=== PATIENT | female | born 2000 | race Caucasian/White ===

== ENCOUNTER 2019-12-23 23:19 | Inpatient (IN) | payer BC, MEDICAID ==
--- NOTE | 2019-12-23 23:48 | ED ---
General Adult HPI <Magda Taylor P - Last Filed: 12/24/19 01:39> - General Source: patient, family, RN notes reviewed <Antoni Sales - Last Filed: 12/24/19 01:56> - General Stated complaint: Mental Health Time Seen by Provider: 12/23/19 23:23 - History of Present Illness Initial comments: 19-year-old female with a past medical history of Thad's disease presents to the emergency Department for paranoid thoughts. Patient reports she has had paranoid thoughts for the past 5 months. Patient feels that people are out to get her. Patient thinks her phone and radio are being monitored by people who are after her. Patient states today she started to get really scared of this when she was driving and started to drive erratically and fast through red lights in an attempt to kill herself. Mother is very concerned about this. States that in the past few days she has not been acting normal. She locked everyone out of the house. Mother states that she keeps asking her if "she is in on this." Patient is currently having thoughts of harming herself as well.Patient has no other complaints at this time including shortness of breath, chest pain, abdominal pain, nausea or vomiting, headache, or visual changes. (Antoni Sales) - Related Data Home Medications Medication Instructions Recorded Confirmed Ibuprofen [Advil] 200 mg PO Q8HR PRN 07/28/15 07/28/15 Melatonin 3 mg PO HS 07/28/15 07/28/15 Methylphenidate HCl 72 mg PO DAILY 07/28/15 07/28/15 [Methylphenidate ER] Previous Rx's Medication Instructions Recorded Albuterol Nebulized [Ventolin 2.5 mg INHALATION Q4H #1 box 07/31/15 Nebulized] Polyethylene Glycol 3350 [Miralax] 17 gm PO DAILY #527 gm 07/31/15 Allergies Allergy/AdvReac Type Severity Reaction Status Date / Time venom-honey bee Allergy Swelling Verified 07/28/15 21:10 [bee venom (honey bee)] Review of Systems ROS Other: All systems not noted in ROS Statement are negative. <Magda Taylor P - Last Filed: 12/24/19 01:39> ROS Other: All systems not noted in ROS Statement are negative. <Mónica,Antoni P - Last Filed: 12/24/19 01:56> ROS Statement: Those systems with pertinent positive or pertinent negative responses have been documented in the HPI. 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 Then blood levels came back and lowered, didnt feel high enough to keep on the synthroid. Off of synthroid since she was about 9 y/o. History of Any Multi-Drug Resistant Organisms: None Reported Additional Past Surgical History / Comment(s): PT HAD BEEN IN HOSPITAL COUPLE TIMES AND WAS DX WITH ASTHMA IN 2006. PT HAS HX OF AN ENDOSCOPY AT [facility] AND DID FINE WITH ANESTHESIA Past Anesthesia/Blood Transfusion Reactions: No Reported Reaction Additional Past Anesthesia/Blood Transfusion Reaction / Comment(s): NO BLOOD TRANSFUSION Past Psychological History: ADD/ADHD Past Alcohol Use History: None Reported Past Drug Use History: None Reported - Past Family History Brother(s) Family Medical History: Asthma Additional Family Medical History / Comment(s): BIO BROTHER WAS DX W/ASTHMA BUT GREW OUT OF IT BY AGE 3. <Antoni Sales P - Last Filed: 12/24/19 01:56> General Exam General appearance: alert, in no apparent distress Head exam: Present: atraumatic, normocephalic, normal inspection Eye exam: Present: normal appearance, PERRL, EOMI. Absent: scleral icterus, conjunctival injection, periorbital swelling ENT exam: Present: normal exam, mucous membranes moist Neck exam: Present: normal inspection, full ROM. Absent: tenderness, meningismus, lymphadenopathy Respiratory exam: Present: normal lung sounds bilaterally. Absent: respiratory distress, wheezes, rales, rhonchi, stridor Cardiovascular Exam: Present: regular rate, normal rhythm, normal heart sounds. Absent: systolic murmur, diastolic murmur, rubs, gallop, clicks GI/Abdominal exam: Present: soft, normal bowel sounds. Absent: distended, tenderness, guarding, rebound, rigid Neurological exam: Present: alert Psychiatric exam: Present: anxious (Tearful) <Antoni Sales P - Last Filed: 12/24/19 01:56> Course Vital Signs 12/23/19 23:42 Temperature 98.6 F Pulse Rate 98 Respiratory 18 Rate Blood Pressure 132/84 O2 Sat by Pulse 97 Oximetry Medical Decision Making <Magda Taylor - Last Filed: 12/24/19 01:39> - Medical Decision Making Personally saw and evaluated this patient. 19-year-old female who is experiencing some acute paranoia anxieties. Does admit to polysubstance use. Patient is agreeable to admission to the psychiatric unit. A cert was completed (Magda Taylor) - Lab Data Lab Results 12/23/19 Range/Units 23:41 Urine Color Yellow Urine Appearance Cloudy H (Clear) Urine pH 6.0 (5.0-8.0) Ur Specific [place] 1.024 (1.001-1.035) Urine Protein Trace H (Negative) Urine Glucose (UA) Negative (Negative) Urine Ketones 4+ H (Negative) Urine Blood Negative (Negative) Urine Nitrite Negative (Negative) Urine Bilirubin Negative (Negative) Urine Urobilinogen <2.0 (<2.0) mg/dL Ur Leukocyte Esterase Moderate H (Negative) Urine RBC 4 (0-5) /hpf Urine WBC 25 H (0-5) /hpf Ur Squamous Epith Cells 9 H (0-4) /hpf Urine Bacteria Rare H (None) /hpf Hyaline Casts 1 (0-2) /lpf Urine Mucus Many H (None) /hpf Urine Opiates Screen Not Detected (NotDetected) Ur Oxycodone Screen Not Detected (NotDetected) Urine Methadone Screen Not Detected (NotDetected) Ur Propoxyphene Screen Not Detected (NotDetected) Ur Barbiturates Screen Not Detected (NotDetected) U Tricyclic Antidepress Not Detected (NotDetected) Ur Phencyclidine Scrn Not Detected (NotDetected) Ur Amphetamines Screen Not Detected (NotDetected) U Methamphetamines Scrn Not Detected (NotDetected) U Benzodiazepines Scrn Not Detected (NotDetected) Urine Cocaine Screen Not Detected (NotDetected) U Marijuana (THC) Screen Detected H (NotDetected) Disposition <Magda Taylor - Last Filed: 12/24/19 01:39> Is patient prescribed a controlled substance at d/c from ED?: No Time of Disposition: 01:55 <Antoni Sales P - Last Filed: 12/24/19 01:56> Clinical Impression: Paranoid delusion, Suicidal thoughts Disposition: ADMITTED IP TO THIS HOSP Condition: Fair
[2019-12-24 00:13] LABS: Appearance,Urine Cloudy (Clear); Bacteria,Urine Rare /hpf; Bilirubin,Urine Negative (Negative); Blood,Urine Negative (Negative); Color,Urine Yellow; Glucose,Urine (UA) Negative (Negative); Hyaline Casts,Urine 1 /lpf (0-2); Ketones,Urine 4+ (Negative); Leukocyte Esterase,Urine Moderate (Negative); Mucus,Urine Many /hpf; Nitrite,Urine Negative (Negative); Protein,Urine Trace (Negative); RBC,Urine 4 /hpf (0-5); Specific Gravity,Urine 1.024 (1.001-1.035); Squamous Epithelial Cell,Urine 9 /hpf (0-4); Urobilinogen,Urine <2.0 mg/dL (<2.0); WBC,Urine 25 /hpf (0-5)
[2019-12-24 00:16] LABS: Amphetamine Screen,Urine Not Detected (NotDetected); Barbiturate Screen,Urine Not Detected (NotDetected); Benzodiazepines Screen,Urine Not Detected (NotDetected); Cocaine Screen,Urine Not Detected (NotDetected); Methadone Screen, Urine Not Detected (NotDetected); Opiate Screen,Urine Not Detected (NotDetected); Oxycodone Screen, Urine Not Detected (NotDetected); Phencyclidine Screen,Urine Not Detected (NotDetected); Tricyclic Antidepressant,Urine Not Detected (NotDetected); Urn Cannabinoid Scrn Detected (NotDetected)
[2019-12-24] MEDS ORDERED: LORazepam 1 MG TAB PO STA (01:19)
[2019-12-24] MEDS ORDERED: MAG HYDROX/AL HYDROX/SIMETH 30 ML CUP PO PRN (01:59)
[2019-12-24] MEDS ORDERED: ACETAMINOPHEN TAB 325 MG TAB PO PRN (01:59)
[2019-12-24 09:17] LABS: Basophils % (A) 1 %; Eosinophils # (A) 0.1 k/uL (0-0.7); Eosinophils % (A) 1 %; HCT 41.1 % (34.0-46.0); HGB 13.6 gm/dL (11.4-16.0); Lymphocytes # (A) 1.1 k/uL (1.0-4.8); Lymphocytes % (A) 20 %; MCH 30.4 pg (25.0-35.0); MCV 92.1 fL (80.0-100.0); Mean Platelet Volume 7.6; Monocytes # (A) 0.3 k/uL (0-1.0); Monocytes % (A) 5 %; Neutrophils # (A) 3.8 k/uL (1.3-7.7); Neutrophils % (A) 71 %; Platelet Count 265 k/uL (150-450); RBC 4.46 m/uL (3.80-5.40); RDW 12.8 % (11.5-15.5); WBC 5.3 k/uL (4.0-11.0)
[2019-12-24 09:32] LABS: ALT 13 U/L (4-34); AST 21 U/L (14-36); African American GFR (CKD) >90 (>60 ml/min/1.73 sqM); Alkaline Phosphatase 52 U/L (38-126); Anion Gap 11 mmol/L; Blood Urea Nitrogen 12 mg/dL (7-17); Calcium 9.5 mg/dL (8.4-10.2); Carbon Dioxide 23 mmol/L (22-30); Chloride 104 mmol/L (98-107); Cholesterol 143 mg/dL (<200); Glucose 121 mg/dL (74-99); HDL Cholesterol 61 mg/dL (40-60); LDL Cholesterol,Calculated 71 mg/dL (0-99); Non-African American GFR(CKD) >90 (>60 ml/min/1.73 sqM); Potassium 3.5 mmol/L (3.5-5.1); Sodium 138 mmol/L (137-145); Total Bilirubin 1.1 mg/dL (0.2-1.3); Total Protein 7.5 g/dL (6.3-8.2); Triglycerides 55 mg/dL (<150)
[2019-12-24] MEDS: NICOTINE 21MG/24HR PATCH TRANSDERM SCH (11:40)
[2019-12-24] MEDS: polyethylene glycoL 3350 17 GM POWD.PACK PO SCH (12:25)
[2019-12-24] MEDS: ZIPRASIDONE 20 MG VIAL IM PRN (13:25)
[2019-12-24] MEDS: ALBUTEROL NEBULIZED 2.5 MG/3 ML INHALATION SCH ×2 (13:34→18:34)
--- NOTE | 2019-12-24 18:33 | P.CONS ---
History of Present Illness - Reason for Consult Consult date: 12/24/19 Medical management Requesting physician: Mio Burch - Chief Complaint Psychotic - History of Present Illness Consultation: This is a 19-year-old patient of Dr. yepez from [place]. Has a history of Thad's disease. 4 paranoid parts. She's had these symptoms for about 5 months. She feels a people out to get her. She thinks cell phone and the radio being monitored by the people. Day of presentation she felt that people will really help to get her she was driving she started driving erratically and went through red lights. Last 5 days she has been acting more abnormal. She EVERYBODY out of the house. She keeps asking if she is on this. She's also h aving thoughts of harming herself. At about 1 PM today she received 20 mg of Geodon. Patient hardly stepped off that. Date of this afternoon patient was having significant amount of vomiting. No bowel pain. Patient had a fair breakfast this morning otherwise.. No fever no chills. No abdominal pain. Review of systems: GEN.: Tired EYES: None HEENT: None NECK: None RESPIRATORY: None CARDIOVASCULAR: None GASTROINTESTINAL: As above GENITOURINARY: None MUSCULOSKELETAL: None LYMPHATICS: None HEMATOLOGICAL: None PSYCHIATRY: As above NEUROLOGICAL: None Past medical history to include: Asthma, Thad's, ADHD. Social history: Lives with mother. vapes.. This 2-4 joints a day. Physical examination: VITAL SIGNS: 97.1, 70, 14, 113/85, 99% room air GENERAL: BMI 18, laying in bed, nauseated. EYES: Pupils equal. Conjunctiva normal. HEENT: External appearance of nose and ears normal, oral cavity grossly normal. NECK: JVD not raised; masses not palpable. HEART: First and second heart sounds are normal; no edema. LUNGS: Respiratory rate normal; clear to auscultation. ABDOMEN: Soft, nontender, liver spleen not palpable, no masses palpable. PSYCH: Anxious NEUROLOGICAL: Cranial nerves grossly intact; no facial asymmetry, power and sensation grossly intact. LYMPHATICS: No lymph nodes palpable in the axilla and neck. INVESTIGATIONS, reviewed in the clinical context: White count 5.3 hemoglobin 13.6 platelets 265 potassium 3.5 creatinine 0.53 UA results noted with's,'s epithelial 9 Urine drug screen-marijuana detected Assessment: -Decreased to marijuana use -Chronic nicotine use -Nausea vomiting possibly side effect of Geodon Plan: Patient advised again smoking marijuana. Possible nausea vomiting secondary to Geodon. She settled down. Nicotine patch. Patient to follow-up with family doctor. Antipsychotics as per psychiatry. Thank you Dr. 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 Then blood levels came back and lowered, didnt feel high enough to keep on the synthroid. Off of synthroid since she was about 9 y/o. History of Any Multi-Drug Resistant Organisms: None Reported Additional Past Surgical History / Comment(s): PT HAD BEEN IN HOSPITAL COUPLE TIMES AND WAS DX WITH ASTHMA IN 2006. PT HAS HX OF AN ENDOSCOPY AT [facility] AND DID FINE WITH ANESTHESIA Past Anesthesia/Blood Transfusion Reactions: No Reported Reaction Additional Past Anesthesia/Blood Transfusion Reaction / Comm: NO BLOOD TRANSFUSION Past Psychological History: ADD/ADHD Smoking Status: Vaper Past Alcohol Use History: None Reported Past Drug Use History: Marijuana - Past Family History Brother(s) Family Medical History: Asthma Additional Family Medical History / Comment(s): BIO BROTHER WAS DX W/ASTHMA BUT GREW OUT OF IT BY AGE 3. Medications and Allergies Home Medications Medication Instructions Recorded Confirmed Type Ibuprofen [Advil] 200 mg PO Q8HR PRN 07/28/15 12/24/19 History Melatonin 3 mg PO HS 07/28/15 12/24/19 History Methylphenidate HCl 72 mg PO DAILY 07/28/15 12/24/19 History [Methylphenidate ER] Albuterol Nebulized [Ventolin 2.5 mg INHALATION Q4H #1 box 07/31/15 12/24/19 Rx Nebulized] Polyethylene Glycol 3350 [Miralax] 17 gm PO DAILY #527 gm 07/31/15 12/24/19 Rx Allergies Allergy/AdvReac Type Severity Reaction Status Date / Time venom-honey bee Allergy Swelling Verified 12/24/19 02:05 [bee venom (honey bee)] Physical Exam Vitals: Vital Signs Temp Pulse Pulse Resp BP BP Pulse Ox 12/24/19 02:28 97.1 F L 70 14 113/85 99 12/23/19 23:42 98.6 F 98 18 132/84 97 Intake and Output 12/23/19 12/24/19 12/24/19 22:59 06:59 14:59 Other: Weight 50.7 kg Results CBC & Chem 7: 12/24/19 08:51 12/24/19 08:51 Labs: Abnormal Lab Results - Last 24 Hours (Table) 12/23/19 12/24/19 Range/Units 23:41 08:51 Glucose 121 H (74-99) mg/dL HDL Cholesterol 61 H (40-60) mg/dL Urine Appearance Cloudy H (Clear) Urine Protein Trace H (Negative) Urine Ketones 4+ H (Negative) Ur Leukocyte Esterase Moderate H (Negative) Urine WBC 25 H (0-5) /hpf Ur Squamous Epith Cells 9 H (0-4) /hpf Urine Bacteria Rare H (None) /hpf Urine Mucus Many H (None) /hpf U Marijuana (THC) Screen Detected H (NotDetected)
[2019-12-24 19:55] LABS: Hemoglobin A1C 5.3 % (4.0-6.0)
[2019-12-24] MEDS: LORazepam 1 MG TAB PO PRN (20:44)
[2019-12-24] MEDS: MELATONIN 3 MG TABLET PO SCH (22:04)
[2019-12-24] MEDS: PROMETHAZINE INJ 25 MG/ML 1 ML VIAL IM PRN (22:05)
[2019-12-24 22:23] LABS: Glucose,Whole Blood 116 mg/dL (75-99)
[2019-12-24] MEDS ORDERED: LACTATED RINGERS 1,000 ML IV SCH (23:00)
[2019-12-24] MEDS: CEPHALEXIN 250 MG CAP PO SCH (23:12)
[2019-12-24 23:24] LABS: African American GFR (CKD) >90 (>60 ml/min/1.73 sqM); Anion Gap 13 mmol/L; Blood Urea Nitrogen 13 mg/dL (7-17); Calcium 9.8 mg/dL (8.4-10.2); Carbon Dioxide 18 mmol/L (22-30); Chloride 104 mmol/L (98-107); Glucose 107 mg/dL (74-99); Magnesium 1.9 mg/dL (1.6-2.3); Non-African American GFR(CKD) >90 (>60 ml/min/1.73 sqM); Potassium 3.6 mmol/L (3.5-5.1); Sodium 135 mmol/L (137-145)
[2019-12-25] MEDS: CEPHALEXIN 250 MG CAP PO SCH ×5 (00:45→21:14)
[2019-12-25] MEDS ORDERED: LACTATED RINGERS 500 ML IV SCH (03:30)
[2019-12-25] MEDS: PROMETHAZINE INJ 25 MG/ML 1 ML VIAL IM PRN (03:50)
[2019-12-25] MEDS: LORazepam 2 MG/ML INJ IM PRN (04:25)
--- NOTE | 2019-12-25 07:49 | P.HP ---
Psychiatric H&P - . H&P Date: 12/24/19 History & Physical: Allergies Allergy/AdvReac Type Severity Reaction Status Date / Time venom-honey bee Allergy Swelling Verified 12/24/19 02:05 [bee venom (honey bee)] Vital Signs Temp 98.1 F 12/25/19 03:06 Pulse 72 12/24/19 22:05 Resp 18 12/25/19 03:06 BP 121/94 12/25/19 03:06 Pulse Ox 100 12/24/19 22:05 Intake & Output 12/24/19 12/25/19 12/25/19 18:59 06:59 18:59 Intake Total 500 Output Total 200 Balance 300 Intake: IV 500 Invasive Line 1 500 Output: Urine 0 Emesis 200 Other: # Voids 0 # Bowel Movements 1 Laboratory Last Values WBC 5.3 k/uL (4.0-11.0) 12/24/19 08:51 RBC 4.46 m/uL (3.80-5.40) 12/24/19 08:51 Hgb 13.6 gm/dL (11.4-16.0) 12/24/19 08:51 Hct 41.1 % (34.0-46.0) 12/24/19 08:51 MCV 92.1 fL (80.0-100.0) 12/24/19 08:51 MCH 30.4 pg (25.0-35.0) 12/24/19 08:51 MCHC 33.0 g/dL (31.0-37.0) 12/24/19 08:51 RDW 12.8 % (11.5-15.5) 12/24/19 08:51 Plt Count 265 k/uL (150-450) 12/24/19 08:51 Neutrophils % 71 % 12/24/19 08:51 Lymphocytes % 20 % 12/24/19 08:51 Monocytes % 5 % 12/24/19 08:51 Eosinophils % 1 % 12/24/19 08:51 Basophils % 1 % 12/24/19 08:51 Neutrophils # 3.8 k/uL (1.3-7.7) 12/24/19 08:51 Lymphocytes # 1.1 k/uL (1.0-4.8) 12/24/19 08:51 Monocytes # 0.3 k/uL (0-1.0) 12/24/19 08:51 Eosinophils # 0.1 k/uL (0-0.7) 12/24/19 08:51 Basophils # 0.0 k/uL (0-0.2) 12/24/19 08:51 Sodium 135 mmol/L (137-145) L 12/24/19 23:03 Potassium 3.6 mmol/L (3.5-5.1) 12/24/19 23:03 Chloride 104 mmol/L (98-107) 12/24/19 23:03 Carbon Dioxide 18 mmol/L (22-30) L 12/24/19 23:03 Anion Gap 13 mmol/L 12/24/19 23:03 BUN 13 mg/dL (7-17) 12/24/19 23:03 Creatinine 0.43 mg/dL (0.52-1.04) L 12/24/19 23:03 Est GFR (CKD-EPI)AfAm >90 (>60 ml/min/1.73 sqM) 12/24/19 23:03 Est GFR (CKD-EPI)NonAf >90 (>60 ml/min/1.73 sqM) 12/24/19 23:03 Glucose 107 mg/dL (74-99) H 12/24/19 23:03 POC Glucose (mg/dL) 116 mg/dL (75-99) H 12/24/19 22:20 POC Glu [employer] Lianet Granados 12/24/19 22:[address] Glu mg/dL 105 12/24/19 08:51 Hemoglobin A1c 5.3 % (4.0-6.0) 12/24/19 08:51 Calcium 9.8 mg/dL (8.4-10.2) 12/24/19 23:03 Magnesium 1.9 mg/dL (1.6-2.3) 12/24/19 23:03 Total Bilirubin 1.1 mg/dL (0.2-1.3) 12/24/19 08:51 AST 21 U/L (14-36) 12/24/19 08:51 ALT 13 U/L (4-34) 12/24/19 08:51 Alkaline Phosphatase 52 U/L (38-126) 12/24/19 08:51 Total Protein 7.5 g/dL (6.3-8.2) 12/24/19 08:51 Albumin 5.0 g/dL (3.5-5.0) 12/24/19 08:51 Triglycerides 55 mg/dL (<150) 12/24/19 08:51 Cholesterol 143 mg/dL (<200) 12/24/19 08:51 LDL Cholesterol, Calc 71 mg/dL (0-99) 12/24/19 08:51 HDL Cholesterol 61 mg/dL (40-60) H 12/24/19 08:51 TSH 3.990 mIU/L (0.465-4.680) 12/24/19 08:51 Urine Color Yellow 12/23/19 23:41 Urine Appearance Cloudy (Clear) H 12/23/19 23:41 Urine pH 6.0 (5.0-8.0) 12/23/19 23:41 Ur Specific [place] 1.024 (1.001-1.035) 12/23/19 23:41 Urine Protein Trace (Negative) H 12/23/19 23:41 Urine Glucose (UA) Negative (Negative) 12/23/19 23:41 Urine Ketones 4+ (Negative) H 12/23/19 23:41 Urine Blood Negative (Negative) 12/23/19 23:41 Urine Nitrite Negative (Negative) 12/23/19 23:41 Urine Bilirubin Negative (Negative) 12/23/19 23:41 Urine Urobilinogen <2.0 mg/dL (<2.0) 08 23:41 Ur Leukocyte Esterase Moderate (Negative) H 12/23/19 23:41 Urine RBC 4 /hpf (0-5) 12/23/19 23:41 Urine WBC 25 /hpf (0-5) H 12/23/19 23:41 Ur Squamous Epith Cells 9 /hpf (0-4) H 12/23/19 23:41 Urine Bacteria Rare /hpf (None) H 12/23/19 23:41 Hyaline Casts 1 /lpf (0-2) 12/23/19 23:41 Urine Mucus Many /hpf (None) H 12/23/19 23:41 Urine HCG, Qual Not Detected (Not Detectd) 12/23/19 23:41 Urine Opiates Screen Not Detected (NotDetected) 12/23/19 23:41 Ur Oxycodone Screen Not Detected (NotDetected) 12/23/19 23:41 Urine Methadone Screen Not Detected (NotDetected) 12/23/19 23:41 Ur Propoxyphene Screen Not Detected (NotDetected) 12/23/19 23:41 Ur Barbiturates Screen Not Detected (NotDetected) 12/23/19 23:41 U Tricyclic Antidepress Not Detected (NotDetected) 12/23/19 23:41 Ur Phencyclidine Scrn Not Detected (NotDetected) 12/23/19 23:41 Ur Amphetamines Screen Not Detected (NotDetected) 12/23/19 23:41 U Methamphetamines Scrn Not Detected (NotDetected) 12/23/19 23:41 U Benzodiazepines Scrn Not Detected (NotDetected) 12/23/19 23:41 Urine Cocaine Screen Not Detected (NotDetected) 12/23/19 23:41 U Marijuana (THC) Screen Detected (NotDetected) H 12/23/19 23:41 12/25/19 07:35 History of present illness: The patient is somewhat pressured and therefore not a real good historian. It seems that the last 3 months she is been having more trouble with believe that her phone and radio are being monitored and that people are staring at her. She began to even worry that her mom was in on it. She was driving her car and began to feel she was being followed and began to drive too fast not paying attention to rules of the road and had a psychotic t hought that since her going to kill me, as well kill myself. She purchased a brand-new life phone which is very expensive and she felt it was hacked so she threw it out the window due to her mother's concern and these events patient was brought to the ER and admitted to the psychiatric unit. She is not on any psychotropic medicines at this time except for 3 mg of melatonin to help her sleep Past psychiatric history the patient was once diagnosed with ADD and took Concerta can't remember whether that helped has had no medications for a long period of time. No psychiatric hospitalizations Medical: The patient has a history of asthma and history of Thad's thyroiditis which backed off to the point she does not need any kind of thyroid supplement her medication. She is young and relatively healthy otherwise has not gained or lost weight lately but does complain of trouble sleeping. Review of systems other than some sleep problems and some decrease in appetite and the day of admission she was throwing up no trouble with aches and pains or weakness or fainting dizziness or blurred vision or trouble breathing the rest of the review of systems is negative She has not had labs in the long period time approximate 4 years ago. We ran labs here and she had a normal hematology her chemistry was off somewhat with her serum salt being low sodium 135 and chloride was okay carbon dioxide was low GFR was low glucose was okay with 107. Urinalysis showed a cloudy trace protein 4+ ketones she has not been eating lately and she felt that her food was poisoned moderate leukocyte 25 white count. She could have a slight urinary tract infection I think though she starts drinking fluids and eating properly that will pry clear up so we will recheck it. On toxicology her marijuana was positive everything else negative. Vital signs temperature 97.9 heart rate 72 respiration 20 blood pressure 119/64 and O2 sat 100 Social history the patient's the third of 6 children in the family she was raised in. She was adopted at age 2 and knows little about her family of origin except that her mother from a drug overdose and her dad was in residential. As far she knows she is full-term child and healthy as a baby she finished high school although she always had to struggle she said school was terrible because she could not focus and all her thoughts would jumble up together. 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 She had a boyfriend for the last 5 months felt that he really cared about her then she found that he was cheating on her and that has probably contributed to the recent increase in her symptoms. She has been living with [facility] at this point she really has no place to go when she is discharged. She says she's been sitting in the apartment watching TV most of the time. Mental status exam the patient is alert almost too bubbly and open with slight pressure of speech reasonable self-care good eye contact gait and station normal she could remember 3 of 3 objects after 3 minutes although I to repeat them for her to get is in the first place. General information is somewhat impaired she going name the current and previous president but partly her mind gets to racing for example when asked to name the [place] she said [place] Dwyer superior and forgot here on in trying to spell world backward she is flipped on are around when asked to abstract how cats and snakes are alike she said there are not said how they alike and different from a stone she said they're living and then she could not think of anything else it seemed and she agreed that her mind races off from the question she says that right now in this setting she does not feel like people are watching her and she seemed very open with me did not seem to be reacting to voices Diagnosis: Brief psychotic disorder ADHD Assessment plan the patient is a danger to herself and others because and her fear she does sings that would endanger both herself and others and even has thoughts that are rational that she killed herself she can solve the whole problem The plan is to start her on an antipsychotic will give her 100 of Seroquel tonight 200 tomorrow and get her up to 300 if the paranoia clears we might consider adding something for depression and focus such as Wellbutrin.
--- NOTE | 2019-12-25 09:45 | P.PN ---
Subjective Progress Note Date: 12/25/19 Principal diagnosis: Diagnosis: Brief psychotic disorder Subjective: The patient had 100 mg of Seroquel last night she is somewhat sleepy this morning Objective the patient had difficult time yesterday she had a psychotic experience whereby his face looked the same and it really bothered her and had to have Geodon 20 IM. Early this morning she was throwing up a lot. Son likely that this was from the Seroquel little unclear as to what it was from could be just severe anxiety. She was feeling sleepy this morning but didn't complain of any nausea or vomiting when I saw her at 9:00 Vital signs: Temperature 98.1 she doesn't have a fever respirations 18 blood pressure 121/94 which is a little elevated diastolic she runs around 70 and oxygenation is fine Labs: Nothing acute ROM hematology was fine some other indices are slightly off like the creatinine was low but wasn't yesterday and sodium was low just a little bit nothing acute that would explain her problems On mental status exam the patient is sleepy and did not want to talk but oriented good eye contact said she was doing okay did not look anxious Assessment is that she tolerated the medicine but is not enough to really give her much relief will see if she needs Geodon today and I will increase his Seroquel to 200 and hopefully she will be too sleepy will probably have to get to 300 before she gets some real relief of the psychosis Objective - Vital Signs Vital signs: Vital Signs Temp 98.1 F 12/25/19 03:06 Pulse 72 12/24/19 22:05 Resp 18 12/25/19 03:06 BP 121/94 12/25/19 03:06 Pulse Ox 100 12/24/19 22:05 Intake & Output 12/24/19 12/25/19 12/25/19 18:59 06:59 18:59 Intake Total 500 Output Total 200 Balance 300 Intake: IV 500 Invasive Line 1 500 Output: Urine 0 Emesis 200 Other: # Voids 0 # Bowel Movements 1 - Labs CBC & Chem 7: 12/24/19 08:51 12/24/19 23:03 Labs: Abnormal Lab Results - Last 24 Hours (Table) 12/24/19 12/24/19 Range/Units 22:20 23:03 Sodium 135 L (137-145) mmol/L Carbon Dioxide 18 L (22-30) mmol/L Creatinine 0.43 L (0.52-1.04) mg/dL Glucose 107 H (74-99) mg/dL POC Glucose (mg/dL) 116 H (75-99) mg/dL Microbiology - Last 24 Hours (Table) 12/23/19 23:41 Urine Culture - Preliminary Urine,Voided
[2019-12-25 09:54] LABS: African American GFR (CKD) >90 (>60 ml/min/1.73 sqM); Anion Gap 10 mmol/L; Blood Urea Nitrogen 11 mg/dL (7-17); Calcium 9.1 mg/dL (8.4-10.2); Carbon Dioxide 24 mmol/L (22-30); Chloride 100 mmol/L (98-107); Glucose 88 mg/dL (74-99); Magnesium 1.9 mg/dL (1.6-2.3); Non-African American GFR(CKD) >90 (>60 ml/min/1.73 sqM); Potassium 3.7 mmol/L (3.5-5.1); Sodium 134 mmol/L (137-145)
[2019-12-25] MEDS: polyethylene glycoL 3350 17 GM POWD.PACK PO SCH (10:22)
[2019-12-25] MEDS: NICOTINE 21MG/24HR PATCH TRANSDERM SCH (10:22)
[2019-12-25] MEDS: QUEtiapine 100 MG TAB PO SCH ×2 (19:53→21:14)
[2019-12-25] MEDS: MELATONIN 3 MG TABLET PO SCH ×2 (19:53→21:14)
[2019-12-26] MEDS: NICOTINE 21MG/24HR PATCH TRANSDERM SCH ×2 (10:29→21:14)
[2019-12-26] MEDS: polyethylene glycoL 3350 17 GM POWD.PACK PO SCH (10:29)
[2019-12-26] MEDS: CEPHALEXIN 250 MG CAP PO SCH ×3 (10:29→21:12)
[2019-12-26] MEDS ORDERED: ZIPRASIDONE 20 MG VIAL IM ONE (11:57)
[2019-12-26] MEDS ORDERED: WATER FOR INJECTION, STERILE 10 ML IV ONE (11:57)
[2019-12-26] MEDS: LORazepam 2 MG/ML INJ IM PRN (12:07)
[2019-12-26] MEDS: ZIPRASIDONE 20 MG VIAL IM PRN (12:07)
[2019-12-26] MEDS: MELATONIN 3 MG TABLET PO SCH (21:12)
[2019-12-26] MEDS: QUEtiapine 100 MG TAB PO SCH (21:12)
--- NOTE | 2019-12-27 07:19 | P.PN ---
Subjective Progress Note Date: 12/26/19 Principal diagnosis: Diagnosis: Brief psychotic disorder Subjective: The patient says that she talk to her mother who is a nurse who said that yes I was a registered doctor, however she does not trust her mother. Yesterday she admits to thinking everybody had the same face and it made her very anxious. However she now says, "I just made a mistake". She admits that she was using street drugs and says that she is determined to stay off of them that "I'm not crazy". She started weeping at the thought that she might have a psychotic disorder. She said, "I'm not going to take any medications I don't need medications". She says she slept okay last night and is not feeling as anxious this morning. However she is was so fearful of a patient walking down the that she move near to me and said I'm afraid of that man can I stand next to you? She said that she wanted talk to real doctor not a psychiatrist. When I explained that a psychiatrist becomes an M.D. and is trained in medicine before he goes on to specialize in psychiatry, she listened but seemed skeptic al. Objective: Patient did have Seroquel 100 last night I think she is somewhat better she does not look lethargic by think she needs a higher dose little bit more time for her to kick and she is still excessively anxious and paranoid. The patient is having a lot of trouble with chills and agitation restless. Her vital signs are okay temperature is not elevated 98 for heart rate is not elevated 65 respiration 14 blood pressure 111/53 room air was 98. ( Probably she is going through withdrawal from all the street drugs she used). Labs she had another general chemistry run yesterday sodium is gone down from 138 on 83-134 maybe from the vomiting otherwise everything was fine. She was noted to sleep well last night. Thisshe denies any suicidality or homicidality seems oriented and logical Mental status the patient has a very tense affect and is unable to trust her mother or me or the other patients. She does not seem to be responding to voices and says "I am not crazy ". She does have difficulty waiting her logic together. For example she jumps from I'm not going to use drugs, to I'm not crazy, to I want to talk to her real doctor, without tying any of these together. Assessment plan the patient is a danger to herself and others that she remains paranoid and in her paranoia she was thinking of killing herself to keep other people from killing her and was driving dangerously which endangered other people. I think that she is just still paranoid and wants to get out of here and his private paranoid about the medication and so is saying that she is fine now but she is not. Some going to increase the Seroquel to 200 tonight and if she takes that right 300 tomorrow. However she refuses to take it then we will have to take her to court we will petition and cert her Objective - Vital Signs Vital signs: Vital Signs Temp 98.4 F 12/26/19 06:44 Pulse 65 12/26/19 06:44 Resp 14 12/26/19 06:44 BP 111/53 12/26/19 06:44 Pulse Ox 98 12/25/19 21:14 - Labs CBC & Chem 7: 12/24/19 08:51 12/25/19 09:06 Labs: Abnormal Lab Results - Last 24 Hours (Table) 12/25/19 Range/Units 09:06 Sodium 134 L (137-145) mmol/L Creatinine 0.48 L (0.52-1.04) mg/dL Microbiology - Last 24 Hours (Table) 12/23/19 23:41 Urine Culture - Final Urine,Voided
[2019-12-27] MEDS: CEPHALEXIN 250 MG CAP PO SCH ×3 (08:25→21:44)
[2019-12-27] MEDS: polyethylene glycoL 3350 17 GM POWD.PACK PO SCH (08:25)
[2019-12-27] MEDS: NICOTINE 21MG/24HR PATCH TRANSDERM SCH (08:25)
--- NOTE | 2019-12-27 10:48 | P.PN ---
Subjective Progress Note Date: 12/27/19 Principal diagnosis: Diagnosis: Brief psychotic disorder Subjective: Patient admits that things in here do make her anxious, she denies any thoughts that she should kill herself or hurt others. She says that there are sharp things in her room that her roommate/stop the roommates pillow and probably had the short things in the patient's bed and that's why she wants to staff to make her bed for her. Objective: Nursing staff report that last night she had delusional agitation in regards to her room not being clean and it not being possible for her to do her own cleaning, she was also preoccupied with doctors aren't actually doctors however she did take her Seroquel going to increase that to 300 tonight and hopefully start getting some clearing of this delusional agitation. She had to have a shot of Geodon and Ativan because she would not take medicines when agitated. Vital signs temperature 98.9 heart rate 78 respiration 14 blood pressure 111/59 Labs: No new labs yesterday or today Staff report that she is anxious, mood swing between smiling and sad. She is able take care of her ADLs she has very little interaction with peers often withdrawn and sometimes having very poor boundaries she was found with one of male peers in bed is unclear who invited whom. She is quite emotional weeping over the fact that she couldn't remember all the patient's names although she's only been here a couple of days. Speech is often pressured. Groups she is she does not attend groups. She was able to sleep well Patient has a good sense of humor is alert good eye contact much calmer today points out she did take her medicine last night. However she does get off on how the reason she did not want to make her bed she thought that her roommate may have had some sharp objects in her bed and that she could get injured trying to make her own bed. She still felt like that was a reasonable concern Assessment: I believe the patient still danger to self or others due to 0 insight and only minimal improvement on her delusional systems. The improvement is probably due to the structured environment she is in, however 2 doses of Seroquel might be starting to help. She still overreacts to delusional misinterpretations are minor irritants with tearfulness. This could easily lead to the same kind of thinking she had before admission where she was going to crash her car and kill herself because other people are trying to kill her. Plan increase Seroquel to 300 tonight's and she did take her medicine last night after saying she was not going to. Objective - Vital Signs Vital signs: Vital Signs Temp 98.9 F 12/27/19 05:59 Pulse 78 12/27/19 05:59 Resp 14 12/27/19 05:59 BP 111/59 12/27/19 05:59 Pulse Ox 99 12/27/19 05:59 - Labs CBC & Chem 7: 12/24/19 08:51 12/25/19 09:06
--- NOTE | 2019-12-27 15:49 | CT ---
EXAMINATION TYPE: CT brain wo con DATE OF EXAM: 12/27/2019 COMPARISON: None. HISTORY: Fall with head injury and headache CT DLP: 1165 mGycm. Automated Exposure Control for Dose Reduction was Utilized. TECHNIQUE: CT scan of the head is performed without contrast. FINDINGS: Some artifact at level of skull base is noted. There is no acute intracranial hemorrhage, mass effect, or midline shift identified. The ventricles and sulci are within normal limits in size. Celis-white matter differentiation is maintained. The calvarium is intact. The globes are intact and the visualized sinuses are clear. IMPRESSION: No acute intracranial hemorrhage, mass effect, or midline shift is seen.
[2019-12-27] MEDS ORDERED: QUEtiapine 100 MG TAB PO SCH (21:00)
[2019-12-27] MEDS: QUEtiapine 100 MG TAB PO SCH (21:43)
[2019-12-27] MEDS: MELATONIN 3 MG TABLET PO SCH (21:44)
[2019-12-28] MEDS: CEPHALEXIN 250 MG CAP PO SCH ×3 (09:03→20:32)
[2019-12-28] MEDS: polyethylene glycoL 3350 17 GM POWD.PACK PO SCH (09:03)
[2019-12-28] MEDS: NICOTINE 21MG/24HR PATCH TRANSDERM SCH (09:03)
--- NOTE | 2019-12-28 10:26 | P.PN ---
Subjective Progress Note Date: 12/28/19 Principal diagnosis: Diagnosis: Brief psychotic disorder Subjective: The patient says that ""I'm crazy I'm crazy my life is over" for example is wearing a plastic see-through facemask and she believed that the headband was broadcasting to her and reading her mind. She also wanted me to take off my name tag with my picture because it look like someone named Imtiaz and that was really bothering her. She kept asking me whether I really was Imtiaz or not. She has made a promise that I really am a doctor not realizing how irrational it is because of I'm lying and when Erica and Dr. prater family doctor with family doctor. She looks out the window and sees people moving around and feels like she is controlling them with her mind but sometimes they don't do what she wanted them to because they're trying to get back at her. Objective the patient was curled up on the couch in group weeping and disrupting the group. Her boundaries are poor she has on a hospital gown which she has not tied properly and as far as I can tell nothing underneath. She admits that she smells bad and asked if she could take a shower before I saw her but then did not go and take a shower she is obviously agitated so I tried talking with her walking up and down the then she asked if she could sit down then was too restless to sit down. She is alert no signs of dizziness and she says she had not been drinking fluids properly when she felt dizzy yesterday. Assessment plan: Patient is quite psychotic and need to increase the Seroquel were trying to find a dose that works give it time to work that doesn't make her too dizzy only went to 200 when I heard that she had been unsteady but I think it was from her poor fluid intake night will go to 300 and if she isn't doing a lot better by Tuesday and isn't too lethargic or dizzy we may have to increase it further. The patient definitely unable to process reality is terrified emotionally labile and requires continued hospitalization Objective - Vital Signs Vital signs: Vital Signs Temp 97.9 F 12/28/19 01:11 Pulse 62 12/28/19 01:11 Resp 14 12/28/19 01:11 BP 116/78 12/28/19 01:11 Pulse Ox 98 12/28/19 01:11 - Labs CBC & Chem 7: 12/24/19 08:51 12/25/19 09:06
[2019-12-28] MEDS: LORazepam 1 MG TAB PO PRN (12:05)
[2019-12-28] MEDS: QUEtiapine 100 MG TAB PO SCH (20:32)
[2019-12-28] MEDS: MELATONIN 3 MG TABLET PO SCH (20:32)
[2019-12-29] MEDS: polyethylene glycoL 3350 17 GM POWD.PACK PO SCH (08:03)
[2019-12-29] MEDS: NICOTINE 21MG/24HR PATCH TRANSDERM SCH (08:03)
[2019-12-29] MEDS: CEPHALEXIN 250 MG CAP PO SCH ×3 (08:03→21:10)
--- NOTE | 2019-12-29 09:55 | P.PN ---
Progress Note - Text Progress Note Date: 12/29/19 Interval history: Patient was seen wandering the hallways and was directable and agreeable to s peak with sports book writer. Patient was initially resistant to speak with sports book writer and appeared to be upset visibly. She states that she feels that "nobody is helping me" and also spoke about her room being "dirty" all the time. She states that she has requested several times for somebody to clean her room however has not been clean. Patient claims that her mood is "pissed off" and was concrete and had poverty of content. She states that she was able sleep well last night. At this time patient denies any suicidal or homicidal ideations intent or plan. Denies any Auditory or visual hallucinations. Patient denies any side effects from the medications and has been compliant with meds. Mental status exam: General Appearance: Patient appears to be stated age is thin, alert, directable, and uncooperative. Wearing street clothing. Behavior: No agitated behavior. Patient is calm and directable and uncooperative. Speech: Patient's speech is fluent and nonpressured. Mood/Affect: Mood is "pissed off", affect is congruent and upset Suicidality/Homicidality: Patient denies having any suicidal or homicidal ideation intent or plan. Perceptions: Patient denies any auditory or visual hallucinations. Though content/process: Patient has persistent delusions of her room being dirty and perseverates on cleanliness. She was demanding and illogical. Memory and concentration: AOX3, grossly intact for the purposes of this session Judgment and insight: Poor Assessment/Plan: Continue with current diagnosis. Patient continues to meet criteria for inpatient psychiatric admission for symptom stabilization and safety.Patient will be maintained on current psychotropic medication regimen, with the exception of adding a daytime dose of Seroquel 25 mg. Monitor for medication compliance and for any psychotropic medication side effects. Will continue to monitor ongoing response to treatment. Encouraged participation in milieu.
[2019-12-29] MEDS: QUEtiapine 25 MG TAB PO SCH (10:49)
[2019-12-29] MEDS: QUEtiapine 100 MG TAB PO SCH (21:10)
[2019-12-29] MEDS: MELATONIN 3 MG TABLET PO SCH (21:10)
[2019-12-30] MEDS: CEPHALEXIN 250 MG CAP PO SCH ×3 (07:29→20:17)
[2019-12-30] MEDS: QUEtiapine 25 MG TAB PO SCH (07:29)
[2019-12-30] MEDS: polyethylene glycoL 3350 17 GM POWD.PACK PO SCH (07:30)
[2019-12-30] MEDS: NICOTINE 21MG/24HR PATCH TRANSDERM SCH (07:30)
[2019-12-30] MEDS: ZIPRASIDONE 20 MG VIAL IM PRN (08:36)
[2019-12-30] MEDS: LORazepam 2 MG/ML INJ IM PRN (08:36)
--- NOTE | 2019-12-30 11:05 | P.PN ---
Progress Note - Text Progress Note Date: 12/30/19 Interval history: Patient was seen laying down in her bed this morning and was agreeable to speak to short story writer briefly. Patient denied any complaints and states that she is feeling sleepy today. She claims that she was feeling that a "man was looking at me" and explained that this has been going on for several days. She continued to endorse paranoia and loosely formed delusions. When patient was asked about the incident which occurred earlier this morning when she took her shirt off in fr ont of a male patient on the unit, patient states that "my mind was all over the place" and did not recall what she was doing. She denied any problems with her mood and states that "it's fine". She states that she was able sleep well last night. At this time patient denies any suicidal or homicidal ideations intent or plan. Denies any Auditory or visual hallucinations. Patient denies any side e ffects from the medications and has been compliant with meds. Mental status exam: General Appearance: Patient appears to be stated age is thin, alert, directable, and uncooperative. Wearing street clothing. Behavior: No agitated behavior. Patient is calm and directable and uncooperative. Paranoid. Speech: Patient's speech is fluent and nonpressured. Mood/Affect: Mood is "it's fine", affect is congruent and constricted Suicidality/Homicidality: Patient denies having any suicidal or homicidal ideation intent or plan. Perceptions: Patient denies any auditory or visual hallucinations. Though content/process: Patient has persistent delusions, loosely formed. She was demanding and illogical. Memory and concentration: AOX3, grossly intact for the purposes of this session Judgment and insight: Poor Assessment/Plan: Continue with current diagnosis. Patient continues to meet criteria for inpatient psychiatric admission for symptom stabilization and safety.Patient will be maintained on current psychotropic medication regimen. Monitor for medication compliance and for any psychotropic medication side effects. Will continue to monitor ongoing response to treatment. Encouraged participation in milieu.
[2019-12-30] MEDS: MELATONIN 3 MG TABLET PO SCH (20:17)
[2019-12-30] MEDS: QUEtiapine 100 MG TAB PO SCH (20:17)
[2019-12-31] MEDS: polyethylene glycoL 3350 17 GM POWD.PACK PO SCH (08:59)
[2019-12-31] MEDS: NICOTINE 21MG/24HR PATCH TRANSDERM SCH (08:59)
[2019-12-31] MEDS: QUEtiapine 25 MG TAB PO SCH (09:00)
[2019-12-31] MEDS: CEPHALEXIN 250 MG CAP PO SCH ×2 (09:00→09:02)
--- NOTE | 2019-12-31 10:25 | P.PN ---
Subjective Progress Note Date: 12/31/19 Principal diagnosis: Diagnosis: Brief psychotic disorder Subjective: The patient started off by saying, "I just can't stand looking at people because I'm delusional and I twist faces into looking like people I've known before. 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 She says she slept well and that is recorded by the staff. Objective: Vital signs temperature 90.8 heart rate 87 respiration 18 blood pressure 125/71 O2 sat is 98 Labs nothing new Groups: The patient comes in and out of group talks softly but does interact with peers and staff well. She does go the last 2 groups but was not attending prior to that. Staff observation: The patient is up in the halls saying the nurses are not nurses boundaries are terrible she took her shirt off in the in front of a male peer she was seen is illogical vague concrete no insight Mental status exam when I came to get the patient she was in group with her chair facing away from everybody staring into the TV because she can't stand to look at people's faces. She is tense no insight does not seem to be hearing voices. She is not eating well and blames that on the depression denies any thoughts at the food might be poisoned. Assessment plan I don't think she is being fully honest with us in the psychosis is still strong. She needs increased dose of antipsychotic and more time for kick in still remains a danger to self and others due to her fear Objective - Vital Signs Vital signs: Vital Signs Temp 98 F 12/31/19 06:34 Pulse 87 12/31/19 06:34 Resp 18 12/31/19 06:34 BP 125/71 12/31/19 06:34 Pulse Ox 98 12/31/19 06:34 Intake & Output 12/30/19 12/31/19 12/31/19 18:59 06:59 18:59 Weight 49.7 kg - Labs CBC & Chem 7: 12/24/19 08:51 12/25/19 09:06
[2019-12-31] MEDS: MELATONIN 3 MG TABLET PO SCH (22:15)
[2019-12-31] MEDS: QUEtiapine 100 MG TAB PO SCH (22:15)
[2020-01-01] MEDS: MELATONIN 3 MG TABLET PO SCH ×2 (02:40→21:14)
[2020-01-01] MEDS: NICOTINE 21MG/24HR PATCH TRANSDERM SCH (08:57)
[2020-01-01] MEDS: polyethylene glycoL 3350 17 GM POWD.PACK PO SCH (08:58)
[2020-01-01] MEDS: ZIPRASIDONE 20 MG VIAL IM PRN (12:21)
--- NOTE | 2020-01-01 12:23 | P.PN ---
Subjective Progress Note Date: 01/01/20 Principal diagnosis: Diagnosis: Brief psychotic disorder Subjective: The patient was seen twice the first for a regular medical check in interview and then because she insisted on coming in again demanding to be let out because I wasn't a real doctor. When I pointed out that if I wasn't a real doctor then I would not be able to let her out, then she said well you are the real doctor so let me out. She took medicine until last night and she refuses the Seroquel I think she has some mild benefit from the Seroquel she had been taking. Because she said that when she looks out the window she no longer feels like she controls the traffic and when she looks in the TV the people there are not talking about her trying to mess with her. However she has a another test, I need another test. Interestingly when she came back in my office, banging on the door a couple of hours later she says I no longer need the test I'm fine just let me out of here. She did complain of constipation because she has not been eating well Objective she is pressured and rambling. The fact that she has dropped some of her psychotic foci his pride just because her psychotic focus fluctuates from one thing to another not because she is doing that much better but without medication she will not improve and she will remain a danger to herself and others. So she does not take the medicine will have to go to court and get her committed I will fill out a CERT in that direction Vital signs temperature 98.0 heart rate 85 respirations 16 blood pressure 125/58 and O2 is 99 Labs: Nothing new Group: While in group, the patient demonstrated lack of boundaries she thought that peers were other people and was constant distracting them from the tasks of the group and had to be asked to leave. She was seen as irritable intrusive resistant loose associations restless hyperverbal and labile mood. This is when she goes to group most the time she does not bother. She spends her time trying to get really close to other male patients on the unit. The patient did not sleep well last night Assessment plan: The patient is quite psychotic and a danger to herself and others as a result she needs to take her medications but is refusing we will need to take her to court so we can give her her medication. I'm going to start some Metamucil for constipation Objective - Vital Signs Vital signs: Vital Signs Temp 98.0 F 01/01/20 06:04 Pulse 85 01/01/20 06:04 Resp 16 01/01/20 06:04 BP 125/58 01/01/20 06:04 Pulse Ox 99 01/01/20 06:04 - Labs CBC & Chem 7: 12/24/19 08:51 12/25/19 09:06
[2020-01-01] MEDS: QUEtiapine 100 MG TAB PO SCH (21:13)
[2020-01-01] MEDS: PSYLLIUM HUSK 100% 6 GM PACKET PO SCH (21:13)
[2020-01-01] MEDS: IBUPROFEN 200 MG TAB PO PRN (23:06)
[2020-01-02] MEDS: LORazepam 1 MG TAB PO PRN ×2 (00:15→23:26)
[2020-01-02] MEDS: NICOTINE 21MG/24HR PATCH TRANSDERM SCH (09:49)
[2020-01-02] MEDS: polyethylene glycoL 3350 17 GM POWD.PACK PO SCH (09:49)
[2020-01-02] MEDS: PSYLLIUM HUSK 100% 6 GM PACKET PO SCH ×2 (09:49→21:39)
--- NOTE | 2020-01-02 10:08 | P.PN ---
Subjective Progress Note Date: 01/02/20 Principal diagnosis: Diagnosis: Brief psychotic disorder Subjective: The patient reports a sense that there is a fetus growing large within her. She struggles between part of her knowing this makes no sense and part of her feeling up with the just get a test should be fine. However she seems to understand that if he did get the test was negative that they really would not help because she would decide the test was no good or move onto another bizarre focus. She says that the medicines do make her really sleepy in the morning. But she did take her Seroquel last night. She says that she was too paranoid last night to eat so although they tried to g heike her Metamucil could she is constipated she couldn't get it down Objective vital signs: Temperature 97.5 heart rate 92 respiration 14 blood pressure 130/65 The MAR says she did get her 300 of Seroquel and last night Labs: Nothing new Group report: She did come to the 3:30 group stayed for a little over half and are walking in and out but attentive compliant verbal with staff and peers restless Staff report that the patient is anxious attention seeking complaining irritable suspicious withdrawn delusional disorganized and illogical paranoid Mental status: The patient was lying in her room with the light off at about 10 in the morning she aroused up and talk with me she had a lot of family pictures spread out on the floor but said I wish check up with them on the wall so there was nothing bizarre about that. Her delusional system seem to shift from one focus to another and then grow so that her focus on needing a test is now grown to, I feel a baby growing inside of me The patient got quite agitated yesterday at noon and required Geodon she was loud and threatening staff believe the staff was trying to kill her, she took a male peer into her room and would not open the door for the staff. However after getting the Geodon she calmed down and was willing to take her Seroquel Assessment: Still delusional but calmer today and sleepy from the Seroquel will try to increase it tomorrow if she is still delusional and not too sleepy. Objective - Vital Signs Vital signs: Vital Signs Temp 97.5 F L 01/02/20 00:47 Pulse 92 01/02/20 00:47 Resp 14 01/02/20 00:47 BP 130/65 01/02/20 00:47 Pulse Ox 99 01/01/20 06:04 - Labs CBC & Chem 7: 12/24/19 08:51 12/25/19 09:06
[2020-01-02] MEDS: MELATONIN 3 MG TABLET PO SCH (21:39)
[2020-01-02] MEDS: QUEtiapine 100 MG TAB PO SCH (21:39)
--- NOTE | 2020-01-03 09:23 | P.PN ---
Subjective Progress Note Date: 01/03/20 Principal diagnosis: Diagnosis: Brief psychotic disorder Subjective: The patient reports that she is a little drowsy but not severely but does not want to increase the medication hoping that this will work without having to go up up. She says people on the TV is still talking to her and she is still fighting the preoccupation with the thought that she needs it test and with other peoples faces changing where they're not who they say they are. She says is quite uncomfortable. And that she is feeling sad as she tries to except the fact that she actually does need medication. Objective: Vital signs temperature 97.5 heart rate 109 respirations 16 blood pressure 132/69 Medication is 300 of Seroquel which she said for 2 nights in a row Labs: Nothing new Group report. 18 group at 2:30 yesterday she attended the left early and then came back doesn't interact much with the other peers pays reasonable attention and was drowsy and vague Staff report that the patient is withdrawn speaks softly but is more cooperative and redirectable yesterday and denied any suicidal thoughts Mental status exam the patient is alert gait is normal she is cold wearing a blanket walking down the but does not look excessively drowsy from the medication no clear evidence of psychosis she did not vacillate as to whether I was or was not Dr. Burch her affect was sad psychomotor activity down somewhat Patient appears somewhat depressed I think is because she is accepting the fact that she has a psychotic disorder. To 300 of Seroquel does take some time to kick in and could still be the right dose for her and she would rather go to the lowest dose that works for side effects to be minimal. The staff and I see some improvements I think we can leave the Seroquel at 300 if she isn't significantly better by Tuesday we will increase to 400 Objective - Vital Signs Vital signs: Vital Signs Temp 97.5 F L 01/03/20 06:28 Pulse 109 H 01/03/20 06:28 Resp 16 01/03/20 06:28 BP 132/69 01/03/20 06:28 Pulse Ox 96 01/02/20 23:15 - Labs CBC & Chem 7: 12/24/19 08:51 12/25/19 09:06
[2020-01-03] MEDS: polyethylene glycoL 3350 17 GM POWD.PACK PO SCH (09:57)
[2020-01-03] MEDS: NICOTINE 21MG/24HR PATCH TRANSDERM SCH (09:57)
[2020-01-03] MEDS: PSYLLIUM HUSK 100% 6 GM PACKET PO SCH ×2 (09:57→20:37)
[2020-01-03] MEDS: MELATONIN 3 MG TABLET PO SCH (20:38)
[2020-01-03] MEDS: QUEtiapine 100 MG TAB PO SCH (20:38)
[2020-01-03] MEDS: LORazepam 1 MG TAB PO PRN (20:39)
[2020-01-04] MEDS: NICOTINE 21MG/24HR PATCH TRANSDERM SCH ×2 (09:12→09:15)
[2020-01-04] MEDS: polyethylene glycoL 3350 17 GM POWD.PACK PO SCH ×2 (09:12→09:15)
[2020-01-04] MEDS: PSYLLIUM HUSK 100% 6 GM PACKET PO SCH ×3 (09:12→21:09)
--- NOTE | 2020-01-04 10:00 | P.PN ---
Subjective Progress Note Date: 01/04/20 Principal diagnosis: Diagnosis: Brief psychotic disorder Subjective: The patient says that her psychotic symptoms of clear.(This could be because she wants to be discharged and believes she needs to say that she has no symptoms be discharged) however she does say that she feels depressed although not suicidal. Objective: The patient did take her Seroquel for the third night in a row so is possible her claim that the psychotic symptoms have cleared up his true. However she is lying in her room with the light off it 9:30 in the morning in a position opened her eyes to look at me no psychomotor activity though is lying there is still. She said I just want to go home but yes I'm depressed just not suicidal she claimed however that the TV don't longer talks to her peoples had still looks strange. She claims though that she is throwing up all the time and cannot keep any food down. Should be noted that this was a problem even before she was started on medications. And she prior has a strong anorexic component to her illness. Vital signs temperature is 90.8 for heart rate is 99 which has been coming down last couple days that she's been taking her medicine on the it was 165 and 134 yesterday 109 and now is 99. Respiratory rate 16 that has come down from 24. Blood pressure is 122/71 which is down from 135/80 room air is 99. The patient does seem to be calming down Labs: Nothing for several days Groups: The patient goes to groups wanders in and out's tearful labile but compliant talks well with staff but not much with peers which is a huge shift from her drinking guys into her bedroom Staff report she is good at taking care of hygiene, says she is sad because she been here so long he was compliant and cooperative withdrawn vague lacking in insight but oriented to person place time and circumstance. Mental status exam she is not tearful but is lying in a position in a dark room and did not want to get up and come talk to me saying she was too tired. She never has any signs that she seems be responding to voices and she said that her frightening delusions have cleared up psychomotor activity is down she is oriented responses fit the question although they're brief. Assessment patient is shifted from being psychotic to depressed about being here and perhaps even depressed about the fact that she has been psychotic. His s he's given up arguing that her delusions are true she has to face the fact that they were delusions Plan the difficulty is now that the psychosis seems to have cleared now she is too depressed to function but not an active danger to self or others if I were to add an antidepressant would stir up the delusions again. The patient needs to be urged to stay out of her room and has been going to groups. We prior need to set a date like Tuesday for discharge for the patient to focus on and make sure she has good support issue prior still be depressed for some time after discharge Objective - Vital Signs Vital signs: Vital Signs Temp 98.4 F 01/04/20 06:51 Pulse 99 01/04/20 06:51 Resp 16 01/04/20 06:51 BP 122/71 01/04/20 06:51 Pulse Ox 99 01/04/20 06:51 - Labs CBC & Chem 7: 12/24/19 08:51 12/25/19 09:06
[2020-01-04] MEDS: LORazepam 1 MG TAB PO PRN (16:59)
[2020-01-04] MEDS: QUEtiapine 100 MG TAB PO SCH (21:09)
[2020-01-04] MEDS: MELATONIN 3 MG TABLET PO SCH (21:09)
[2020-01-05] MEDS: NICOTINE 21MG/24HR PATCH TRANSDERM SCH (08:56)
[2020-01-05] MEDS: polyethylene glycoL 3350 17 GM POWD.PACK PO SCH (08:57)
[2020-01-05] MEDS: PSYLLIUM HUSK 100% 6 GM PACKET PO SCH ×2 (08:57→21:46)
--- NOTE | 2020-01-05 18:37 | PN ---
PROGRESS NOTE DATE OF SERVICE: 01/05/2020. CHIEF COMPLAINT: The patient had delusions that she was being followed, monitored and threatened by others including her mother. She had dangerous and disorganized behavior. INTERVAL HISTORY: The patient continues to be quite distressed. She is noted to have primarily psychotic symptoms, though as per Dr. Burch's note of yesterday, psychotic symptoms seem to be lessening whereas the patient has been more noting depression. She had a quiet evening last night. Staff noted that her mood and function seems to be up and down. She attended one group yesterday. Staff note that there may be times where she can have a limited though somewhat interactive conversation and then at other times she seems to be quite shutdown where she can hardly get a word out. She had been complaining about nausea and vomiting, though staff had not seeing any indication that she has been vomiting. I asked her to be sure to have them come to her room if this occurs again. She slept fairly well last night. Today she has been up. She continues about the same. She attended one group. It was documented that "patient was tearful and repeatedly stated that she did not want to and wants to go home. The patient reported her family being a good support." When I talked to the patient, she could barely get a word out. She just had a staring gaze much of the time. She would nod when I reviewed the notes from previous days. She did not give much indication one way or another as to whether the information was accurate and in that mood issues were her main problem. When I noted that she had thoughts of the TV talking to her and there were other conspiracy, she seemed to acknowledge that those thoughts continue. She was vague about whether or not she had auditory hallucinations. She tolerates her psychotropic medications. MENTAL STATUS EXAM: Patient sat in a very stiff posture. She had a staring gaze most of the time. She would answer only a few questions though verbally for the first half of the interview. She only shook her head, though barely moved her head at all either in a yes, no, or either with yes, no movements. As the interview went on, she was able to say a few words, but typically would only say 1 or 2 words at the most at any time. She seemed to respond appropriately to all the questions. Her affect was intense. She had a very rigid tense manner. Her mood was depressed. She was significantly distressed. She appears to continue to have significant thought disorder. It is noted that she made a few odd and disconnected comments such as "Am I going to ." Statements did not seem to be connected to anything else in the interview. She moved in a very slow manner. There was latency in her response. She appeared to continue to struggle with psychotic symptoms including delusions. It was difficult to assess risk for harm. She appeared oriented to circumstances. ASSESSMENT: I will continue the current diagnosis. The patient appears to be showing continuous psychotic symptoms while she has significant difficulty with communications, staff seemed to indicate that this waxes and wanes. Whether or not this is suggesting catatonia remains to be seen. I will increase the patient's Seroquel to 400 mg at bedtime for continued psychotic symptoms. I briefly talked with the patient about her medications, though it did not appear she was able to follow much of the discussion, so I kept it limited. We will focus on stabilization and discharge planning. BONG / ROSITA: [id number] /
[2020-01-05] MEDS: ZIPRASIDONE 20 MG VIAL IM PRN (21:23)
[2020-01-05] MEDS: QUEtiapine 200 MG TAB PO SCH (21:47)
[2020-01-05] MEDS: MELATONIN 3 MG TABLET PO SCH (21:47)
[2020-01-06] MEDS: PSYLLIUM HUSK 100% 6 GM PACKET PO SCH ×2 (09:34→21:14)
[2020-01-06] MEDS: NICOTINE 21MG/24HR PATCH TRANSDERM SCH (09:34)
[2020-01-06] MEDS: polyethylene glycoL 3350 17 GM POWD.PACK PO SCH (09:34)
--- NOTE | 2020-01-06 13:08 | PN ---
PROGRESS NOTE DATE OF SERVICE: 01/06/2020. CHIEF COMPLAINT: The patient had delusions that she was being followed, monitored and threatened by others including her mother. She had dangerous and disorganized behavior. INTERVAL HISTORY: The patient is showing some signs of improvement. She had a quiet evening last night. She did attend 2 groups yesterday. She tends to keep to herself. She will come out on the unit. She will interact a little with others. It is noted that in fact she does seem to show a little more emotional responsiveness to others in an appropriate way. She slept fairly well last night. Today she has been up. She continues to show some improvement. She has a calmer manner. She is showing a little broader range of emotions. She seems clearer in her thoughts and is a little more responsive in the interview. She tolerates her psychotropic medications. MENTAL STATUS: Patient walked into the room with a fairly relaxed gait and fluid movement. She gave good eye contact, though at times she did seem to have a staring gaze. She sat in a somewhat rigid posture, though she did not present in a tense way. She answered questions appropriately. She did not say a lot though she responded directly to questions with brief answers. It was noteworthy she said, "thank you" many times through the interview. Her affect was somewhat constricted though it is noted that she smiled more. She had a more relaxed manner. She showed more emotional responsiveness. Her mood was reserved though not clearly down or depressed. She did not appear to be significantly distressed. There was no indication of thought disorder. She voiced no thoughts of harm. Cognition was clear. ASSESSMENT: I will continue the current diagnosis and treatment plan. We will continue psychotropic medications the same. Patient has been making progress. She is showing clear improvement in her mood and manner. She talked to some extent about discharge planning issues and what she would do for followup. 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 Noted she lives at home with her mother, father and 5 siblings. We will coordinate with outpatient resources for followup care. We will focus on stabilization and discharge planning. I anticipate the patient being discharged sometime this week. MMSAIGE / DEZN: [id number] /
[2020-01-06] MEDS: MELATONIN 3 MG TABLET PO SCH (21:04)
[2020-01-06] MEDS: QUEtiapine 200 MG TAB PO SCH (21:04)
[2020-01-07] MEDS: polyethylene glycoL 3350 17 GM POWD.PACK PO SCH (08:54)
[2020-01-07] MEDS: PSYLLIUM HUSK 100% 6 GM PACKET PO SCH ×2 (08:54→21:33)
[2020-01-07] MEDS: NICOTINE 21MG/24HR PATCH TRANSDERM SCH (08:58)
[2020-01-07 11:06] VITALS: BMI 17.2
--- NOTE | 2020-01-07 11:51 | P.PN ---
Subjective Progress Note Date: 01/07/20 Principal diagnosis: Diagnosis: Schizophrenic disorder Subjective: The patient came in talk to me seemed calm serious denied any psychotic symptoms she still had some, what seemed to be mild I know things aren't real but they seem real. She denies seeing peoples faces change her A1 the TV talking to her feeling like she could control people with her mind physical sleepy on the medication but not badly so has not been throwing up however she calling her mom over the weekend saying that we were going to shave her hair off. And that they her family were all plotting against her. Objective: Vital signs 97 8 heart rate 16 blood pressure 116/65 : Labs nothing new On 8:15 the patient was loud yelling jumping in the hallways screaming inappropriate sexual comments at a male peer and couldn't be redirected that was Tuesday night the night before she had inappropriate boundaries with male peer but responded well to being redirected. Assessment: If the patient stayed with her parents and they did not let her drive at least for the near future to occur medicine faithfully and had a day hospital and go to she probably could be discharged but there is no day hospital she can't get up all appointment at the [facility] for a week we'll probably stop her medicine and find reasons to not stay with her mom and her dad due to the shifting paranoia. She has been taking 400 his Seroquel but sometimes it just takes a week or so for this to clear the psychosis that may increase to 500 and we'll probably need another day or 2 and check with the family to see what she is saying to them because she is putting on a decent show here and denying reality Objective - Vital Signs Vital signs: Vital Signs Temp 97.8 F 01/07/20 06:28 Pulse 78 01/06/20 06:00 Resp 16 01/07/20 06:28 BP 116/65 01/07/20 06:28 Pulse Ox 99 01/06/20 06:00 Intake & Output 01/06/20 01/07/20 01/07/20 18:59 06:59 18:59 Weight 48.5 kg 48.5 kg - Labs CBC & Chem 7: 12/24/19 08:51 12/25/19 09:06
[2020-01-07] MEDS: MAGNESIUM HYDROXIDE 2,400 MG/10 ML CUP PO PRN (15:02)
[2020-01-07] MEDS: MELATONIN 3 MG TABLET PO SCH (21:33)
[2020-01-07] MEDS: QUEtiapine 200 MG TAB PO SCH (21:35)
[2020-01-08] MEDS: polyethylene glycoL 3350 17 GM POWD.PACK PO SCH (08:20)
[2020-01-08] MEDS: PSYLLIUM HUSK 100% 6 GM PACKET PO SCH ×2 (08:20→22:10)
[2020-01-08] MEDS: NICOTINE 21MG/24HR PATCH TRANSDERM SCH (08:20)
[2020-01-08] MEDS: LORazepam 2 MG/ML INJ IM PRN (16:10)
[2020-01-08] MEDS: ZIPRASIDONE 20 MG VIAL IM PRN (16:10)
[2020-01-08] MEDS: QUEtiapine 200 MG TAB PO SCH (22:10)
[2020-01-08] MEDS: MELATONIN 3 MG TABLET PO SCH (22:10)
--- NOTE | 2020-01-09 09:41 | P.PN ---
Subjective Progress Note Date: 01/08/20 Principal diagnosis: Diagnosis: Schizophrenic disorder Subjective: Patient denies suicidality but the voices make her feel like she might but she is vague as to how that would happen Objective: Nursing report last night at about 5 PM patient said that she had thoughts and her head that she is here in the hospital to . She says that people's faces are still changing and she is hearing voices. The patient withdrawn from peers which is a fluctuating thing She goes to groups but is withdrawn from peers and leaves early. She has no insight into the reality of her psychosis and its potential danger. So she thinks being here is causing all the trouble so she just got home should be fine. Vital signs: Temperature is 98.1 heart rate 71 respirations 16 blood pressure 119/70 Labs: Nothing new Medications: The patient did not take her medications last night Assessment: Unless she takes a good solid dose of antipsychotic this is not going to clear. Thought check with the legal standing I believe she deferred. So we may have to have a backup often IM if she refuses her medication. Unless she takes her medicine daily it quits working rapidly Objective - Vital Signs Vital signs: Vital Signs Temp 98.1 F 01/08/20 06:46 Pulse 71 01/08/20 06:46 Resp 16 01/08/20 06:46 BP 119/70 01/08/20 06:46 Pulse Ox 99 01/06/20 06:00 Intake & Output 01/07/20 01/08/20 01/08/20 18:59 06:59 18:59 Weight 48.5 kg - Labs CBC & Chem 7: 12/24/19 08:51 12/25/19 09:06
--- NOTE | 2020-01-09 09:45 | P.PN ---
Subjective Progress Note Date: 01/09/20 Principal diagnosis: Diagnosis: Schizophrenic disorder Subjective: The patient seems more subdued today. She says she did not take any medication last night and MAR suggests that his true she did not get her Seroquel I'm going to offer her the Abilify because it is less sedating and less constipating and has a fairly low incidence of tardive dyskinesia. Also if necessary we can give it in the long-acting form if she refuses that then we will have to go to court and see if we can get order to have her treat whether she wants to or not. She said that the constipation was somewhat better and she had a small bowel movement Objective vital signs temperature 98.1 heart rate 84 respirations 16 blood pressure 131/67 Labs nothing new Groups: The patient says she was angry yesterday so didn't go to more than one group but normally attends fairly well Staff assessment: The patient is taking care of basic ADLs is oriented to person place time and circumstance insight and judgment and focus are poor interacts with peers with poor boundaries Mental status exam: Patient has a sad affect good eye contact reasonable self- care gait and station are slow but normal she did not evidence any psychotic features but continues to experience them. Shows looks superficially fine when she begins to talk to realize that she has multiple psychotic fears and worries. This Assessment plan patient not doing well were going to begin the Abilify hopefully she tolerates that Objective - Vital Signs Vital signs: Vital Signs Temp 98.1 F 01/09/20 06:22 Pulse 84 01/09/20 06:22 Resp 16 01/09/20 06:22 BP 131/67 01/09/20 06:22 Pulse Ox 99 01/06/20 06:00 - Labs CBC & Chem 7: 12/24/19 08:51 12/25/19 09:06
[2020-01-09] MEDS: NICOTINE 21MG/24HR PATCH TRANSDERM SCH (09:49)
[2020-01-09] MEDS: polyethylene glycoL 3350 17 GM POWD.PACK PO SCH (09:50)
[2020-01-09] MEDS: SENNOSIDES 8.6 MG TAB PO PRN (09:50)
[2020-01-09] MEDS: ARIPiprazole 5 MG TAB PO SCH ×2 (09:50→20:36)
[2020-01-09] MEDS: PSYLLIUM HUSK 100% 6 GM PACKET PO SCH ×2 (09:50→20:56)
[2020-01-09 13:26] LABS: Glucose,Whole Blood 106 mg/dL (75-99)
[2020-01-09] MEDS: IBUPROFEN 200 MG TAB PO PRN (15:03)
[2020-01-09] MEDS: MELATONIN 3 MG TABLET PO SCH (20:36)
[2020-01-10] MEDS: NICOTINE 21MG/24HR PATCH TRANSDERM SCH (09:22)
[2020-01-10] MEDS: ARIPiprazole 5 MG TAB PO SCH (09:23)
[2020-01-10] MEDS: PSYLLIUM HUSK 100% 6 GM PACKET PO SCH ×2 (09:23→21:16)
[2020-01-10] MEDS: SENNOSIDES 8.6 MG TAB PO PRN (09:23)
[2020-01-10] MEDS: polyethylene glycoL 3350 17 GM POWD.PACK PO SCH (09:23)
--- NOTE | 2020-01-10 10:54 | P.PN ---
Subjective Progress Note Date: 01/10/20 Principal diagnosis: Diagnosis: Schizophrenic disorder Subjective: The patient has been going to groups but she finds him extremely uncomfortable because she feels like all the people in there are against her she says that she knows that I'm not Imtiaz but the things that she believes seem to fluctuate and trouble her.(Interestingly she called me by my first name now) she says she slept okay but her big concern is that she is not having bowel movements area Objective: In discussing with the nursing staff it's hard to tell whether the patient is having bowel movements are not is clear that she is not eating very well. She is getting her Metamucil and although she was paranoid as to what was in it. Vital signs: Temperature 98.9 heart rates 97 which is been gradually calming down respirations 16 blood pressure 105/62 Labs: She had a POC glucose done yesterday and it was slightly high at 106 Groups the patient did go to groups yesterday: And did well participating atte nding the full group talking with staff and somewhat with patients she seems more blunted and subdued probably from the medication. She was able to sleep during to staff fairly well last night Mental status exam: Patient self-care is minimal she continues to wear hospital gowns rather put on her own clothes she does bathe she came readily but is resigned, "how will I ever get out of here? " Eye contact is minimal response times somewhat slow no aggression no tearfulness no agitation no signs of reacting to voices but she continues to have the delusions that are frightening. Assessment: She seems to be slowing down and finally hopefully she will respond to the Abilify better than she did to her previous antipsychotic I'm going to increase to 5 in the morning and 10 at night Objective - Vital Signs Vital signs: Vital Signs Temp 98.9 F 01/10/20 06:15 Pulse 97 01/10/20 06:15 Resp 16 01/10/20 06:15 BP 105/62 01/10/20 06:15 Pulse Ox 99 01/06/20 06:00 - Labs CBC & Chem 7: 12/24/19 08:51 12/25/19 09:06 Labs: Abnormal Lab Results - Last 24 Hours (Table) 01/09/20 Range/Units 13:13 POC Glucose (mg/dL) 106 H (75-99) mg/dL
[2020-01-10] MEDS: ARIPiprazole 10 MG TAB PO SCH (20:55)
[2020-01-10] MEDS: MELATONIN 3 MG TABLET PO SCH (20:55)
[2020-01-11] MEDS: ARIPiprazole 5 MG TAB PO SCH (08:57)
[2020-01-11] MEDS: polyethylene glycoL 3350 17 GM POWD.PACK PO SCH (08:58)
[2020-01-11] MEDS: PSYLLIUM HUSK 100% 6 GM PACKET PO SCH ×2 (08:58→22:05)
[2020-01-11] MEDS: NICOTINE 21MG/24HR PATCH TRANSDERM SCH (08:58)
--- NOTE | 2020-01-11 09:40 | P.PN ---
Subjective Progress Note Date: 01/11/20 Principal diagnosis: Diagnosis: Schizophrenic disorder Subjective: Patient says she slept reasonably well up and down a little bit. She gets preoccupied with somatic concerns and wants a "real doctor "to come and check. Even her concern with constipation. Patient does need that much she is encouraged to eat well and take her anti-constipation medicines. Objective: Vital signs temperature 98.6 heart rate 94 respiration 18 blood pressure 129/77 Labs: Nothing new Group report: She does not attend all groups when she goes she was noted to be bright spontaneous attentive compliant initiating interaction with peers and staff somewhat restless and left early in one of the groups she was delusional about arise saying "I don't want my eyes to get bigger I don't want to lose my vision that's the last thing I want to happen they are changing sizes can't you see?" The patient was redirectable and they were able to calm her down but she seems to jump from one delusional fear to another Staff report that the patient is somatically preoccupied and paranoid she complains she is constipated but when given medicine for constipation she doesn't want to take it once to see the wrappers wants to talk to a doctor about the medications even though she already has. Her boundaries are poor she was a phone trejo with another patient and look like she was trying to kiss it. Then she complains at this other patient won't leave her alone. Medications: The patient is on Abilify 5 in the morning and 10 at night which is a strong dose for someone her size and age. She did not require Ativan or when necessary Mark Garcia talked to her mother who said that yesterday she called the mother 10 times in the first 3 times said if you don't get me out of here I'll have to bash my head against the wall. Her father pointed out to her that that's a good way to keep yourself in longer. Assessment plan it takes some time for the Abilify to work she seems somewhat calmer but still way to impulsive to function at home we will try not to get rid of all of the delusions but if she can get to where she can ignore them and be redirectable and her anxiety is moderate we can look to discharge hopefully by Tuesday. Objective - Vital Signs Vital signs: Vital Signs Temp 98.6 F 01/11/20 06:58 Pulse 94 01/11/20 06:58 Resp 18 01/11/20 06:58 BP 129/77 01/11/20 06:58 Pulse Ox 99 01/11/20 06:58 - Labs CBC & Chem 7: 12/24/19 08:51 12/25/19 09:06
[2020-01-11] MEDS: ARIPiprazole 10 MG TAB PO SCH (21:01)
[2020-01-11] MEDS: MELATONIN 3 MG TABLET PO SCH (21:01)
[2020-01-12] MEDS: MAGNESIUM HYDROXIDE 2,400 MG/10 ML CUP PO PRN (00:32)
--- NOTE | 2020-01-12 08:36 | P.PN ---
Subjective Progress Note Date: 01/12/20 Principal diagnosis: Diagnosis: Schizophrenic disorder Subjective: The patient says that she is doing better at being redirectable and letting go of her concerns that she slept reasonably well as she lies her thinking I wish I was at home and has little trouble falling asleep and yet is somewhat sleepy during the day. Objective: Serious affect good eye contact gait and station are normal cooperative no arguing about how the things she believes are actually true has been pushing herself to go to groups and participate a little she does occasionally get talking about being and other delusional foci. Vital signs temperature 90.8 heart rate 97 respirations 16 blood pressure 127/86 Labs during new Assessment she seems to be calming down and working harder at staying in the present. If she is able to continue to be calm and stable will look for discharge on Tuesday and a move all of her Abilify to the evening starting tomorrow Objective - Vital Signs Vital signs: Vital Signs Temp 98.0 F 01/12/20 04:49 Pulse 97 01/12/20 04:49 Resp 16 01/12/20 04:49 BP 127/86 01/12/20 04:49 Pulse Ox 99 01/11/20 06:58 - Labs CBC & Chem 7: 12/24/19 08:51 12/25/19 09:06
[2020-01-12] MEDS: polyethylene glycoL 3350 17 GM POWD.PACK PO SCH (11:46)
[2020-01-12] MEDS: PSYLLIUM HUSK 100% 6 GM PACKET PO SCH ×2 (11:47→20:42)
[2020-01-12] MEDS: NICOTINE 21MG/24HR PATCH TRANSDERM SCH (11:47)
[2020-01-12] MEDS: ARIPiprazole 15 MG TAB PO SCH (20:42)
[2020-01-12] MEDS: MELATONIN 3 MG TABLET PO SCH (20:42)
[2020-01-13] MEDS: PSYLLIUM HUSK 100% 6 GM PACKET PO SCH ×2 (09:28→21:28)
[2020-01-13] MEDS: NICOTINE 21MG/24HR PATCH TRANSDERM SCH (09:28)
[2020-01-13] MEDS: polyethylene glycoL 3350 17 GM POWD.PACK PO SCH (09:28)
--- NOTE | 2020-01-13 16:24 | P.PN ---
Subjective Progress Note Date: 01/13/20 Principal diagnosis: Diagnosis: Schizophrenic disorder Subjective: Patient says that her ability to know the difference between mom make sense and doesn't is much better even to the point where when I suggested she might not want to accuse her mother of being someone else she laughed realizing that was ludicrous. She says she is sleeping well and appetite is still a struggle but at somewhat better Objective: Vital signs temperature is 97.9 heart rate 67 respiration 16 blood pressure 130/72 O2 sat is 99 Labs nothing recent Group the patient went to 1 group today TAT group at 2:00 and although her affect was somewhat blunted she was alert cooperative attentive compliant and spoke well with peers and staff seems to be more circumspect as to who she hangs out with an intended the full group. She did not attend the other to groups however on went to talk to her she was in group at that time said that's a good sign. is that asked she was recorded to have slept a good 6 hours last night. Mental status exam: Serious affect excellent self care dressed in her street cl othes has been more active with to community while setting proper limits is able to plan for the future no evidence of responding to any kind of psychotic state are being driven by delusions Assessment patient seems to be stabilizing Plan: We are hoping for discharge tomorrow I'll contact mom and see what kind of interaction she is having with the patient over the weekend Objective - Vital Signs Vital signs: Vital Signs Temp 97.9 F 01/13/20 06:24 Pulse 67 01/13/20 06:24 Resp 16 01/13/20 06:24 BP 130/72 01/13/20 06:24 Pulse Ox 99 01/13/20 06:24 Intake & Output 01/12/20 01/13/20 01/13/20 18:59 06:59 18:59 Weight 49.4 kg - Labs CBC & Chem 7: 12/24/19 08:51 12/25/19 09:06
[2020-01-13] MEDS: ARIPiprazole 15 MG TAB PO SCH (21:28)
[2020-01-13] MEDS: MELATONIN 3 MG TABLET PO SCH (21:28)
[2020-01-14 06:03] VITALS: TEMP 98.4
[2020-01-14] MEDS: NICOTINE 21MG/24HR PATCH TRANSDERM SCH (09:16)
[2020-01-14] MEDS: polyethylene glycoL 3350 17 GM POWD.PACK PO SCH (09:16)
[2020-01-14] MEDS: PSYLLIUM HUSK 100% 6 GM PACKET PO SCH (09:16)
[2020-01-14] MEDS: SENNOSIDES 8.6 MG TAB PO PRN (09:17)
--- NOTE | 2020-01-14 11:36 | P.DS ---
Providers Date of admission: 12/24/19 01:51 Expected date of discharge: 01/14/20 Attending physician: Mio Burch MD Consults: 12/24/19 01:59 Consult Physician Routine Consulting Provider: Misael Valladares Consult Reason/Comments: For H & P for Medical Follow Up Do you want consulting provider notified?: Yes, Notify in am Primary care physician: Nicho Campuzano Hospital Course: This case of a 19-year-old single female admitted to the psychiatric unit on 12/23/2019 and discharged on 01/14 2020. Hospital course: The patient has improved to the point where I think she can function outpatient. In the beginning of her stay she had delusions and didn't realize there were delusions, then she had delusions and would say I know they're not true but I think they're true, then she would say I have these delusions but I know they're not true and stick with that in the last day or 2 she had been able to not bring up the delusional material ignore it and go to groups although it makes her very anxious and she was able to overcome that anxiety and do well in groups even though is difficult for her she is described is spontaneous attentive compliant interacting well with patients and staff.. Staff assessment of her current function is that she is calm composed even at times seems happy speech is appropriate although soft she is cooperative oriented to person place time and circumstance denies any hallucinations has some anxious preoccupations about somatic delusions but able to keep them to herself denies any suicidal or homicidal thoughts. She is sleeping reasonably well appetite is moderate but adequate Mental status exam: The patient has good eye contact serious somewhat sad affect willing to accept whatever verdict I give her but wanting to go home history she seemed happy at the thought of spending time with her sister. Gait and station are normal psychomotor activity somewhat decreased self-care is adequate response times are normal but her answers are fairly brief. No pressure no tearfulness no aggression she denies and does not evidence any responding to psychotic fears. The patient has above average intelligence and good abstract h umor which hopefully she will preserve by taking her medications and keeping the illness from damaging her cognition. Medications: Abilify 15 mg daily at bedtime and melatonin 3 mg daily at bedtime plus stool softeners Post discharge plan she has appointments for medication renewal and she special he needs counseling. She appears to be understandably depressed over coming to accept the fact that she has a psychotic illness and will need to take medications. I emphasized and she was able to repeat the fact that this is not an illness or completed around with without it being kindled into a worse illness. However the usual young person and requires 2 or 3 hospitalizations to really learn that lesson. I reviewed with her what she needs to do besides take medication to keep her brain is healthy as possible. She was able to repeat the information and try to figure out where she can put things such as exercise nutrition and developing relationships into her life Assessment: The patient has improved to the point where I think she can function outpatient. In the beginning of her stay she had delusions and didn't realize there were delusions, then she had delusions and would say I know they're not true but I think they're true, then she would say I have these delusions but I know they're not true and stick with that in the last day or 2 she had been able to not bring up the delusional material ignore it and go to groups although it makes her very anxious and overcome that anxiety.. Health Concerns: Providers Date of admission: 12/24/19 01:51 Expected date of discharge: 01/14/20 Attending physician: Mio Burch MD Consults: 12/24/19 01:59 Consult Physician Routine Consulting Provider: Misael Valladares Consult Reason/Comments: For H & P for Medical Follow Up Do you want consulting provider notified?: Yes, Notify in am Primary care physician: Nicho Campuzano Assessment: The patient has improved to the point where I think she can function outpatient. In the beginning of her stay she had delusions and didn't realize there were delusions, then she had delusions and would say I know they're not true but I think they're true, then she would say I have these delusions but I know they're not true and stick with that in the last day or 2 she had been able to not bring up the delusional material ignore it and go to groups although it makes her very anxious and she was able to overcome that anxiety and do well in groups even though is difficult for her she is described is spontaneous attentive compliant interacting well with patients and staff.. Staff assessment of her current function is that she is calm composed even at times seems happy speech is appropriate although soft she is cooperative oriented to person place time and circumstance denies any hallucinations has some anxious preoccupations about somatic delusions but able to keep them to herself denies any suicidal or homicidal thoughts. Mental status exam: The patient has good eye contact serious somewhat sad affect willing to accept whatever verdict I give her but wanting to go home history she seemed happy at the thought of spending time with her sister. Gait and station are normal psychomotor activity somewhat decreased self-care is adequate response times are normal but her answers are fairly brief. No pressure no tearfulness no aggression she denies and does not evidence any responding to psychotic fears. Patient Condition at Discharge: Fair Plan - Discharge Summary New Discharge Prescriptions: New Psyllium Husk 100% [Metamucil Packet] 6 gm PO BID #0 packet QUEtiapine [SEROquel] 400 mg PO HS 30 Days #30 tab ARIPiprazole [Abilify] 15 mg PO HS 30 Days #30 tab Continue Melatonin 3 mg PO HS Albuterol Nebulized [Ventolin Nebulized] 2.5 mg INHALATION Q4H #1 box Discontinued Ibuprofen [Advil] 200 mg PO Q8HR PRN PRN Reason: Pain Methylphenidate HCl [Methylphenidate ER] 72 mg PO DAILY Polyethylene Glycol 3350 [Miralax] 17 gm PO DAILY #527 gm Discharge Medication List Melatonin 3 mg PO HS 07/28/15 [History] Albuterol Nebulized [Ventolin Nebulized] 2.5 mg INHALATION Q4H #1 box 07/31/15 [Rx] Psyllium Husk 100% [Metamucil Packet] 6 gm PO BID #0 packet 01/07/20 [Rx] QUEtiapine [SEROquel] 400 mg PO HS 30 Days #30 tab 01/07/20 [Rx] ARIPiprazole [Abilify] 15 mg PO HS 30 Days #30 tab 01/14/20 [Rx] Follow up Appointment(s)/Referral(s): Nicho Campuzano MD [Primary Care Provider] - 1-2 days Patient Instructions/Handouts: Brief Psychotic Disorder (DC) Activity/Diet/Wound Care/Special Instructions: Activity and diet as tolerated. Avoid the use of street drugs and alcohol. Take all medications as prescribed. When you are in need of refills on your medications please contact your medical provider and/or outpatient psychiatrist to have this done. Please go to scheduled outpatient appointment for aftercare treatment. If symptoms return or become worse, call the crisis line at and/or go to the nearest emergency room for evaluation. My main concern is her nutrition she does not eat much and when she does it tends to be junk food I educated her on the supreme importance of eating nutritious substances and even treating food as if it is medication and take it with a you are all that hungry or not. Pertinent Studies: She had labs will she was in the hospital, hematology was fine, her sugars tended to run a little high and should be monitored as an outpatient somewhere between 106 and 121 HDL was slightly elevated which is fine Procedures: None Patient Condition at Discharge: Fair Plan - Discharge Summary New Discharge Prescriptions: New Psyllium Husk 100% [Metamucil Packet] 6 gm PO BID #0 packet QUEtiapine [SEROquel] 400 mg PO HS 30 Days #30 tab ARIPiprazole [Abilify] 15 mg PO HS 30 Days #30 tab Continue Melatonin 3 mg PO HS Albuterol Nebulized [Ventolin Nebulized] 2.5 mg INHALATION Q4H #1 box Discontinued Ibuprofen [Advil] 200 mg PO Q8HR PRN PRN Reason: Pain Methylphenidate HCl [Methylphenidate ER] 72 mg PO DAILY Polyethylene Glycol 3350 [Miralax] 17 gm PO DAILY #527 gm Discharge Medication List Melatonin 3 mg PO HS 07/28/15 [History] Albuterol Nebulized [Ventolin Nebulized] 2.5 mg INHALATION Q4H #1 box 07/31/15 [Rx] Psyllium Husk 100% [Metamucil Packet] 6 gm PO BID #0 packet 01/07/20 [Rx] QUEtiapine [SEROquel] 400 mg PO HS 30 Days #30 tab 01/07/20 [Rx] ARIPiprazole [Abilify] 15 mg PO HS 30 Days #30 tab 01/14/20 [Rx] Follow up Appointment(s)/Referral(s): Nicho Campuzano MD [Primary Care Provider] - 1-2 days Patient Instructions/Handouts: Brief Psychotic Disorder (DC) Activity/Diet/Wound Care/Special Instructions: Activity and diet as tolerated. Avoid the use of street drugs and alcohol. Take all medications as prescribed. When you are in need of refills on your medications please contact your medical provider and/or outpatient psychiatrist to have this done. Please go to scheduled outpatient appointment for aftercare treatment. If symptoms return or become worse, call the crisis line at [phone] and/or go to the nearest emergency room for evaluation.
[2020-01-14 13:13] VITALS: BP 130/91; PULSE 92; RESP 16
== END 2020-01-14 16:01 | disposition home or self-care (01) | DRG 885 ==
LOC: EC 23:19 → 3MHU 12-24 01:51
PROVIDERS: ADMIT Psychiatry & Neurology Psychiatry; ATTEND Psychiatry & Neurology Psychiatry
DX: F20.9 Schizophrenia, unspecified (principal); R45.851 Suicidal ideations; F90.9 Attention-deficit hyperactivity disorder, unspecified type; F32.9 Major depressive disorder, single episode, unspecified; F41.9 Anxiety disorder, unspecified; F12.90 Cannabis use, unspecified, uncomplicated; R11.2 Nausea with vomiting, unspecified; G47.9 Sleep disorder, unspecified; J45.909 Unspecified asthma, uncomplicated; K59.00 Constipation, unspecified; F17.290 Nicotine dependence, other tobacco product, uncomplicated; Z71.6 Tobacco abuse counseling; Z79.899 Other long term (current) drug therapy; Z86.39 Personal history of other endocrine, nutritional and metabolic disease; Z91.030 Bee allergy status; Z82.5 Family history of asthma and other chronic lower respiratory diseases; Z81.4 Family history of other substance abuse and dependence
CPT/HCPCS: 70450; 80048; 80053; 80061; 80306; 81001; 81025; 82075; 83036; 83735; 84443; 85025; 87086; 93005; 94640; 99285

== ENCOUNTER 2020-10-03 16:10 | Emergency (ER) | payer BC, OTHER ==
[2020-10-03 16:39] VITALS: RESP 18; TEMP 98.1
[2020-10-03] MEDS ORDERED: ONDANSETRON 4 MG/2 ML VIAL IVP STA (16:42)
[2020-10-03] MEDS ORDERED: SODIUM CHLORIDE 0.9% 1,000 ML IV STA (16:49)
--- NOTE | 2020-10-03 16:52 | ED ---
Nausea/Vomiting/Diarrhea HPI - General Chief complaint: Nausea/Vomiting/Diarrhea Stated complaint: Plan B pill side affects, vomiting Time Seen by Provider: 10/03/20 16:41 Source: patient, family, RN notes reviewed Mode of arrival: ambulatory - History of Present Illness Initial comments: Patient is a 20-year-old female that presents to emergency department with nausea and vomiting for 2 days. She notes that she took Plan B approximately 2 days ago. She notes that she does not know the history of her sexual partner and that it is not her boyfriend or significant other. She notes that she tried going to urgent care but do fact that she might have Covid even though she was artery vaccinated. Patient states that she's vomited a handful times of the last 2 days has been able to keep any fluids or food down and has not really had an appetite. She was informed that Plan B causes these type of effects due to its nature as an emergency contraceptive. Patient stated that try calling her primary care to get some Zofran sent to pharmacy but no one was answering a phone. She denied any chest pain shortness of breath headache diarrhea constipation fever fatigue chills. - Related Data Home Medications Medication Instructions Recorded Confirmed ARIPiprazole [Abilify Maintena] 400 mg SQ Q30D 10/03/20 10/03/20 Levonorgestrel [Plan B One-Step] 1.5 mg PO ONCE PRN 10/03/20 10/03/20 Methylphenidate HCl 54 mg PO DAILY PRN 10/03/20 10/03/20 [Methylphenidate HCl ER] Tri-Femyor 1 tab PO DAILY 10/03/20 10/03/20 Allergies Allergy/AdvReac Type Severity Reaction Status Date / Time venom-honey bee Allergy Swelling Verified 10/03/20 17:30 [bee venom (honey bee)] Review of Systems ROS Statement: Those systems with pertinent positive or pertinent negative responses have been documented in the HPI. ROS Other: All systems not noted in ROS Statement are negative. 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 Then blood levels came back and lowered, didnt feel high enough to keep on the synthroid. Off of synthroid since she was about 9 y/o. History of Any Multi-Drug Resistant Organisms: None Reported Additional Past Surgical History / Comment(s): PT HAD BEEN IN HOSPITAL COUPLE TIMES AND WAS DX WITH ASTHMA IN 2006. PT HAS HX OF AN ENDOSCOPY AT [facility] AND DID FINE WITH ANESTHESIA Past Anesthesia/Blood Transfusion Reactions: No Reported Reaction Additional Past Anesthesia/Blood Transfusion Reaction / Comment(s): NO BLOOD TRANSFUSION Past Psychological History: ADD/ADHD Smoking Status: Vaper Past Alcohol Use History: Occasional Past Drug Use History: Marijuana - Past Family History Brother(s) Family Medical History: Asthma Additional Family Medical History / Comment(s): BIO BROTHER WAS DX W/ASTHMA BUT GREW OUT OF IT BY AGE 3. General Exam General appearance: alert, in no apparent distress Head exam: Present: atraumatic, normocephalic, normal inspection Eye exam: Present: normal appearance, PERRL, EOMI. Absent: scleral icterus, conjunctival injection, periorbital swelling Neck exam: Present: normal inspection. Absent: tenderness, meningismus, lymphadenopathy Respiratory exam: Present: normal lung sounds bilaterally. Absent: respiratory distress, wheezes, rales, rhonchi, stridor Cardiovascular Exam: Present: regular rate, normal rhythm, normal heart sounds. Absent: systolic murmur, diastolic murmur, rubs, gallop, clicks GI/Abdominal exam: Present: soft, normal bowel sounds, other (Generalized discomfort). Absent: distended, tenderness, guarding, rebound, rigid Extremities exam: Present: normal inspection, full ROM, normal capillary refill. Absent: tenderness, pedal edema, joint swelling, calf tenderness Neurological exam: Present: alert, oriented X3, CN II-XII intact Psychiatric exam: Present: normal affect, normal mood Skin exam: Present: warm, dry, intact, normal color. Absent: rash Course Vital Signs 10/03/20 16:37 Temperature 98.1 F Pulse Rate 86 Respiratory 18 Rate Blood Pressure 113/69 O2 Sat by Pulse 98 Oximetry Medical Decision Making - Medical Decision Making 20-year-old female complaining of nausea vomiting after taking Plan B 2 days ago. Urinalysis, urine , 1 L normal saline, 4 mg of Zofran ordered. Patient declined pelvic exam and STD screening even though is recommended at this point. Urinalysis shows endotracheal infection. 1 g of Rocephin ordered. This discussed with Dr. Sullivan, patient discharge home with follow-up to primary care and [facility]. - Lab Data Lab Results 10/03/20 10/03/20 Range/Units 16:50 16:50 Urine Color Yellow Urine Appearance Cloudy H (Clear) Urine pH 6.5 (5.0-8.0) Ur Specific [place] 1.025 (1.001-1.035) Urine Protein 1+ H (Negative) Urine Glucose (UA) Negative (Negative) Urine Ketones 2+ H (Negative) Urine Blood Large H (Negative) Urine Nitrite Negative (Negative) Urine Bilirubin Negative (Negative) Urine Urobilinogen <2.0 (<2.0) mg/dL Ur Leukocyte Esterase Moderate H (Negative) Urine RBC 2 (0-5) /hpf Urine WBC 23 H (0-5) /hpf Ur Squamous Epith Cells 1 (0-4) /hpf Hyaline Casts 1 (0-2) /lpf Urine Mucus Few H (None) /hpf Urine HCG, Qual Not Detected (Not Detectd) Disposition Clinical Impression: Dehydration, Urinary tract infection Disposition: HOME SELF-CARE Condition: Stable Instructions (If sedation given, give patient instructions): Acute Nausea and Vomiting (ED) Additional Instructions: Please return to the Emergency Department if symptoms worsen or any other concerns. Follow-up primary care in 3-5 days. Follow-up with [facility] for potential STD screening. Izafran sent to pharmacy take as prescribed. Increase oral fluids. Is patient prescribed a controlled substance at d/c from ED?: No Referrals: Nicho Campuzano MD [Primary Care Provider] - 1-2 days Time of Disposition: 17:47
[2020-10-03 17:00] LABS: Appearance,Urine Cloudy (Clear); Bilirubin,Urine Negative (Negative); Blood,Urine Large (Negative); Color,Urine Yellow; Glucose,Urine (UA) Negative (Negative); Hyaline Casts,Urine 1 /lpf (0-2); Ketones,Urine 2+ (Negative); Leukocyte Esterase,Urine Moderate (Negative); Mucus,Urine Few /hpf; Nitrite,Urine Negative (Negative); PH, Urine 6.5 (5.0-8.0); Protein,Urine 1+ (Negative); RBC,Urine 2 /hpf (0-5); Specific Gravity,Urine 1.025 (1.001-1.035); Squamous Epithelial Cell,Urine 1 /hpf (0-4); Urobilinogen,Urine <2.0 mg/dL (<2.0); WBC,Urine 23 /hpf (0-5)
[2020-10-03] MEDS ORDERED: cefTRIAXone IN SWFI 1,000 MG/10 ML SYRINGE IVP STA (17:21)
[2020-10-03 18:01] VITALS: BP 124/77; PULSE 88
[2020-10-03] MEDS ORDERED: ONDANSETRON ODT 4 MG TAB PO STA (18:02)
[2020-10-03] MEDS ORDERED: ONDANSETRON 4 MG ODT STARTER PACK 2 TAB BTL PO STA (18:05)
== END 2020-10-03 18:11 | disposition home or self-care (01) ==
LOC: EC 16:10
DX: E86.0 Dehydration (principal); N39.0 Urinary tract infection, site not specified; R11.2 Nausea with vomiting, unspecified; J45.909 Unspecified asthma, uncomplicated; F90.9 Attention-deficit hyperactivity disorder, unspecified type; F17.290 Nicotine dependence, other tobacco product, uncomplicated; F12.90 Cannabis use, unspecified, uncomplicated
CPT/HCPCS: 81001; 81025; 99284; 96374; 96375; 96361; J2405; J0696; S0119

== ENCOUNTER 2021-02-07 19:54 | Emergency (ER) | payer BC, OTHER ==
[2021-02-07 20:32] VITALS: PULSE 72; TEMP 99.5
[2021-02-07] MEDS ORDERED: SODIUM CHLORIDE 0.9% 1,000 ML IV STA (20:54)
[2021-02-07] MEDS ORDERED: ONDANSETRON 4 MG/2 ML VIAL IVP STA (20:54)
--- NOTE | 2021-02-07 21:04 | ED ---
Nausea/Vomiting/Diarrhea HPI - General Chief complaint: Nausea/Vomiting/Diarrhea Stated complaint: vomiting Time Seen by Provider: 02/07/21 20:38 Source: patient Mode of arrival: ambulatory - History of Present Illness Initial comments: Patient is a 20-year-old female presenting to the emergency Department with complaints of nausea and vomiting started early this morning. He states at approximately 5 AM this morning, she woke up this abdominal cramping, nausea and vomiting has been unable to stop all day. She is also having some mild diarrhea. Her and her boyfriend both ate [employer] last night and her boyfriend is also having similar symptoms. They believe is food poisoning. She is like she's had a fever along with chills all day over she did not take her temperature. She does admit to some abdominal cramping, scattered, no specific area. She denies any history of abdominal surgeries. She denies being at this time. She denies any chest pain or short of breath. She has no further complaints. - Related Data Home Medications Medication Instructions Recorded Confirmed ARIPiprazole [Abilifbrandan Maintena] 400 mg SQ Q30D 10/03/20 10/03/20 Methylphenidate HCl 54 mg PO DAILY PRN 10/03/20 10/03/20 [Methylphenidate HCl ER] Tri-Femyor 1 tab PO DAILY 10/03/20 10/03/20 levonorgestreL [Plan B One-Step] 1.5 mg PO ONCE PRN 10/03/20 10/03/20 Previous Rx's Medication Instructions Recorded Nitrofurantoin Monohyd/M-Cryst 100 mg PO Q12HR 5 Days #10 cap 10/03/20 [Macrobid] Allergies Allergy/AdvReac Type Severity Reaction Status Date / Time venom-honey bee Allergy Swelling Verified 02/07/21 20:32 [bee venom (honey bee)] Review of Systems ROS Statement: Those systems with pertinent positive or pertinent negative responses have been documented in the HPI. ROS Other: All systems not noted in ROS Statement are negative. 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 Then blood levels came back and lowered, didnkatharine feel high enough to keep on the synthroid. Off of synthroid since she was about 9 y/o. History of Any Multi-Drug Resistant Organisms: None Reported Past Surgical History: No Surgical Hx Reported Additional Past Surgical History / Comment(s): PT HAD BEEN IN HOSPITAL COUPLE TI [facility] AND WAS DX WITH ASTHMA IN 2006. PT HAS HX OF AN ENDOSCOPY AT [facility] AND DID FINE WITH ANESTHESIA Past Anesthesia/Blood Transfusion Reactions: No Reported Reaction Additional Past Anesthesia/Blood Transfusion Reaction / Comment(s): NO BLOOD TR ANSFUSION Past Psychological History: ADD/ADHD Smoking Status: Vaper Past Alcohol Use History: Occasional Past Drug Use History: Marijuana - Past Family History Brother(s) Family Medical History: Asthma Additional Family Medical History / Comment(s): BIO BROTHER WAS DX W/ASTHMA INFANT BUT GREW OUT OF IT BY AGE 3. General Exam - General Exam Comments Initial Comments: GENERAL: Patient is well-developed and well-nourished. Patient is nontoxic and in no acute distress. HEAD: Atraumatic, normocephalic. EYES: Pupils equal round and reactive to light, extraocular movements intact, sclera anicteric, conjunctiva are normal. Eyelids were unremarkable. ENT: Moist mucous membranes. NECK: Normal range of motion, supple without lymphadenopathy or JVD. LUNGS: Unlabored respirations. Breath sounds clear to auscultation bilaterally and equal. No wheezes rales or rhonchi. HEART: Regular rate and rhythm without murmurs, rubs or gallops. ABDOMEN: Soft, generalized abdominal discomfort with palpation, no specific area pain, normoactive bowel sounds. No guarding, no rebound. No masses appreciated. : Deferred MUSCULOSKELETAL: Normal extremities with adequate strength and normal range of motion, no pitting or edema. No clubbing or cyanosis. NEUROLOGICAL: Patient is alert and oriented x 3. SKIN: Warm, Dry, normal turgor, no rashes or lesions noted. Course Vital Signs 02/07/21 20:28 Temperature 99.5 F Pulse Rate 72 Respiratory 19 Rate Blood Pressure 123/75 O2 Sat by Pulse 96 Oximetry Medical Decision Making - Medical Decision Making Patient is a 20-year-old female here with nausea, vomiting and some mild diarrhea that started early this morning. Her boyfriend is also having similar symptoms after they ate [employer] last night. Her vitals are stable. She has some scattered abdominal cramping, no specific area pain. She denies being . Labs are within normal limits. Patient was given IV fluids, Zofran and Reglan, reports improvement in her symptoms. She still having some mild cramping. Patient will be given Zofran starter pack to go home with as well as a dose of Benadryl to help to relax. Discussed with patient this is most likely food related possible viral. She is agreeable to this. She is stable for discharge. Return parameters were discussed with her and she verbalized understanding. Case discussed with Dr. Gutierrez. - Lab Data Result diagrams: 02/07/21 21:05 02/07/21 21:05 Lab Results 02/07/21 02/07/21 Range/Units 21:05 21:05 WBC 7.0 (3.8-10.6) k/uL RBC 4.53 (3.80-5.40) m/uL Hgb 13.9 (11.4-16.0) gm/dL Hct 41.0 (34.0-46.0) % MCV 90.4 (80.0-100.0) fL MCH 30.6 (25.0-35.0) pg MCHC 33.8 (31.0-37.0) g/dL RDW 12.7 (11.5-15.5) % Plt Count 296 (150-450) k/uL MPV 7.6 Neutrophils % 89 % Lymphocytes % 7 % Monocytes % 2 % Eosinophils % 2 % Basophils % 0 % Neutrophils # 6.2 (1.3-7.7) k/uL Lymphocytes # 0.5 L (1.0-4.8) k/uL Monocytes # 0.1 (0-1.0) k/uL Eosinophils # 0.1 (0-0.7) k/uL Basophils # 0.0 (0-0.2) k/uL Sodium 136 L (137-145) mmol/L Potassium 4.1 (3.5-5.1) mmol/L Chloride 104 (98-107) mmol/L Carbon Dioxide 19 L (22-30) mmol/L Anion Gap 13 mmol/L BUN 13 (7-17) mg/dL Creatinine 0.50 L (0.52-1.04) mg/dL Est GFR (CKD-EPI)AfAm >90 (>60 ml/min/1.73 sqM) Est GFR (CKD-EPI)NonAf >90 (>60 ml/min/1.73 sqM) Glucose 133 H (74-99) mg/dL Calcium 9.7 (8.4-10.2) mg/dL Total Bilirubin 0.6 (0.2-1.3) mg/dL AST 34 (14-36) U/L ALT 23 (4-34) U/L Alkaline Phosphatase 54 (38-126) U/L Total Protein 7.6 (6.3-8.2) g/dL Albumin 4.8 (3.5-5.0) g/dL Disposition Clinical Impression: Gastroenteritis Disposition: HOME SELF-CARE Condition: Stable Instructions (If sedation given, give patient instructions): Acute Nausea and Vomiting (ED) Additional Instructions: Please return to the Emergency Department if symptoms worsen or any other concerns. May take Zofran every 8 hours for any additional nausea or vomiting. Encourage little sips of fluid often. Increase diet as tolerated. Is patient prescribed a controlled substance at d/c from ED?: No Referrals: Nicho Campuzano MD [Primary Care Provider] - 1-2 days Time of Disposition: 22:22
[2021-02-07 21:15] LABS: Basophils % (A) 0 %; Eosinophils # (A) 0.1 k/uL (0-0.7); Eosinophils % (A) 2 %; HGB 13.9 gm/dL (11.4-16.0); Lymphocytes # (A) 0.5 k/uL (1.0-4.8); Lymphocytes % (A) 7 %; MCH 30.6 pg (25.0-35.0); MCHC 33.8 g/dL (31.0-37.0); MCV 90.4 fL (80.0-100.0); Mean Platelet Volume 7.6; Monocytes # (A) 0.1 k/uL (0-1.0); Monocytes % (A) 2 %; Neutrophils # (A) 6.2 k/uL (1.3-7.7); Neutrophils % (A) 89 %; Platelet Count 296 k/uL (150-450); RBC 4.53 m/uL (3.80-5.40); RDW 12.7 % (11.5-15.5)
[2021-02-07 21:33] LABS: ALT 23 U/L (4-34); AST 34 U/L (14-36); African American GFR (CKD) >90 (>60 ml/min/1.73 sqM); Albumin 4.8 g/dL (3.5-5.0); Alkaline Phosphatase 54 U/L (38-126); Anion Gap 13 mmol/L; Blood Urea Nitrogen 13 mg/dL (7-17); Calcium 9.7 mg/dL (8.4-10.2); Carbon Dioxide 19 mmol/L (22-30); Chloride 104 mmol/L (98-107); Glucose 133 mg/dL (74-99); Non-African American GFR(CKD) >90 (>60 ml/min/1.73 sqM); Potassium 4.1 mmol/L (3.5-5.1); Sodium 136 mmol/L (137-145); Total Bilirubin 0.6 mg/dL (0.2-1.3); Total Protein 7.6 g/dL (6.3-8.2)
[2021-02-07] MEDS ORDERED: METOCLOPRAMIDE 5 MG/ML 2 ML VIAL IVP STA (21:44)
[2021-02-07] MEDS ORDERED: KETOROLAC 15 MG/ML 1 ML VIAL IVP STA (21:44)
[2021-02-07] MEDS ORDERED: diphenhydrAMINE 50 MG CAP PO STA (22:20)
[2021-02-07] MEDS ORDERED: ONDANSETRON 4 MG ODT STARTER PACK 2 TAB BTL PO STA (22:21)
[2021-02-07 22:38] VITALS: BP 124/86; RESP 20
== END 2021-02-07 22:38 | disposition home or self-care (01) ==
LOC: EC 19:54
DX: K52.9 Noninfective gastroenteritis and colitis, unspecified (principal); J45.909 Unspecified asthma, uncomplicated; F90.9 Attention-deficit hyperactivity disorder, unspecified type; F17.290 Nicotine dependence, other tobacco product, uncomplicated; F12.90 Cannabis use, unspecified, uncomplicated; Z91.030 Bee allergy status
CPT/HCPCS: 99284; 96374; 96375 ×2; 96361; 36415; 80053; 85025; J2765; J2405; J1885; S0119

== ENCOUNTER 2021-07-05 00:32 | Observation (INO) | payer BC, OTHER ==
[2021-07-05] MEDS ORDERED: NALOXONE 0.4 MG/ML 1 ML VIAL IV PRN (00:40)
[2021-07-05] MEDS ORDERED: PROCHLORPERAZINE SUPPOSITORY 25 MG SUPP RECTAL PRN (00:52)
--- NOTE | 2021-07-05 00:53 | P.HPIM ---
History of Present Illness H&P Date: 07/05/21 The patient is a 21-year-old female with no known PMH who had presented to the emergency room with depression and suicidal ideation. The patient was admitted to the mental health unit where she was seen earlier tonight due to complaints of intractable nausea and vomiting. The patient reports that she has been unable to keep down any solids for the past 1 week. She denied any prior history of such episodes. She denied marijuana use. She further reported mild left lower quadrant abdominal pain, nonradiating, 3 out of 10. She denied fever, chills, urinary complaints, chest discomfort, shortness of breath, diarrhea. Laboratory evaluation revealed a potassium of 3.1. The patient continued to have intractable nausea and vomiting despite Reglan and Zofran. The patient is thereby being transferred to the medical service for intravenous replacement of potassium and IV hydration. Review of systems: Pertinent positives and negatives as discussed in HPI, a complete review of systems was performed and all other systems are negative. Physical examination: General: non toxic, no distress, appears at stated age, normal weight Derm: no unusual rashes/lesions no unusual ecchymoses, warm, dry Head: atraumatic, normocephalic, symmetric Eyes: EOMI, no lid lag, anicteric sclera, pupils equal round reactive to light ENT: Nose and ears atraumatic, no thrush, no pharyngeal erythema Neck: No thyromegaly, no cervical lymphadenopathy, trachea midline, supple Mouth: no lip lesion, mucus membranes moist Cardiovascular: S1S2 reg, no murmur, positive posterior tibial pulse bilateral, no edema, capillary refill less than 2 seconds Lungs: CTA bilateral, no rhonchi, no rales , no accessory muscle use Abdominal: soft, minimal left lower quadrant tenderness, no guarding, no appreciable organomegaly, normal bowel sounds Ext: no gross muscle atrophy, muscle strength 5 out of 5 in all 4 extremities grossly, no contractures, Neuro: CN II-XI grossly intact, light touch intact all 4 extremities, finger to nose within normal limits, Psych: Alert, oriented, appropriate affect Assessment/plan Hypokalemia -Replace and monitor Intractable nausea and vomiting -Continue with antiemetics -IV fluids Depression and suicidal ideation -Continue with 1:1 suicide precaution sitter -Psychiatry consult DVT prophylaxis -IPCDs The patient is admitted with an anticipated less than 2 midnight stay for evaluation of hypoK CODE STATUS: Full Code Discussed with: Patient Anticipated discharge date: in am Anticipated discharge place: [facility] Past Medical History Past Medical History: Asthma Additional Past Medical History / Comment(s): dx with connorlaurita at 8-9 y/o on synthroid for a while and 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 Then blood levels came back and lowered, didnt feel high enough to keep on the synthroid. Off of synthroid since she was about 9 y/o. History of Any Multi-Drug Resistant Organisms: None Reported Past Surgical History: No Surgical Hx Reported Additional Past Surgical History / Comment(s): PT HAD BEEN IN HOSPITAL COUPLE TIMES AND WAS DX WITH ASTHMA IN 2006. PT HAS HX OF AN ENDOSCOPY AT [facility] [place] AND DID FINE WITH ANESTHESIA Past Anesthesia/Blood Transfusion Reactions: No Reported Reaction Additional Past Anesthesia/Blood Transfusion Reaction / Comment(s): NO BLOOD TRANSFUSION Past Psychological History: ADD/ADHD Smoking Status: Vaper Past Alcohol Use History: Occasional Past Drug Use History: Marijuana Additional Drug Use History / Comment(s): Pt states that she has been taking someone elses Adderall 20mg for the last 19 days. - Past Family History Brother(s) Family Medical History: Asthma Additional Family Medical History / Comment(s): BIO BROTHER WAS DX W/ASTHMA INFANT BUT GREW OUT OF IT BY AGE 3. Medications and Allergies Home Medications Medication Instructions Recorded Confirmed Type ARIPiprazole [Abilify Maintena] 400 mg SQ Q30D 10/03/20 07/01/21 History Dextroamphetamine/Amphetamine 20 mg PO DIRECTED 07/01/21 07/01/21 History [Adderall] busPIRone HCl [Buspar] 5 mg PO BID 07/01/21 07/01/21 History Allergies Allergy/AdvReac Type Severity Reaction Status Date / Time venom-honey bee Allergy Swelling Verified 07/01/21 14:25 [bee venom (honey bee)]
[2021-07-05] MEDS: SODIUM CHLORIDE 0.9% 1,000 ML IV SCH ×4 (01:55→22:11)
[2021-07-05] MEDS: POTASSIUM CHLORIDE 10 MEQ in WATER FOR INJECTION 1 100ML.BAG IVPB SCH ×4 (01:56→04:59)
[2021-07-05] MEDS: PANTOPRAZOLE 40 MG/10 ML VIAL IVP SCH (09:31)
[2021-07-05] MEDS: SERTRALINE 50 MG TAB PO SCH (09:31)
--- NOTE | 2021-07-05 14:34 | P.PN ---
Progress Note - Text Progress Note Date: 07/05/21 Patient was seen and examined. Her nausea and vomiting are better but she continues to have left-sided abdominal pain. He was replaced yesterday, will order follow-up electrolytes today. We'll check lipase. Urinalysis from yesterday was noted to be positive for pyuria that could explain patient's symptoms, we'll start ceftriaxone IV for UTI and follow urine cultures. We'll also order abdomen x-ray.
[2021-07-05 15:33] LABS: ALT 9 U/L (4-34); AST 17 U/L (14-36); African American GFR (CKD) >90 (>60 ml/min/1.73 sqM); Albumin 3.3 g/dL (3.5-5.0); Albumin/Globulin Ratio 1.6; Alkaline Phosphatase 40 U/L (38-126); Anion Gap 7 mmol/L; Blood Urea Nitrogen 6 mg/dL (7-17); Carbon Dioxide 27 mmol/L (22-30); Chloride 102 mmol/L (98-107); Globulin 2.1 g/dL; Glucose 97 mg/dL (74-99); Lipase 398 U/L (23-300); Magnesium 2.2 mg/dL (1.6-2.3); Non-African American GFR(CKD) >90 (>60 ml/min/1.73 sqM); Potassium 3.2 mmol/L (3.5-5.1); Sodium 136 mmol/L (137-145); Total Bilirubin 0.6 mg/dL (0.2-1.3); Total Protein 5.4 g/dL (6.3-8.2)
--- NOTE | 2021-07-05 15:40 | XR ---
EXAMINATION TYPE: XR abdomen 1V DATE OF EXAM: 07/05/2021 COMPARISON: NONE HISTORY: Vomiting TECHNIQUE: 2 views FINDINGS: There is no sign of intestinal obstruction or pneumoperitoneum. Fecal pattern is normal. Th ere is no evidence of a mass. There are no pathologic calcifications over the kidneys. IMPRESSION: Nonacute abdomen.
[2021-07-05 15:42] LABS: Basophils % (A) 1 %; Eosinophils # (A) 0.2 k/uL (0-0.7); Eosinophils % (A) 4 %; HCT 36.6 % (34.0-46.0); HGB 12.5 gm/dL (11.4-16.0); Lymphocytes # (A) 2.1 k/uL (1.0-4.8); Lymphocytes % (A) 45 %; MCH 31.4 pg (25.0-35.0); MCHC 34.3 g/dL (31.0-37.0); MCV 91.6 fL (80.0-100.0); Mean Platelet Volume 7.5; Monocytes # (A) 0.3 k/uL (0-1.0); Monocytes % (A) 6 %; Neutrophils % (A) 43 %; Platelet Count 314 k/uL (150-450); RBC 3.99 m/uL (3.80-5.40); RDW 12.2 % (11.5-15.5); WBC 4.6 k/uL (3.8-10.6)
[2021-07-05] MEDS ORDERED: POTASSIUM CHLORIDE ER 20 MEQ TAB.ER PO STA (16:29)
[2021-07-05] MEDS: ONDANSETRON 4 MG/2 ML VIAL IVP PRN (18:28)
[2021-07-05] MEDS: MIRTAZAPINE 15 MG TAB PO SCH (22:11)
[2021-07-06] MEDS: SODIUM CHLORIDE 0.9% 1,000 ML IV SCH ×3 (04:58→17:56)
[2021-07-06] MEDS: SERTRALINE 50 MG TAB PO SCH (08:59)
[2021-07-06] MEDS: PANTOPRAZOLE 40 MG/10 ML VIAL IVP SCH (08:59)
[2021-07-06 10:59] LABS: Basophils # (A) 0.04 X 10*3/uL (0.00-0.10); Basophils % (A) 0.8 %; Eosinophils # (A) 0.02 X 10*3/uL (0.04-0.35); Eosinophils % (A) 0.4 %; HCT 37.6 % (37.2-46.3); HGB 12.6 g/dL (12.0-15.0); Immature Grans, Automated 0.2 %; Lymphocytes # (A) 1.48 X 10*3/uL (0.90-5.00); Lymphocytes % (A) 30.7 %; MCH 29.9 pg (27.0-32.0); MCHC 33.5 g/dL (32.0-37.0); MCV 89.1 fL (80.0-97.0); Mean Platelet Volume 9.8 fL (9.5-12.2); Monocytes % (A) 8.3 %; NRBC Per 100 WBC 0 /100 WBCS (0.0-0.0); Neutrophils # (A) 2.87 X 10*3/uL (1.80-7.70); Neutrophils % (A) 59.6 %; Platelet Count 319 X 10*3/uL (140-440); RBC 4.22 X 10*6/uL (4.10-5.20); RDW 11.4 % (11.5-14.5); WBC 4.82 X 10*3/uL (4.50-10.00)
[2021-07-06 11:19] LABS: African American GFR (CKD) 159.2 (60.0-200.0); Albumin 4.1 g/dL (3.8-4.9); Albumin/Globulin Ratio 2.41 (1.60-3.17); Anion Gap 12.8 mmol/L (10.00-18.00); BUN/Creat Ratio 7.2 Ratio (12.00-20.00); Blood Urea Nitrogen 3.6 mg/dL (9.0-27.0); Calcium 8.6 mg/dL (8.7-10.3); Carbon Dioxide 23.2 mmol/L (20.0-27.5); Globulin 1.7 g/dL (1.6-3.3); Non-African American GFR(CKD) 137.4 (60.0-200.0); Potassium 3.7 mmol/L (3.5-5.5); Total Bilirubin 0.4 mg/dL (0.30-1.20); Total Protein 5.8 g/dL (6.2-8.2)
--- NOTE | 2021-07-06 12:14 | P.PN ---
Progress Note - Text Progress Note Date: 07/06/21 Medically optimized for discharge. Overweight psych recommendations as to whether or not patient needs to return to therefore.
[2021-07-06] MEDS: ONDANSETRON 4 MG/2 ML VIAL IVP PRN (14:15)
--- NOTE | 2021-07-06 17:16 | P.PN ---
Subjective Progress Note Date: 07/06/21 (delayed charting seen at 1230) Principal diagnosis: nausea and vomiting Patient is a 21-year-old female who initially had presented to the ER with depression and suicidal ideation who was initially admitted to the mental health unit. She then developed intractable nausea and vomiting along with hypokalemia and was subsequently transferred to the medical unit. Initial laboratory analysis showed a sodium of 136, potassium 3.2, and lipase of 398. KUB demonstrated no acute process. She was started on IV fluids and her potassium was replaced. He is also started on a PPI. Initially her nausea and vomiting have resolved and she tolerated lunch and dinner on 07/05. Plan was for discharge on 07/06. The patient again became nauseated. Patient seen and examined at bedside. At the time of my examination her nausea and vomiting were resolved. She is complaining of some left upper quadrant pain. She denied any diarrhea or constipation. She was also having epigastric pain. General: non toxic, no distress, appears at stated age Derm: warm, dry Head: atraumatic, normocephalic, symmetric Eyes: EOMI, no lid lag, anicteric sclera Mouth: no lip lesion, mucus membranes dry Cardiovascular: S1S2 reg, no murmur, positive posterior tibial pulse bilateral, Lungs: CTA bilateral, no rhonchi, no rales , no accessory muscle use Abdominal: soft, pain to palpation periumbilical, right upper quadrant, and left upper quadrant, no guarding, no hepatosplenomegaly Ext: no gross muscle atrophy, no edema, no contractures Neuro: CN II-XI grossly intact, no focal neuro deficits Psych: Alert, oriented, appropriate affect Intractable nausea and vomiting Intractable abdominal pain Hypokalemia, resolved Chronic marijuana use with concerns for cyclic vomiting Recent psychiatric admission for depression and suicidal ideation -We will check gallbladder ultrasound, continue with antiemetics and PPI. -Await psychiatry recommendations -Decrease IV fluids - If her ultrasound unrevealing and patient continues to have pain we'll consider CT abdomen and pelvis. - urine Hcg negative on 07/01/21 Active Medications Generic Name Dose Route Start Last Admin Trade Name Freq PRN Reason Stop Dose Admin Sodium Chloride 1,000 mls @ 75 mls/hr 07/05/21 00:45 07/06/21 11:59 Saline 0.9% IV 150 mls/hr .[id number] ANNE Administration Mirtazapine 30 mg 07/05/21 21:00 07/05/21 22:11 Mirtazapine 15 Mg Tab PO 30 mg HS ANNE Administration Naloxone HCl 0.2 mg 07/05/21 00:40 Naloxone 0.4 Mg/Ml 1 Ml Vial IV Q2M PRN Opioid Reversal Ondansetron HCl 4 mg 07/05/21 00:43 07/06/21 14:15 Ondansetron 4 Mg/2 Ml Vial IVP 4 mg Q6HR PRN Administration Nausea And Vomiting Pantoprazole Sodium 40 mg 07/05/21 09:00 07/06/21 08:59 Pantoprazole 40 Mg/10 Ml Vial IVP 40 mg DAILY ANNE Administration Prochlorperazine Maleate 25 mg 07/05/21 00:52 07/05/21 20:56 Prochlorperazine Suppository 25 Mg Supp RECTAL 25 mg BID PRN Administration Nausea And Vomiting Sertraline HCl 50 mg 07/05/21 09:00 07/06/21 08:59 Sertraline 50 Mg Tab PO 50 mg DAILY ANNE Administration Objective - Vital Signs Vital signs: Vital Signs Temp 98.5 F 07/06/21 14:29 Pulse 71 07/06/21 14:29 Resp 15 07/06/21 14:29 BP 161/100 07/06/21 14:29 Pulse Ox 100 07/06/21 14:29 Intake & Output 07/05/21 07/06/21 07/06/21 18:59 06:59 18:59 Intake Total 236 1300 Output Total 3 Balance 236 1297 Intake: Intake, IV Titration 1300 Amount Sodium Chloride 0.9% 1, 1200 000 ml @ 150 mls/hr IV . Q6H40M [facility] Rx#:[id number] cefTRIAXone 1 gm In 100 Sodium Chloride 0.9% 50 ml @ 100 mls/hr IVPB Q24HR [facility] Rx#:[id number] Oral 236 Output: Emesis 3 Other: Voiding Method Toilet # Voids 1 2 - Labs CBC & Chem 7: 07/06/21 07:54 07/06/21 07:54 Labs: Abnormal Lab Results - Last 24 Hours (Table) 07/06/21 07/06/21 Range/Units 07:54 07:54 RDW 11.4 L (11.5-14.5) % Eosinophils # 0.02 L (0.04-0.35) X 10*3/uL BUN 3.6 L (9.0-27.0) mg/dL Creatinine 0.5 L (0.6-1.5) mg/dL BUN/Creatinine Ratio 7.20 L (12.00-20.00) Ratio Calcium 8.6 L (8.7-10.3) mg/dL AST 12 L (13-35) U/L Total Protein 5.8 L (6.2-8.2) g/dL
[2021-07-06 18:19] LABS: Appearance,Urine Clear (Clear); Bacteria,Urine Rare /hpf; Bilirubin,Urine Negative (Negative); Blood,Urine Large (Negative); Color,Urine Light Yellow; Glucose,Urine (UA) Negative (Negative); Ketones,Urine 1+ (Negative); Leukocyte Esterase,Urine Negative (Negative); Mucus,Urine Rare /hpf; Nitrite,Urine Negative (Negative); Protein,Urine Negative (Negative); RBC,Urine >182 /hpf (0-5); Specific Gravity,Urine 1.006 (1.001-1.035); Squamous Epithelial Cell,Urine 1 /hpf (0-4); Urobilinogen,Urine <2.0 mg/dL (<2.0); WBC,Urine 1 /hpf (0-5)
[2021-07-06] MEDS: MIRTAZAPINE 15 MG TAB PO SCH (21:13)
[2021-07-06] MEDS: MORPHINE SULFATE 2 MG/ML SYRINGE IVP PRN (21:28)
[2021-07-07] MEDS: SODIUM CHLORIDE 0.9% 1,000 ML IV SCH ×2 (01:03→14:25)
[2021-07-07 01:16] VITALS: RESP 16
[2021-07-07 07:28] VITALS: BP 120/76; PULSE 71; TEMP 98.4
[2021-07-07] MEDS: MORPHINE SULFATE 2 MG/ML SYRINGE IVP PRN (07:58)
--- NOTE | 2021-07-07 07:58 | US ---
EXAMINATION TYPE: US gallbladder DATE OF EXAM: 07/07/2021 COMPARISON: CT 2016 CLINICAL HISTORY: abdominal pain. RUQ pain EXAM MEASUREMENTS: Liver Length: 11.8 cm Gallbladder Wall: 0.2 cm CBD: 0.4 cm Right Kidney: 11.5 x 4.2 x 4.7 cm Pancreas: wnl Liver: wnl Gallbladder: No stones seen Evidence for sonographic Kaur's sign: No CBD: wnl Right Kidney: No hydronephrosis or masses seen IMPRESSION: No shadowing mobile gallstones or ultrasound evidence for acute cholecystitis.
[2021-07-07] MEDS: SERTRALINE 50 MG TAB PO SCH (08:13)
[2021-07-07] MEDS: PANTOPRAZOLE 40 MG/10 ML VIAL IVP SCH (08:14)
[2021-07-07 10:54] VITALS: BMI 17.9
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
--- NOTE | 2021-07-07 15:59 | P.DS ---
Providers Date of admission: 07/05/21 01:11 Expected date of discharge: 07/07/21 Attending physician: Joslyn Ulloa MD Consults: 07/06/21 11:56 Consult Physician Routine Consulting Provider: Sesar Royal Consult Reason/Comments: follow from [facility] admission Do you want consulting provider notified?: Yes Primary care physician: Nicho Campuzano MD Hospital Course: Discharge Diagnosis: Intractable nausea and vomiting Intractable abdominal pain Hypokalemia, resolved Chronic marijuana use with concerns for cyclic vomiting Recent psychiatric admission for depression and suicidal ideation Hospital Course: Patient is a 21-year-old female who initially had presented to the ER with depression and suicidal ideation who was initially admitted to the mental health unit. She then developed intractable nausea and vomiting along with hypokalemia and was subsequently transferred to the medical unit. Initial laboratory analysis showed a sodium of 136, potassium 3.2, and lipase of 398. KUB demonstrated no acute process. She was started on IV fluids and her potassium was replaced. He is also started on a PPI. Initially her nausea and vomiting have resolved and she tolerated lunch and dinner on 07/05. Plan was for discharge on 07/06. The patient again became nauseated. She had a gallbladder US that was negative. She was seen by psych and was cleared by discharge. Her nasuea was resolved and she was toelrating a diet. She will continue on her PPI and follow-up with Dr. Campuzano in 2-4 days. She will follow-up Dr Chio becerra [facility] in 1-2 weeks. She has been started on zoloft and seroquel per psychitry recommendations. Patient seen and examined at bedside. No nasuea, no vomiting, abdominal pain getting better, tolerating diet and wants to go home. Vital signs reviewed and stable. General: non toxic, no distress, appears at stated age Derm: warm, dry Head: atraumatic, normocephalic, symmetric Eyes: EOMI, no lid lag, anicteric sclera Mouth: no lip lesion, mucus membranes moist Cardiovascular: S1S2 reg, no murmur, positive posterior tibial pulse bilateral, Lungs: CTA bilateral, no rhonchi, no rales , no accessory muscle use Abdominal: soft, +tender to palpation LUQ, no guarding, no appreciable organomegaly Ext: no gross muscle atrophy, no edema, no contractures Neuro: CN II-XI grossly intact, no focal neuro deficits Psych: Alert, oriented, appropriate affect A total of 25 minutes of time were spent preparing this complex discharge summary . Patient Condition at Discharge: Stable Plan - Discharge Summary Discharge Rx Participant: No New Discharge Prescriptions: New QUEtiapine [SEROquel] 50 mg PO HS #15 tab Omeprazole 40 mg PO DAILY #30 cap Sertraline [Zoloft] 50 mg PO DAILY #30 tab Continue Dextroamphetamine/Amphetamine [Adderall] 20 mg PO DIRECTED ARIPiprazole [Abilify Maintena] 400 mg SQ Q30D Discontinued busPIRone HCl [Buspar] 5 mg PO BID Discharge Medication List ARIPiprazole [Abilify Maintena] 400 mg SQ Q30D 10/03/20 [History] Dextroamphetamine/Amphetamine [Adderall] 20 mg PO DIRECTED 07/01/21 [History] Omeprazole 40 mg PO DAILY #30 cap 07/07/21 [Rx] QUEtiapine [SEROquel] 50 mg PO HS #15 tab 07/07/21 [Rx] Sertraline [Zoloft] 50 mg PO DAILY #30 tab 07/07/21 [Rx] Follow up Appointment(s)/Referral(s): Nicho Campuzano MD [Primary Care Provider] - 1 Week Activity/Diet/Wound Care/Special Instructions: Activity: as tolerated Diet: regular follow up with Dr. Alamo in 1-2 weeks
== END 2021-07-07 17:25 | disposition home or self-care (01) ==
LOC: 6NMEDSUR 01:11
PROVIDERS: ADMIT Internal Medicine; ATTEND Internal Medicine
DX: R11.2 Nausea with vomiting, unspecified (principal); R10.32 Left lower quadrant pain; R10.12 Left upper quadrant pain; R10.13 Epigastric pain; E87.6 Hypokalemia; F32.3 Major depressive disorder, single episode, severe with psychotic features; R45.851 Suicidal ideations; J45.909 Unspecified asthma, uncomplicated; F90.9 Attention-deficit hyperactivity disorder, unspecified type; N39.0 Urinary tract infection, site not specified; F15.13 Other stimulant abuse with withdrawal; F41.9 Anxiety disorder, unspecified; G47.00 Insomnia, unspecified; Z79.890 Hormone replacement therapy; Z79.899 Other long term (current) drug therapy; Z91.030 Bee allergy status; Z71.89 Other specified counseling; Z82.5 Family history of asthma and other chronic lower respiratory diseases
CPT/HCPCS: 96376 ×2; 96361 ×3; 96365; 96366 ×2; 96367; 96375; 80053 ×2; 83690; 83735; 85025 ×2; 81001; 74018; 76705; G0379; G0378 ×3; J2405 ×2; J0696 ×2; J2270 ×2; J3480; C9113 ×3

== ENCOUNTER 2021-11-13 00:41 | Emergency (ER) | payer BC, OTHER ==
[2021-11-13 00:57] VITALS: RESP 18
[2021-11-13] MEDS ORDERED: SODIUM CHLORIDE 0.9% 1,000 ML IV STA (04:30)
[2021-11-13] MEDS ORDERED: ONDANSETRON 4 MG/2 ML VIAL IVP STA (04:30)
[2021-11-13] MEDS ORDERED: DEXTROSE 5%-0.45% NACL 1,000 ML IV ONE (04:31)
[2021-11-13] MEDS ORDERED: FAMOTIDINE 20 MG/2 ML VIAL IV STA (04:31)
[2021-11-13 05:14] LABS: Basophils # (A) 0.1 k/uL (0-0.2); Basophils % (A) 1 %; Eosinophils # (A) 0.1 k/uL (0-0.7); Eosinophils % (A) 2 %; HCT 40.2 % (34.0-46.0); HGB 13.8 gm/dL (11.4-16.0); Lymphocytes # (A) 1.3 k/uL (1.0-4.8); Lymphocytes % (A) 17 %; MCH 31.3 pg (25.0-35.0); MCHC 34.3 g/dL (31.0-37.0); MCV 91.2 fL (80.0-100.0); Mean Platelet Volume 7.5; Monocytes # (A) 0.3 k/uL (0-1.0); Monocytes % (A) 3 %; Neutrophils # (A) 5.8 k/uL (1.3-7.7); Neutrophils % (A) 76 %; Platelet Count 356 k/uL (150-450); RDW 12.2 % (11.5-15.5); WBC 7.6 k/uL (3.8-10.6)
[2021-11-13 05:25] LABS: ALT 12 U/L (4-34); AST 18 U/L (14-36); African American GFR (CKD) >90 (>60 ml/min/1.73 sqM); Albumin 4.7 g/dL (3.5-5.0); Alkaline Phosphatase 60 U/L (38-126); Amylase 52 U/L (30-110); Anion Gap 10 mmol/L; Blood Urea Nitrogen 15 mg/dL (7-17); Calcium 9.2 mg/dL (8.4-10.2); Carbon Dioxide 29 mmol/L (22-30); Chloride 96 mmol/L (98-107); Glucose 98 mg/dL (74-99); Lipase 84 U/L (23-300); Non-African American GFR(CKD) >90 (>60 ml/min/1.73 sqM); Potassium 3.3 mmol/L (3.5-5.1); Sodium 135 mmol/L (137-145); Total Bilirubin 0.7 mg/dL (0.2-1.3); Total Protein 7.2 g/dL (6.3-8.2)
[2021-11-13 05:40] LABS: Amorphous Sediment,Urine Occasional /hpf; Appearance,Urine Cloudy (Clear); Bacteria,Urine Rare /hpf; Bilirubin,Urine Negative (Negative); Blood,Urine Negative (Negative); Color,Urine Yellow; Glucose,Urine (UA) Negative (Negative); Hyaline Casts,Urine 1 /lpf (0-2); Ketones,Urine 4+ (Negative); Leukocyte Esterase,Urine Trace (Negative); Mucus,Urine Few /hpf; Nitrite,Urine Negative (Negative); Protein,Urine 1+ (Negative); RBC,Urine 3 /hpf (0-5); Specific Gravity,Urine 1.027 (1.001-1.035); Squamous Epithelial Cell,Urine 1 /hpf (0-4); Urobilinogen,Urine <2.0 mg/dL (<2.0); WBC,Urine 3 /hpf (0-5)
[2021-11-13] MEDS ORDERED: MAG HYDROX/AL HYDROX/SIMETH 30 ML, HYOSCYAMINE ELIXIR 10 ML, LIDOCAINE VISCOUS 2% 10 ML PO STA ×3 (06:40)
--- NOTE | 2021-11-13 07:36 | ED ---
Nausea/Vomiting/Diarrhea HPI - General Chief complaint: Nausea/Vomiting/Diarrhea Stated complaint: Vomiting Time Seen by Provider: 11/13/21 04:23 Source: patient Mode of arrival: ambulatory Limitations: no limitations - History of Present Illness Initial comments: This patient is 21-year-old woman who presents with complaint that she is having more or less continuous nausea and vomiting since previous Tuesday. She states she had gone to [place] and did have some alcoholic drinks. She had some vomiting following that and then has not really been able to keep down much in way of food or drinks. She is having some epigastric discomfort, mild. No hematemesis. No bloody or tarry stools. MD complaint: nausea, vomiting Onset/Timin -: days(s) Description of Vomiting: food contents Associated Abdominal Pain: Yes Location: epigastric Severity: mild Quality: aching, other (Burning) Consistency: constant Improves with: none Worsens with: none Associated Symptoms: nausea/vomiting - Related Data Home Medications Medication Instructions Recorded Confirmed ARIPiprazole [Abilify Maintena] 400 mg SQ Q30D 10/03/20 07/05/21 Dextroamphetamine/Amphetamine 20 mg PO DIRECTED 07/01/21 07/05/21 [Adderall] Previous Rx's Medication Instructions Recorded Omeprazole 40 mg PO DAILY #30 cap 07/07/21 QUEtiapine [SEROquel] 50 mg PO HS #15 tab 07/07/21 Sertraline [Zoloft] 50 mg PO DAILY #30 tab 07/07/21 Ondansetron Odt [Zofran ODT] 4 mg PO Q8HR PRN #10 tab 11/13/21 Allergies Allergy/AdvReac Type Severity Reaction Status Date / Time venom-honey bee Allergy Swelling Verified 11/13/21 00:54 [bee venom (honey bee)] Review of Systems ROS Statement: Those systems with pertinent positive or pertinent negative responses have been documented in the HPI. ROS Other: All systems not noted in ROS Statement are negative. Constitutional: Denies: fever, chills Respiratory: Denies: cough, dyspnea Cardiovascular: Denies: chest pain, palpitations Gastrointestinal: Reports: abdominal pain, nausea, vomiting, diarrhea. 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 Then blood levels came back and lowered, didnkatharine feel high enough to keep on the synthroid. Off of synthroid since she was about 9 y/o. History of Any Multi-Drug Resistant Organisms: None Reported Past Surgical History: No Surgical Hx Reported Additional Past Surgical History / Comment(s): PT HAD BEEN IN HOSPITAL COUPLE TIMES AND WAS DX WITH ASTHMA IN 2006. PT HAS HX OF AN ENDOSCOPY AT [facility] AND DID FINE WITH ANESTHESIA Past Anesthesia/Blood Transfusion Reactions: No Reported Reaction Additional Past Anesthesia/Blood Transfusion Reaction / Comment(s): NO BLOOD TRANSFUSION Past Psychological History: ADD/ADHD Smoking Status: Vaper Past Alcohol Use History: Occasional Past Drug Use History: Marijuana - Past Family History Brother(s) Family Medical History: Asthma Additional Family Medical History / Comment(s): BIO BROTHER WAS DX W/ASTHMA BUT GREW OUT OF IT BY AGE 3. General Exam Limitations: no limitations General appearance: alert, in no apparent distress Head exam: Present: atraumatic, normocephalic Eye exam: Present: normal appearance. Absent: scleral icterus, conjunctival injection ENT exam: Present: mucous membranes dry Neck exam: Present: normal inspection Respiratory exam: Present: normal lung sounds bilaterally. Absent: respiratory distress, wheezes, rales, rhonchi, stridor Cardiovascular Exam: Present: regular rate, normal rhythm, normal heart sounds. Absent: systolic murmur, diastolic murmur, rubs, gallop GI/Abdominal exam: Present: soft. Absent: distended, tenderness, guarding, rebound, rigid, mass, pulsatile mass Extremities exam: Present: normal inspection, normal capillary refill. Absent: pedal edema, calf tenderness Back exam: Present: normal inspection. Absent: CVA tenderness (R), CVA tenderness (L) Neurological exam: Present: alert Skin exam: Present: warm, dry, intact, normal color. Absent: rash Course Vital Signs 11/13/21 11/13/21 11/13/21 00:54 04:26 07:00 Temperature 98.3 F 98.7 F Pulse Rate 94 71 82 Respiratory 18 18 18 Rate Blood Pressure 150/78 119/68 130/85 O2 Sat by Pulse 98 100 100 Oximetry 11/13/21 07:57 Temperature 98 F Pulse Rate 60 Respiratory 18 Rate Blood Pressure 113/69 O2 Sat by Pulse 98 Oximetry Medical Decision Making - Lab Data Result diagrams: 11/13/21 05:05 11/13/21 05:05 Lab Results 11/13/21 11/13/21 11/13/21 Range/Units 05:05 05:05 05:05 WBC 7.6 (3.8-10.6) k/uL RBC 4.40 (3.80-5.40) m/uL Hgb 13.8 (11.4-16.0) gm/dL Hct 40.2 (34.0-46.0) % MCV 91.2 (80.0-100.0) fL MCH 31.3 (25.0-35.0) pg MCHC 34.3 (31.0-37.0) g/dL RDW 12.2 (11.5-15.5) % Plt Count 356 (150-450) k/uL MPV 7.5 Neutrophils % 76 % Lymphocytes % 17 % Monocytes % 3 % Eosinophils % 2 % Basophils % 1 % Neutrophils # 5.8 (1.3-7.7) k/uL Lymphocytes # 1.3 (1.0-4.8) k/uL Monocytes # 0.3 (0-1.0) k/uL Eosinophils # 0.1 (0-0.7) k/uL Basophils # 0.1 (0-0.2) k/uL Sodium (137-145) mmol/L Potassium (3.5-5.1) mmol/L Chloride (98-107) mmol/L Carbon Dioxide (22-30) mmol/L Anion Gap mmol/L BUN (7-17) mg/dL Creatinine (0.52-1.04) mg/dL Est GFR (CKD-EPI)AfAm (>60 ml/min/1.73 sqM) Est GFR (CKD-EPI)NonAf (>60 ml/min/1.73 sqM) Glucose (74-99) mg/dL Calcium (8.4-10.2) mg/dL Total Bilirubin (0.2-1.3) mg/dL AST (14-36) U/L ALT (4-34) U/L Alkaline Phosphatase (38-126) U/L Total Protein (6.3-8.2) g/dL Albumin (3.5-5.0) g/dL Amylase (30-110) U/L Lipase (23-300) U/L Urine Color Yellow Urine Appearance Cloudy H (Clear) Urine pH 8.0 (5.0-8.0) Ur Specific [place] 1.027 (1.001-1.035) Urine Protein 1+ H (Negative) Urine Glucose (UA) Negative (Negative) Urine Ketones 4+ H (Negative) Urine Blood Negative (Negative) Urine Nitrite Negative (Negative) Urine Bilirubin Negative (Negative) Urine Urobilinogen <2.0 (<2.0) mg/dL Ur Leukocyte Esterase Trace H (Negative) Urine RBC 3 (0-5) /hpf Urine WBC 3 (0-5) /hpf Ur Squamous Epith Cells 1 (0-4) /hpf Amorphous Sediment Occasional H (None) /hpf Urine Bacteria Rare H (None) /hpf Hyaline Casts 1 (0-2) /lpf Urine Mucus Few H (None) /hpf Urine HCG, Qual Not Detected (Not Detectd) 11/13/21 Range/Units 05:05 WBC (3.8-10.6) k/uL RBC (3.80-5.40) m/uL Hgb (11.4-16.0) gm/dL Hct (34.0-46.0) % MCV (80.0-100.0) fL MCH (25.0-35.0) pg MCHC (31.0-37.0) g/dL RDW (11.5-15.5) % Plt Count (150-450) k/uL MPV Neutrophils % % Lymphocytes % % Monocytes % % Eosinophils % % Basophils % % Neutrophils # (1.3-7.7) k/uL Lymphocytes # (1.0-4.8) k/uL Monocytes # (0-1.0) k/uL Eosinophils # (0-0.7) k/uL Basophils # (0-0.2) k/uL Sodium 135 L (137-145) mmol/L Potassium 3.3 L (3.5-5.1) mmol/L Chloride 96 L (98-107) mmol/L Carbon Dioxide 29 (22-30) mmol/L Anion Gap 10 mmol/L BUN 15 (7-17) mg/dL Creatinine 0.59 (0.52-1.04) mg/dL Est GFR (CKD-EPI)AfAm >90 (>60 ml/min/1.73 sqM) Est GFR (CKD-EPI)NonAf >90 (>60 ml/min/1.73 sqM) Glucose 98 (74-99) mg/dL Calcium 9.2 (8.4-10.2) mg/dL Total Bilirubin 0.7 (0.2-1.3) mg/dL AST 18 (14-36) U/L ALT 12 (4-34) U/L Alkaline Phosphatase 60 (38-126) U/L Total Protein 7.2 (6.3-8.2) g/dL Albumin 4.7 (3.5-5.0) g/dL Amylase 52 (30-110) U/L Lipase 84 (23-300) U/L Urine Color Urine Appearance (Clear) Urine pH (5.0-8.0) Ur Specific [place] (1.001-1.035) Urine Protein (Negative) Urine Glucose (UA) (Negative) Urine Ketones (Negative) Urine Blood (Negative) Urine Nitrite (Negative) Urine Bilirubin (Negative) Urine Urobilinogen (<2.0) mg/dL Ur Leukocyte Esterase (Negative) Urine RBC (0-5) /hpf Urine WBC (0-5) /hpf Ur Squamous Epith Cells (0-4) /hpf Amorphous Sediment (None) /hpf Urine Bacteria (None) /hpf Hyaline Casts (0-2) /lpf Urine Mucus (None) /hpf Urine HCG, Qual (Not Detectd) Disposition Clinical Impression: Vomiting Disposition: HOME SELF-CARE Condition: Good Instructions (If sedation given, give patient instructions): Acute Nausea and Vomiting (ED) Prescriptions: Ondansetron Odt [Zofran ODT] 4 mg PO Q8HR PRN #10 tab PRN Reason: Nausea Is patient prescribed a controlled substance at d/c from ED?: No Referrals: Nicho Campuzano MD [Primary Care Provider] - 1-2 days Time of Disposition: 07:20
[2021-11-13 07:58] VITALS: BP 113/69; PULSE 60; TEMP 98
== END 2021-11-13 07:57 | disposition home or self-care (01) ==
LOC: EC 00:41
DX: R11.2 Nausea with vomiting, unspecified (principal); J45.909 Unspecified asthma, uncomplicated; F17.209 Nicotine dependence, unspecified, with unspecified nicotine-induced disorders; Z91.030 Bee allergy status
CPT/HCPCS: 36415; 80053; 82150; 83690; 85025; 81001; 81025; 99284; 96365; 96366; 96361; 96375; J2405

== ENCOUNTER 2022-03-01 09:42 | Emergency (ER) | payer BC, OTHER ==
[2022-03-01 09:46] VITALS: TEMP 97.6
[2022-03-01] MEDS ORDERED: SODIUM CHLORIDE 0.9% 2,000 ML IV STA (11:26)
[2022-03-01] MEDS ORDERED: ONDANSETRON 4 MG/2 ML VIAL IVP STA (11:26)
--- NOTE | 2022-03-01 12:03 | ED ---
Nausea/Vomiting/Diarrhea HPI - General Chief complaint: Nausea/Vomiting/Diarrhea Stated complaint: Vomiting Time Seen by Provider: 03/01/22 11:16 Source: patient Mode of arrival: ambulatory Limitations: no limitations - History of Present Illness Initial comments: Patient is a 21-year-old female presenting with chief complaint of nausea and vomiting. Patient states symptoms have been ongoing since Tuesday. She admits to cramping abdominal pain located on the bilateral sides. She has been unable to tolerate oral intake. She also admits to dysuria, denies hematuria or flank pain. Denies fever or chills. No cough, congestion, sore throat, sinus pain or pressure. 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 - Related Data Home Medications Medication Instructions Recorded Confirmed ARIPiprazole [Abilify Maintena] 400 mg SQ QMONTHLY 10/03/20 03/01/22 Previous Rx's Medication Instructions Recorded Cephalexin [Keflex] 500 mg PO Q12HR 7 Days #14 cap 03/01/22 Ondansetron Odt [Zofran Odt] 4 mg PO Q8HR PRN #20 tab 03/01/22 Allergies Allergy/AdvReac Type Severity Reaction Status Date / Time venom-honey bee Allergy Swelling Verified 03/01/22 13:52 [bee venom (honey bee)] Review of Systems ROS Statement: Those systems with pertinent positive or pertinent negative responses have been documented in the HPI. ROS Other: All systems not noted in ROS Statement are negative. 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 Then blood levels came back and lowered, didnkatharine feel high enough to keep on the synthroid. Off of synthroid since she was about 9 y/o. History of Any Multi-Drug Resistant Organisms: None Reported Past Surgical History: No Surgical Hx Reported Additional Past Surgical History / Comment(s): PT HAD BEEN IN HOSPITAL COUPLE TIMES AND WAS DX WITH ASTHMA IN 2006. PT HAS HX OF AN ENDOSCOPY AT [facility] AND DID FINE WITH ANESTHESIA Past Anesthesia/Blood Transfusion Reactions: No Reported Reaction Additional Past Anesthesia/Blood Transfusion Reaction / Comment(s): NO BLOOD TRANSFUSION Past Psychological History: ADD/ADHD Smoking Status: Vaper Past Alcohol Use History: Occasional Past Drug Use History: Marijuana - Past Family History Brother(s) Family Medical History: Asthma Additional Family Medical History / Comment(s): BIO BROTHER WAS DX W/ASTHMA BUT GREW OUT OF IT BY AGE 3. General Exam Limitations: no limitations General appearance: alert, in no apparent distress Head exam: Present: atraumatic, normocephalic, normal inspection Eye exam: Present: normal appearance, PERRL, EOMI. Absent: scleral icterus, conjunctival injection, periorbital swelling Neck exam: Present: normal inspection Respiratory exam: Present: normal lung sounds bilaterally. Absent: respiratory distress, wheezes, rales, rhonchi, stridor Cardiovascular Exam: Present: regular rate, normal rhythm, normal heart sounds. Absent: systolic murmur, diastolic murmur, rubs, gallop, clicks GI/Abdominal exam: Present: soft, tenderness. Absent: distended, guarding, rebound, rigid Neurological exam: Present: alert, oriented X3, CN II-XII intact Psychiatric exam: Present: normal affect, normal mood Skin exam: Present: warm, dry, intact, normal color. Absent: rash Course Vital Signs 03/01/22 03/01/22 09:44 14:25 Temperature 97.6 F Pulse Rate 60 86 Respiratory 20 16 Rate Blood Pressure 126/84 130/86 O2 Sat by Pulse 99 98 Oximetry Medical Decision Making - Medical Decision Making Patient is a 21-year-old female presenting with chief complaint of nausea and vomiting. Patient has been seen in our ER also times for cannabinoid induced hyperemesis. Symptoms have been ongoing for 2 days. Patient also admits to dysuria. Lab work shows evidence of UTI, patient will be treated with Keflex. Patient tested positive for Covid. Symptoms responded well to Haldol and Benadryl. Educated on marijuana cessation. Educated on supportive treatment and quarantine guidelines with Covid. Follow-up with PCP. Report back to ER with any new or worsening symptoms. Discussed return parameters and answered all questions. Patient conveyed verbal understanding and agreed to the plan. I discussed this case in detail with my attending Dr. Oro. - Lab Data Result diagrams: 03/01/22 11:52 03/01/22 11:52 Lab Results 03/01/22 03/01/22 03/01/22 Range/Units 11:52 11:52 11:52 WBC 10.5 (3.8-10.6) k/uL RBC 4.77 (3.80-5.40) m/uL Hgb 14.7 (11.4-16.0) gm/dL Hct 41.7 (34.0-46.0) % MCV 87.6 (80.0-100.0) fL MCH 30.8 (25.0-35.0) pg MCHC 35.2 (31.0-37.0) g/dL RDW 13.2 (11.5-15.5) % Plt Count 287 (150-450) k/uL MPV 8.8 Neutrophils % 80 % Lymphocytes % 13 % Monocytes % 4 % Eosinophils % 1 % Basophils % 0 % Neutrophils # 8.4 H (1.3-7.7) k/uL Lymphocytes # 1.3 (1.0-4.8) k/uL Monocytes # 0.4 (0-1.0) k/uL Eosinophils # 0.1 (0-0.7) k/uL Basophils # 0.0 (0-0.2) k/uL Sodium 139 (137-145) mmol/L Potassium 4.0 (3.5-5.1) mmol/L Chloride 99 (98-107) mmol/L Carbon Dioxide 22 (22-30) mmol/L Anion Gap 18 mmol/L BUN 18 H (7-17) mg/dL Creatinine 0.57 (0.52-1.04) mg/dL Est GFR (CKD-EPI)AfAm >90 (>60 ml/min/1.73 sqM) Est GFR (CKD-EPI)NonAf >90 (>60 ml/min/1.73 sqM) Glucose 96 (74-99) mg/dL Plasma Lactic Acid Jonny 1.5 (0.7-2.0) mmol/L Calcium 9.9 (8.4-10.2) mg/dL Total Bilirubin 0.8 (0.2-1.3) mg/dL AST 26 (14-36) U/L ALT 18 (4-34) U/L Alkaline Phosphatase 69 (38-126) U/L Total Protein 8.1 (6.3-8.2) g/dL Albumin 5.4 H (3.5-5.0) g/dL Amylase 54 (30-110) U/L Lipase 94 (23-300) U/L Urine Color Urine Appearance (Clear) Urine pH (5.0-8.0) Ur Specific [place] (1.001-1.035) Urine Protein (Negative) Urine Glucose (UA) (Negative) Urine Ketones (Negative) Urine Blood (Negative) Urine Nitrite (Negative) Urine Bilirubin (Negative) Urine Urobilinogen (<2.0) mg/dL Ur Leukocyte Esterase (Negative) Urine RBC (0-5) /hpf Urine WBC (0-5) /hpf Ur Squamous Epith Cells (0-4) /hpf Amorphous Sediment (None) /hpf Urine Bacteria (None) /hpf Urine Mucus (None) /hpf Urine HCG, Qual (Not Detectd) Coronavirus (PCR) (Not Detectd) 03/01/22 03/01/22 03/01/22 Range/Units 12:38 12:38 12:38 WBC (3.8-10.6) k/uL RBC (3.80-5.40) m/uL Hgb (11.4-16.0) gm/dL Hct (34.0-46.0) % MCV (80.0-100.0) fL MCH (25.0-35.0) pg MCHC (31.0-37.0) g/dL RDW (11.5-15.5) % Plt Count (150-450) k/uL MPV Neutrophils % % Lymphocytes % % Monocytes % % Eosinophils % % Basophils % % Neutrophils # (1.3-7.7) k/uL Lymphocytes # (1.0-4.8) k/uL Monocytes # (0-1.0) k/uL Eosinophils # (0-0.7) k/uL Basophils # (0-0.2) k/uL Sodium (137-145) mmol/L Potassium (3.5-5.1) mmol/L Chloride (98-107) mmol/L Carbon Dioxide (22-30) mmol/L Anion Gap mmol/L BUN (7-17) mg/dL Creatinine (0.52-1.04) mg/dL Est GFR (CKD-EPI)AfAm (>60 ml/min/1.73 sqM) Est GFR (CKD-EPI)NonAf (>60 ml/min/1.73 sqM) Glucose (74-99) mg/dL Plasma Lactic Acid Jonny (0.7-2.0) mmol/L Calcium (8.4-10.2) mg/dL Total Bilirubin (0.2-1.3) mg/dL AST (14-36) U/L ALT (4-34) U/L Alkaline Phosphatase (38-126) U/L Total Protein (6.3-8.2) g/dL Albumin (3.5-5.0) g/dL Amylase (30-110) U/L Lipase (23-300) U/L Urine Color Yellow Urine Appearance Cloudy H (Clear) Urine pH 6.0 (5.0-8.0) Ur Specific [place] 1.033 (1.001-1.035) Urine Protein 1+ H (Negative) Urine Glucose (UA) Negative (Negative) Urine Ketones 4+ H (Negative) Urine Blood Trace H (Negative) Urine Nitrite Negative (Negative) Urine Bilirubin Negative (Negative) Urine Urobilinogen <2.0 (<2.0) mg/dL Ur Leukocyte Esterase Moderate H (Negative) Urine RBC 23 H (0-5) /hpf Urine WBC 30 H (0-5) /hpf Ur Squamous Epith Cells 13 H (0-4) /hpf Amorphous Sediment Rare H (None) /hpf Urine Bacteria Rare H (None) /hpf Urine Mucus Many H (None) /hpf Urine HCG, Qual Not Detected (Not Detectd) Coronavirus (PCR) Detected A (Not Detectd) Disposition Clinical Impression: COVID, UTI (urinary tract infection), Cannabinoid hyperemesis syndrome Disposition: HOME SELF-CARE Condition: Fair Instructions (If sedation given, give patient instructions): Urinary Tract Infection in Women (ED), Acute Nausea and Vomiting (ED), COVID-19 (Coronavirus Disease 2019) (ED) Additional Instructions: Follow-up with PCP. Report back to ER with any new or worsening symptoms. Take medication as prescribed. Prescriptions: Cephalexin [Keflex] 500 mg PO Q12HR 7 Days #14 cap Ondansetron Odt [Zofran Odt] 4 mg PO Q8HR PRN #20 tab PRN Reason: Nausea Is patient prescribed a controlled substance at d/c from ED?: No Referrals: Giancarlo Aguilar MD [Primary Care Provider] - 1-2 days Time of Disposition: 13:56
[2022-03-01 12:21] LABS: ALT 18 U/L (4-34); AST 26 U/L (14-36); African American GFR (CKD) >90 (>60 ml/min/1.73 sqM); Albumin 5.4 g/dL (3.5-5.0); Alkaline Phosphatase 69 U/L (38-126); Amylase 54 U/L (30-110); Anion Gap 18 mmol/L; Blood Urea Nitrogen 18 mg/dL (7-17); Calcium 9.9 mg/dL (8.4-10.2); Carbon Dioxide 22 mmol/L (22-30); Chloride 99 mmol/L (98-107); Glucose 96 mg/dL (74-99); Lipase 94 U/L (23-300); Non-African American GFR(CKD) >90 (>60 ml/min/1.73 sqM); Sodium 139 mmol/L (137-145); Total Bilirubin 0.8 mg/dL (0.2-1.3); Total Protein 8.1 g/dL (6.3-8.2)
[2022-03-01 12:25] LABS: Basophils % (A) 0 %; Eosinophils # (A) 0.1 k/uL (0-0.7); Eosinophils % (A) 1 %; HCT 41.7 % (34.0-46.0); HGB 14.7 gm/dL (11.4-16.0); Lymphocytes # (A) 1.3 k/uL (1.0-4.8); Lymphocytes % (A) 13 %; MCH 30.8 pg (25.0-35.0); MCHC 35.2 g/dL (31.0-37.0); MCV 87.6 fL (80.0-100.0); Mean Platelet Volume 8.8; Monocytes # (A) 0.4 k/uL (0-1.0); Monocytes % (A) 4 %; Neutrophils # (A) 8.4 k/uL (1.3-7.7); Neutrophils % (A) 80 %; Platelet Count 287 k/uL (150-450); RBC 4.77 m/uL (3.80-5.40); RDW 13.2 % (11.5-15.5); WBC 10.5 k/uL (3.8-10.6)
[2022-03-01] MEDS ORDERED: KETOROLAC 15 MG/ML 1 ML VIAL IVP STA (12:40)
[2022-03-01 12:57] LABS: Amorphous Sediment,Urine Rare /hpf; Appearance,Urine Cloudy (Clear); Bacteria,Urine Rare /hpf; Bilirubin,Urine Negative (Negative); Blood,Urine Trace (Negative); Color,Urine Yellow; Glucose,Urine (UA) Negative (Negative); Ketones,Urine 4+ (Negative); Leukocyte Esterase,Urine Moderate (Negative); Mucus,Urine Many /hpf; Nitrite,Urine Negative (Negative); Protein,Urine 1+ (Negative); RBC,Urine 23 /hpf (0-5); Specific Gravity,Urine 1.033 (1.001-1.035); Squamous Epithelial Cell,Urine 13 /hpf (0-4); Urobilinogen,Urine <2.0 mg/dL (<2.0); WBC,Urine 30 /hpf (0-5)
[2022-03-01] MEDS ORDERED: HALOPERIDOL LACTATE 5 MG/ML 1 ML VIAL IVP STA (13:08)
[2022-03-01] MEDS ORDERED: diphenhydrAMINE 50 MG/ML 1 ML VIAL IVP STA (13:10)
[2022-03-01] MEDS ORDERED: HALOPERIDOL LACTATE 5 MG/ML 1 ML VIAL IM STA (13:15)
[2022-03-01] MEDS ORDERED: SODIUM CHLORIDE 0.9% 1,000 ML IV SCH (13:15)
[2022-03-01 14:26] VITALS: BP 130/86; PULSE 86; RESP 16
== END 2022-03-01 14:27 | disposition home or self-care (01) ==
LOC: EC 09:42
DX: U07.1 COVID-19 (principal); N39.0 Urinary tract infection, site not specified; R11.2 Nausea with vomiting, unspecified; J45.909 Unspecified asthma, uncomplicated; F17.290 Nicotine dependence, other tobacco product, uncomplicated; F12.90 Cannabis use, unspecified, uncomplicated; Z91.030 Bee allergy status; Z79.899 Other long term (current) drug therapy
CPT/HCPCS: 36415; 80053; 82150; 83605; 83690; 85025; 81001; 81025; 87086; 87635; 99284; 96374; 96375 ×2; 96372; 96361 ×2; J1200; J1630; J2405; J1885

== ENCOUNTER 2023-06-23 19:40 | Emergency (ER) | payer BC, OTHER ==
[2023-06-23 20:02] VITALS: RESP 18
[2023-06-23 21:02] LABS: Appearance,Urine Cloudy (Clear); Bacteria,Urine Few /hpf; Bilirubin,Urine Negative (Negative); Blood,Urine Negative (Negative); Color,Urine Yellow; Glucose,Urine (UA) Trace (Negative); Ketones,Urine 4+ (Negative); Leukocyte Esterase,Urine Moderate (Negative); Mucus,Urine Many /hpf; Nitrite,Urine Negative (Negative); Protein,Urine 1+ (Negative); RBC,Urine 10 /hpf (0-5); Specific Gravity,Urine 1.033 (1.001-1.035); Squamous Epithelial Cell,Urine 36 /hpf (0-4); Urobilinogen,Urine <2.0 mg/dL (<2.0); WBC,Urine 39 /hpf (0-5)
[2023-06-23] MEDS: ONDANSETRON 4 MG/2 ML VIAL IVP STA (21:08)
[2023-06-23] MEDS: SODIUM CHLORIDE 0.9% 1,000 ML IV ONE ×2 (21:09→22:25)
--- NOTE | 2023-06-23 21:40 | ED ---
Nausea/Vomiting/Diarrhea HPI - General Chief complaint: Nausea/Vomiting/Diarrhea Stated complaint: Vomiting, Early Time Seen by Provider: 06/23/23 20:38 Source: patient Mode of arrival: ambulatory Limitations: no limitations - History of Present Illness Initial comments: 23-year-old female presenting with chief complaint of nausea and vomiting. Patient is a G1, P0 currently about 6 weeks LMP 05/05/2023. She states that nausea vomiting has been ongoing since 0200 this morning. She admits to pelvic pain. No vaginal bleeding. She also admits to generalized bodyaches. No dysuria or hematuria. Admits to chills with no fever. No hematemesis. No diarrhea. Admits to slight cough. - Related Data Home Medications Medication Instructions Recorded Confirmed ARIPiprazole [Abilify Maintena] 400 mg SQ QMONTHLY 10/03/20 03/01/22 Previous Rx's Medication Instructions Recorded Cephalexin [Keflex] 500 mg PO Q12HR 7 Days #14 cap 03/01/22 Ondansetron Odt [Zofran Odt] 4 mg PO Q8HR PRN #20 tab 03/01/22 Ondansetron Odt [Zofran Odt] 4 mg PO Q8HR PRN #20 tab 06/23/23 Vit No.179/Iron/Folic 1 each PO DAILY #30 tab 06/23/23 [ Tablet] Cephalexin [Keflex] 500 mg PO Q12HR 5 Days #10 cap 06/24/23 Allergies Allergy/AdvReac Type Severity Reaction Status Date / Time venom-honey bee Allergy Swelling Verified 03/01/22 13:52 [bee venom (honey bee)] Review of Systems ROS Statement: Those systems with pertinent positive or pertinent negative responses have been documented in the HPI. ROS Other: All systems not noted in ROS Statement are negative. 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 Then blood levels came back and lowered, Dr. enriquez feel high enough to keep on the synthroid. Off of synthroid since she was about 9 y/o. History of Any Multi-Drug Resistant Organisms: None Reported Past Surgical History: No Surgical Hx Reported Additional Past Surgical History / Comment(s): PT HAD BEEN IN HOSPITAL COUPLE TIMES AND WAS DX WITH ASTHMA IN 2006. PT HAS HX OF AN ENDOSCOPY AT [facility] AND DID FINE WITH ANESTHESIA Past Anesthesia/Blood Transfusion Reactions: No Reported Reaction Additional Past Anesthesia/Blood Transfusion Reaction / Comment(s): NO BLOOD TRANSFUSION Past Psychological History: ADD/ADHD Smoking Status: Vaper Past Alcohol Use History: Occasional Past Drug Use History: Marijuana - Past Family History Brother(s) Family Medical History: Asthma Additional Family Medical History / Comment(s): BIO BROTHER WAS DX W/ASTHMA BUT GREW OUT OF IT BY AGE 3. General Exam Limitations: no limitations General appearance: alert, in no apparent distress Head exam: Present: atraumatic, normocephalic Eye exam: Present: normal appearance, EOMI Neck exam: Present: normal inspection Respiratory exam: Present: normal lung sounds bilaterally. Absent: respiratory distress, wheezes, rales, rhonchi, stridor Cardiovascular Exam: Present: normal rhythm, tachycardia, normal heart sounds. Absent: systolic murmur, diastolic murmur, rubs, gallop, clicks GI/Abdominal exam: Present: soft. Absent: distended, tenderness, guarding, rebound, rigid Neurological exam: Present: alert, oriented X3 Psychiatric exam: Present: normal affect, normal mood Skin exam: Present: warm, dry Course Vital Signs 06/23/23 06/23/23 06/24/23 19:43 22:32 00:00 Temperature 98.4 F 99.7 F H 98.6 F Pulse Rate 112 H 112 H 98 Respiratory 18 18 18 Rate Blood Pressure 113/67 117/67 96/52 O2 Sat by Pulse 98 96 97 Oximetry Medical Decision Making - Medical Decision Making Was pt. sent in by a medical professional or institution (, PA, ORACLE DATABASE MANAGER, urgent care, hospital, or residential...) When possible be specific @ -No Did you speak to anyone other than the patient for history (EMS, parent, family, police, friend...)? What history was obtained from this source @ -No Did you review nursing and triage notes (agree or disagree)? Why? @ -I reviewed and agree with nursing and triage notes Were old charts reviewed (outside hosp., previous admission, EMS record, old EKG, old radiological studies, urgent care reports/EKG's, residential records)? Report findings @ -No old charts were reviewed Differential Diagnosis (chest pain, altered mental status, abdominal pain women, abdominal pain men, vaginal bleeding, weakness, fever, dyspnea, syncope, headache, dizziness, GI bleed, back pain, seizure, CVA, palpatations, mental health, musculoskeletal)? @ -Differential includes hyperemesis gravidarum, gastroenteritis, marijuana induced cyclical vomiting, this is not an all-inclusive list EKG interpreted by me (3pts min.). @ -As above X-rays interpreted by me (1pt min.). @ -None done CT interpreted by me (1pt min.). @ -None done U/S interpreted by me (1pt. min.). @ -Ultrasound shows single live intrauterine with calculated ultrasound age of 6 weeks 0 days What testing was considered but not performed or refused? (CT, X-rays, U/S, labs)? Why? @ -None What meds were considered but not given or refused? Why? @ -None Did you discuss the management of the patient with other professionals (blanca schofield i.eAbeba Lo, PA, ORACLE DATABASE MANAGER, lab, RT, psych nurse, administrator social welfare, ladle patcher, teacher, tactical response group officer, case reviewer)? Give summary @ -No Was smoking cessation discussed for >3mins.? @ -No Was critical care preformed (if so, how long)? @ -No Were there social determinants of health that impacted care today? How? (Homelessness, low income, unemployed, alcoholism, drug addiction, transportation, low edu. Level, literacy, decrease access to med. care, alf, rehab)? @ -No Was there de-escalation of care discussed even if they declined (Discuss DNR or withdrawal of care, Hospice)? DNR status @ -No What co-morbidities impacted this encounter? (DM, HTN, Smoking, COPD, CAD, Cancer, CVA, ARF, Chemo, Hep., AIDS, mental health diagnosis, sleep apnea, morbid obesity)? @ -None Was patient admitted / discharged? Hospital course, mention meds given and route, prescriptions, significant lab abnormalities, going to OR and other pertinent info. @ -23-year-old female 6 weeks presenting with chief complaint of nausea vomiting ongoing since 2:00 this morning. History and physical exam are conducted. WBC 11.5, likely reactive. Sodium 136 carbon dioxide 20, patient is receiving IV fluids. Urine shows 4+ ketones due to dehydration. There are moderate leukocytes, however there is also 36 squamous epithelial cells. She is negative for influenza, RSV, and COVID. Ultrasound shows single live intrauterine gestation measuring 6 weeks. hCG 98185.5. Patient reports improvement after antiemetics and IV hydration. She is able to tolerate oral intake. She states that she has plans to follow-up with Dr. Holman. Patient is sent antiemetics, vitamin, and Keflex for asymptomatic bacteria. Discharged home. Follow-up with PCP. Report back to ER with any new or worsening symptoms. Discussed return parameters and answered all questions. Patient conveyed verbal understanding and agreed to the plan. I discussed this case in detail with my attending Dr. Taylor Undiagnosed new problem with uncertain prognosis? @ -No Drug Therapy requiring intensive monitoring for toxicity (Heparin, Nitro, Insulin, Cardizem)? @ -No Were any procedures done? @ -No Diagnosis/symptom? @ -Nausea vomiting in , threatened miscarriage Acute, or Chronic, or Acute on Chronic? @ -Acute Uncomplicated (without systemic symptoms) or Complicated (systemic symptoms)? @ -Uncomplicated Side effects of treatment? @ -No Exacerbation, Progression, or Severe Exacerbation? @ -No Poses a threat to life or bodily function? How? (Chest pain, USA, MD, pneumonia, PE, COPD, DKA, ARF, appy, cholecystitis, CVA, Diverticulitis, Homicidal, Suicidal, threat to staff... and all critical care pts) @ -No - Lab Data Result diagrams: 06/23/23 20:57 06/23/23 20:57 Lab Results 06/23/23 06/23/23 06/23/23 Range/Units 19:50 20:17 20:17 WBC (3.8-10.6) k/uL RBC (3.80-5.40) m/uL Hgb (11.4-16.0) gm/dL Hct (34.0-46.0) % MCV (80.0-100.0) fL MCH (25.0-35.0) pg MCHC (31.0-37.0) g/dL RDW (11.5-15.5) % Plt Count (150-450) k/uL MPV Neutrophils % % Lymphocytes % % Monocytes % % Eosinophils % % Basophils % % Neutrophils # (1.3-7.7) k/uL Lymphocytes # (1.0-4.8) k/uL Monocytes # (0-1.0) k/uL Eosinophils # (0-0.7) k/uL Basophils # (0-0.2) k/uL Sodium (137-145) mmol/L Potassium (3.5-5.1) mmol/L Chloride (98-107) mmol/L Carbon Dioxide (22-30) mmol/L Anion Gap mmol/L BUN (7-17) mg/dL Creatinine (0.52-1.04) mg/dL Est GFR (CKD-EPI)AfAm (>60 ml/min/1.73 sqM) Est GFR (CKD-EPI)NonAf (>60 ml/min/1.73 sqM) Glucose (74-99) mg/dL Calcium (8.4-10.2) mg/dL Total Bilirubin (0.2-1.3) mg/dL AST (14-36) U/L ALT (4-34) U/L Alkaline Phosphatase (38-126) U/L Total Protein (6.3-8.2) g/dL Albumin (3.5-5.0) g/dL HCG, Quant mIU/mL Urine Color Yellow Urine Appearance Cloudy H (Clear) Urine pH 6.0 (5.0-8.0) Ur Specific [place] 1.033 (1.001-1.035) Urine Protein 1+ H (Negative) Urine Glucose (UA) Trace H (Negative) Urine Ketones 4+ H (Negative) Urine Blood Negative (Negative) Urine Nitrite Negative (Negative) Urine Bilirubin Negative (Negative) Urine Urobilinogen <2.0 (<2.0) mg/dL Ur Leukocyte Esterase Moderate H (Negative) Urine RBC 10 H (0-5) /hpf Urine WBC 39 H (0-5) /hpf Ur Squamous Epith Cells 36 H (0-4) /hpf Urine Bacteria Few H (None) /hpf Urine Mucus Many H (None) /hpf Urine HCG, Qual Detected (Not Detectd) Influenza Type A (PCR) Not Detected (Not Detectd) Influenza Type B (PCR) Not Detected (Not Detectd) RSV (PCR) Not Detected (Not Detectd) SARS-CoV-2 (PCR) Not Detected (Not Detectd) 06/23/23 06/23/23 Range/Units 20:57 20:57 WBC 11.5 H (3.8-10.6) k/uL RBC 4.69 (3.80-5.40) m/uL Hgb 14.6 (11.4-16.0) gm/dL Hct 41.9 (34.0-46.0) % MCV 89.5 (80.0-100.0) fL MCH 31.1 (25.0-35.0) pg MCHC 34.8 (31.0-37.0) g/dL RDW 12.7 (11.5-15.5) % Plt Count 300 (150-450) k/uL MPV 8.6 Neutrophils % 92 % Lymphocytes % 6 % Monocytes % 2 % Eosinophils % 1 % Basophils % 0 % Neutrophils # 10.5 H (1.3-7.7) k/uL Lymphocytes # 0.7 L (1.0-4.8) k/uL Monocytes # 0.2 (0-1.0) k/uL Eosinophils # 0.1 (0-0.7) k/uL Basophils # 0.0 (0-0.2) k/uL Sodium 136 L (137-145) mmol/L Potassium 4.1 (3.5-5.1) mmol/L Chloride 102 (98-107) mmol/L Carbon Dioxide 20 L (22-30) mmol/L Anion Gap 14 mmol/L BUN 11 (7-17) mg/dL Creatinine 0.45 L (0.52-1.04) mg/dL Est GFR (CKD-EPI)AfAm >90 (>60 ml/min/1.73 sqM) Est GFR (CKD-EPI)NonAf >90 (>60 ml/min/1.73 sqM) Glucose 112 H (74-99) mg/dL Calcium 9.9 (8.4-10.2) mg/dL Total Bilirubin 0.5 (0.2-1.3) mg/dL AST 23 (14-36) U/L ALT 20 (4-34) U/L Alkaline Phosphatase 68 (38-126) U/L Total Protein 7.9 (6.3-8.2) g/dL Albumin 5.0 (3.5-5.0) g/dL HCG, Quant 84348.5 mIU/mL Urine Color Urine Appearance (Clear) Urine pH (5.0-8.0) Ur Specific [place] (1.001-1.035) Urine Protein (Negative) Urine Glucose (UA) (Negative) Urine Ketones (Negative) Urine Blood (Negative) Urine Nitrite (Negative) Urine Bilirubin (Negative) Urine Urobilinogen (<2.0) mg/dL Ur Leukocyte Esterase (Negative) Urine RBC (0-5) /hpf Urine WBC (0-5) /hpf Ur Squamous Epith Cells (0-4) /hpf Urine Bacteria (None) /hpf Urine Mucus (None) /hpf Urine HCG, Qual (Not Detectd) Influenza Type A (PCR) (Not Detectd) Influenza Type B (PCR) (Not Detectd) RSV (PCR) (Not Detectd) SARS-CoV-2 (PCR) (Not Detectd) Disposition Clinical Impression: Vomiting during , Dehydration, Threatened Disposition: HOME SELF-CARE Condition: Good Instructions (If sedation given, give patient instructions): Threatened Miscarriage (ED), Nausea and Vomiting in (ED) Additional Instructions: Follow-up with MACHINIST OUTSIDE. Report back to ER with any new or worsening symptoms. Take medication as prescribed. Take Tylenol as needed for pain. Do not take ibuprofen (motrin) during Prescriptions: Cephalexin [Keflex] 500 mg PO Q12HR 5 Days #10 cap Vit No.179/Iron/Folic [ Tablet] 1 each PO DAILY #30 tab Ondansetron Odt [Zofran Odt] 4 mg PO Q8HR PRN #20 tab PRN Reason: Nausea Is patient prescribed a controlled substance at d/c from ED?: No Referrals: Dale Gutiérrez MD [Primary Care Provider] - 1-2 days Kelsey Holman DO [Doctor of Osteopathic Medicine] - 1-2 days Time of Disposition: 23:59
[2023-06-23 21:57] LABS: Basophils % (A) 0 %; Eosinophils # (A) 0.1 k/uL (0-0.7); Eosinophils % (A) 1 %; HCT 41.9 % (34.0-46.0); HGB 14.6 gm/dL (11.4-16.0); Lymphocytes # (A) 0.7 k/uL (1.0-4.8); Lymphocytes % (A) 6 %; MCH 31.1 pg (25.0-35.0); MCHC 34.8 g/dL (31.0-37.0); MCV 89.5 fL (80.0-100.0); Mean Platelet Volume 8.6; Monocytes # (A) 0.2 k/uL (0-1.0); Monocytes % (A) 2 %; Neutrophils # (A) 10.5 k/uL (1.3-7.7); Neutrophils % (A) 92 %; Platelet Count 300 k/uL (150-450); RBC 4.69 m/uL (3.80-5.40); RDW 12.7 % (11.5-15.5); WBC 11.5 k/uL (3.8-10.6)
[2023-06-23 21:59] LABS: ALT 20 U/L (4-34); AST 23 U/L (14-36); African American GFR (CKD) >90 (>60 ml/min/1.73 sqM); Alkaline Phosphatase 68 U/L (38-126); Anion Gap 14 mmol/L; Blood Urea Nitrogen 11 mg/dL (7-17); Calcium 9.9 mg/dL (8.4-10.2); Carbon Dioxide 20 mmol/L (22-30); Chloride 102 mmol/L (98-107); Glucose 112 mg/dL (74-99); Non-African American GFR(CKD) >90 (>60 ml/min/1.73 sqM); Potassium 4.1 mmol/L (3.5-5.1); Sodium 136 mmol/L (137-145); Total Bilirubin 0.5 mg/dL (0.2-1.3); Total Protein 7.9 g/dL (6.3-8.2)
--- NOTE | 2023-06-23 22:17 | US ---
EXAMINATION TYPE: Transabdominal DATE OF EXAM: 06/23/2023 9:50 PM COMPARISON: NONE CLINICAL INDICATION: Female, 23 years old with history of pelvic pain; Cramping x 2 weeks. No bleedin g. EXAM PERFORMED: Transvaginal (TV) and Transabdominal (TA) Pt did not tolerate transvaginal exam well so only OB related images taken. EXAM MEASUREMENTS: GESTATIONAL AGE / DATING Physician Established: Not yet established Dates by LMP: LMP unknown Dates by First Scan: No previous this is first scan Dates by Current Scan for: (6 weeks/0 days) EDC: 02/16/24 MATERNAL ANATOMY Uterus: 9.3 x 6.5 x 5.4cm Right Ovary: 3.4 x 2.5 x 1.7cm Left Ovary: 4.4 x 3.6 x 2.5cm Post CDS / Adnexa: wnl Presence of free fluid: No Presence of corpus luteal cyst: 2 cystic structures seen in lt ovary Presence of subchorionic bleed: No GESTATION / SURVEY CRL: 0.34cm (6 weeks/0 days) MSD: 1.67cm (6 weeks/0 days) Yolk Sac (normal less than 6mm): 3.4mm Heart Rate: 121 bpm Rhythm: Normal IUP: Viable IUP Date of LMP: unknown Beta HcG (if available): Pending Single live IUP seen measuring 6 weeks 0 days. IMPRESSION: Single live intrauterine with calculated ultrasound age of 6 weeks 0 days
[2023-06-23] MEDS: METOCLOPRAMIDE 5 MG/ML 2 ML VIAL IVP STA (22:24)
[2023-06-23 22:54] LABS: HCG,Quantitative Serum 63003.5 mIU/mL
[2023-06-23] MEDS: diphenhydrAMINE 50 MG/ML 1 ML VIAL IVP STA (23:32)
[2023-06-23] MEDS: ACETAMINOPHEN TAB 325 MG TAB PO STA (23:32)
[2023-06-24 00:21] VITALS: BP 96/52; PULSE 98; TEMP 98.6
== END 2023-06-24 00:09 | disposition home or self-care (01) ==
LOC: EC 19:40
DX: O20.0 Threatened abortion (principal); O21.9 Vomiting of pregnancy, unspecified; O99.281 Endocrine, nutritional and metabolic diseases complicating pregnancy, first trimester; E86.0 Dehydration; O99.511 Diseases of the respiratory system complicating pregnancy, first trimester; J45.909 Unspecified asthma, uncomplicated; O99.331 Smoking (tobacco) complicating pregnancy, first trimester; F17.290 Nicotine dependence, other tobacco product, uncomplicated; O99.321 Drug use complicating pregnancy, first trimester; F12.90 Cannabis use, unspecified, uncomplicated; Z20.822 Contact with and (suspected) exposure to COVID-19; Z3A.01 Less than 8 weeks gestation of pregnancy; Z91.030 Bee allergy status
CPT/HCPCS: 36415; 80053; 85025; 81001; 81025; 84702; 87636; 76801; 76817; 99284; 96374; 96375 ×2; 96361 ×2; J1200; J2765; J2405

== ENCOUNTER 2023-06-25 22:24 | Emergency (ER) | payer BC, OTHER ==
[2023-06-25 22:43] VITALS: RESP 16; TEMP 97.9
[2023-06-25] MEDS: ONDANSETRON 4 MG/2 ML VIAL IVP STA (23:05)
[2023-06-25] MEDS: SODIUM CHLORIDE 0.9% 1,000 ML IV ONE (23:05)
[2023-06-25 23:16] LABS: Basophils % (A) 0 %; Eosinophils % (A) 0 %; Lymphocytes # (A) 1.3 k/uL (1.0-4.8); Lymphocytes % (A) 15 %; MCH 30.4 pg (25.0-35.0); MCHC 34.1 g/dL (31.0-37.0); MCV 89.1 fL (80.0-100.0); Mean Platelet Volume 7.8; Monocytes # (A) 0.5 k/uL (0-1.0); Monocytes % (A) 6 %; Neutrophils # (A) 6.5 k/uL (1.3-7.7); Neutrophils % (A) 78 %; Platelet Count 299 k/uL (150-450); RBC 4.27 m/uL (3.80-5.40); RDW 12.5 % (11.5-15.5); WBC 8.4 k/uL (3.8-10.6)
--- NOTE | 2023-06-25 23:22 | ED ---
General Adult HPI - General Chief complaint: Dizziness Stated complaint: Syncope 6 weeks Time Seen by Provider: 06/25/23 22:30 Source: patient Mode of arrival: ambulatory Limitations: no limitations - History of Present Illness Initial comments: This patient is a 23-year-old woman who presents for evaluation for feeling lightheaded, having nausea and vomiting, starting earlier today. Patient has had similar episodes a number of times. She was seen here and diagnosed with cannabis related hyperemesis. Patient having very similar episode today. IN addition patient notes that she is approximately 6 weeks and has had occasional vomiting related to . Patient denies pain. No dyspnea or cough. No fevers noted. No change in bowel movements. No change in urination. No vaginal bleeding or discharge. Onset/Timin -: days(s) Severity scale (1-10): 0 Consistency: constant Improves with: none Worsens with: none Associated Symptoms: nausea/vomiting Treatments Prior to Arrival: none - Related Data Home Medications Medication Instructions Recorded Confirmed ARIPiprazole [Abilify Maintena] 400 mg SQ QMONTHLY 10/03/20 03/01/22 Previous Rx's Medication Instructions Recorded Cephalexin [Keflex] 500 mg PO Q12HR 7 Days #14 cap 03/01/22 Ondansetron Odt [Zofran Odt] 4 mg PO Q8HR PRN #20 tab 03/01/22 Ondansetron Odt [Zofran Odt] 4 mg PO Q8HR PRN #20 tab 06/23/23 Vit No.179/Iron/Folic 1 each PO DAILY #30 tab 06/23/23 [ Tablet] Cephalexin [Keflex] 500 mg PO Q12HR 5 Days #10 cap 06/24/23 Promethazine [Phenergan] 25 mg PO Q6HR PRN #12 tablet 06/26/23 Allergies Allergy/AdvReac Type Severity Reaction Status Date / Time venom-honey bee Allergy Swelling Verified 06/25/23 22:28 [bee venom (honey bee)] Review of Systems ROS Statement: Those systems with pertinent positive or pertinent negative responses have been documented in the HPI. ROS Other: All systems not noted in ROS Statement are negative. Constitutional: Denies: fever, chills Respiratory: Denies: cough, dyspnea Cardiovascular: Reports: syncope. Denies: chest pain, palpitations, edema Gastrointestinal: Reports: nausea, vomiting. 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 Then blood levels came back and lowered, didnkatharine feel high enough to keep on the synthroid. Off of synthroid since she was about 9 y/o. History of Any Multi-Drug Resistant Organisms: None Reported Past Surgical History: No Surgical Hx Reported Additional Past Surgical History / Comment(s): PT HAD BEEN IN HOSPITAL COUPLE TIMES AND WAS DX WITH ASTHMA IN 2006. PT HAS HX OF AN ENDOSCOPY AT [facility] AND DID FINE WITH ANESTHESIA Past Anesthesia/Blood Transfusion Reactions: No Reported Reaction Additional Past Anesthesia/Blood Transfusion Reaction / Comment(s): NO BLOOD TRANSFUSION Past Psychological History: ADD/ADHD Smoking Status: Vaper Past Alcohol Use History: Occasional Past Drug Use History: Marijuana - Past Family History Brother(s) Family Medical History: Asthma Additional Family Medical History / Comment(s): BIO BROTHER WAS DX W/ASTHMA INFANT BUT GREW OUT OF IT BY AGE 3. General Exam Limitations: no limitations General appearance: alert, in no apparent distress Head exam: Present: atraumatic, normocephalic Eye exam: Present: normal appearance. Absent: scleral icterus, conjunctival injection ENT exam: Present: mucous membranes dry Neck exam: Present: normal inspection, full ROM Respiratory exam: Present: normal lung sounds bilaterally. Absent: respiratory distress, wheezes, rales, rhonchi, stridor Cardiovascular Exam: Present: regular rate, normal rhythm, normal heart sounds. Absent: systolic murmur, diastolic murmur, rubs, gallop GI/Abdominal exam: Present: soft. Absent: distended, tenderness, guarding, rebound, rigid, mass Extremities exam: Present: normal inspection, normal capillary refill. Absent: pedal edema, calf tenderness Back exam: Present: normal inspection. Absent: CVA tenderness (R), CVA tenderness (L) Neurological exam: Present: alert Skin exam: Present: warm, dry, intact, normal color. Absent: rash Course Vital Signs 06/25/23 06/25/23 06/26/23 22:26 23:06 00:00 Temperature 97.9 F Pulse Rate 91 71 87 Respiratory 16 16 16 Rate Blood Pressure 113/71 99/62 117/79 O2 Sat by Pulse 96 97 98 Oximetry Medical Decision Making - Medical Decision Making Was pt. sent in by a medical professional or institution (, PAIGE, MORTGAGE PROCESSING MANAGER, urgent care, hospital, or custodial...) When possible be specific @ -[No] Did you speak to anyone other than the patient for history (EMS, parent, family, police, friend...)? What history was obtained from this source @ -[No] Did you review nursing and triage notes (agree or disagree)? Why? @ -[I reviewed and agree with nursing and triage notes] Were old charts reviewed (outside hosp., previous admission, EMS record, old EKG, old radiological studies, urgent care reports/EKG's, custodial records)? Report findings @ -[No old charts were reviewed] Differential Diagnosis (chest pain, altered mental status, abdominal pain women, abdominal pain men, vaginal bleeding, weakness, fever, dyspnea, syncope, headache, dizziness, GI bleed, back pain, seizure, CVA, palpatations, mental health, musculoskeletal)? @ -[Differential Abdominal Pain Women: Appendicitis, Cholecystitis, diverticulosis, ischemic bowel, pancreatitis, hepatitis, UTI, gastroenteritis, AAA, incarcerated hernia, bowel obstruction, constipation, inflammatory bowel, hepatitis, peptic ulcer disease, splenic infarction, perforated viscus, vulvitis, ovarian torsion, PID, kidney stone, placenta abruption, this is not meant to be an all-inclusive list EKG interpreted by me (3pts min.). @ -[As above] X-rays interpreted by me (1pt min.). @ -[None done] CT interpreted by me (1pt min.). @ -[None done] U/S interpreted by me (1pt. min.). @ -[None done] What testing was considered but not performed or refused? (CT, X-rays, U/S, labs)? Why? @ -[None] What meds were considered but not given or refused? Why? @ -[None] Did you discuss the management of the patient with other professionals (professionals i.e. , PA, MORTGAGE PROCESSING MANAGER, lab, RT, psych nurse, social media assistant, chemical plant operator supervisor, teacher, risk officer, trimming caser)? Give summary @ -[No] Was smoking cessation discussed for >3mins.? @ -[No] Was critical care preformed (if so, how long)? @ -[No] Were there social determinants of health that impacted care today? How? (Homelessness, low income, unemployed, alcoholism, drug addiction, transportation, low edu. Level, literacy, decrease access to med. care, fpc, rehab)? @ -[No] Was there de-escalation of care discussed even if they declined (Discuss DNR or withdrawal of care, Hospice)? DNR status @ -[No] What co-morbidities impacted this encounter? (DM, HTN, Smoking, COPD, CAD, Cancer, CVA, ARF, Chemo, Hep., AIDS, mental health diagnosis, sleep apnea, morbid obesity)? @ -[None] Was patient admitted / discharged? Hospital course, mention meds given and route, prescriptions, significant lab abnormalities, going to OR and other pertinent info. @ -[This patient is a 23-year-old woman here to have evaluation for nausea and vomiting. The patient did feel better following fluid and medication. Reviewed the results and discussed appropriate further care and follow-up as well as return parameters. Undiagnosed new problem with uncertain prognosis? @ -[No] Drug Therapy requiring intensive monitoring for toxicity (Heparin, Nitro, Insulin, Cardizem)? @ -[No] Were any procedures done? @ -[No] Diagnosis/symptom? @ -[Acute nausea and vomiting in early Mild hypokalemia Acute, or Chronic, or Acute on Chronic? @ -[Acute Uncomplicated (without systemic symptoms) or Complicated (systemic symptoms)? @ -[Uncomplicated Side effects of treatment? @ -[No] Exacerbation, Progression, or Severe Exacerbation? @ -[No] Poses a threat to life or bodily function? How? (Chest pain, USA, ME, pneumonia, PE, COPD, DKA, ARF, appy, cholecystitis, CVA, Diverticulitis, Homicidal, Suicidal, threat to staff... and all critical care pts) @ -[No] - Lab Data Result diagrams: 06/25/23 23:03 06/25/23 23:03 Lab Results 06/25/23 06/25/23 Range/Units 23:03 23:03 WBC 8.4 (3.8-10.6) k/uL RBC 4.27 (3.80-5.40) m/uL Hgb 13.0 (11.4-16.0) gm/dL Hct 38.0 (34.0-46.0) % MCV 89.1 (80.0-100.0) fL MCH 30.4 (25.0-35.0) pg MCHC 34.1 (31.0-37.0) g/dL RDW 12.5 (11.5-15.5) % Plt Count 299 (150-450) k/uL MPV 7.8 Neutrophils % 78 % Lymphocytes % 15 % Monocytes % 6 % Eosinophils % 0 % Basophils % 0 % Neutrophils # 6.5 (1.3-7.7) k/uL Lymphocytes # 1.3 (1.0-4.8) k/uL Monocytes # 0.5 (0-1.0) k/uL Eosinophils # 0.0 (0-0.7) k/uL Basophils # 0.0 (0-0.2) k/uL Sodium 133 L (137-145) mmol/L Potassium 3.2 L (3.5-5.1) mmol/L Chloride 100 (98-107) mmol/L Carbon Dioxide 22 (22-30) mmol/L Anion Gap 11 mmol/L BUN 12 (7-17) mg/dL Creatinine 0.43 L (0.52-1.04) mg/dL Est GFR (CKD-EPI)AfAm >90 (>60 ml/min/1.73 sqM) Est GFR (CKD-EPI)NonAf >90 (>60 ml/min/1.73 sqM) Glucose 89 (74-99) mg/dL Calcium 9.0 (8.4-10.2) mg/dL Total Bilirubin 0.9 (0.2-1.3) mg/dL AST 19 (14-36) U/L ALT 14 (4-34) U/L Alkaline Phosphatase 60 (38-126) U/L Total Protein 7.0 (6.3-8.2) g/dL Albumin 4.5 (3.5-5.0) g/dL Disposition Clinical Impression: Vomiting during Disposition: HOME SELF-CARE Condition: Good Instructions (If sedation given, give patient instructions): Dizziness (ED) Prescriptions: Promethazine [Phenergan] 25 mg PO Q6HR PRN #12 tablet PRN Reason: Vomiting Is patient prescribed a controlled substance at d/c from ED?: No Referrals: Dale Gutiérrez MD [Primary Care Provider] - 1-2 days
[2023-06-25 23:23] LABS: ALT 14 U/L (4-34); AST 19 U/L (14-36); African American GFR (CKD) >90 (>60 ml/min/1.73 sqM); Albumin 4.5 g/dL (3.5-5.0); Alkaline Phosphatase 60 U/L (38-126); Anion Gap 11 mmol/L; Blood Urea Nitrogen 12 mg/dL (7-17); Carbon Dioxide 22 mmol/L (22-30); Chloride 100 mmol/L (98-107); Glucose 89 mg/dL (74-99); Non-African American GFR(CKD) >90 (>60 ml/min/1.73 sqM); Potassium 3.2 mmol/L (3.5-5.1); Sodium 133 mmol/L (137-145); Total Bilirubin 0.9 mg/dL (0.2-1.3)
[2023-06-25] MEDS: ACETAMINOPHEN TAB 325 MG TAB PO STA (23:32)
[2023-06-25] MEDS: diphenhydrAMINE 50 MG/ML 1 ML VIAL IVP STA (23:33)
[2023-06-26 00:14] VITALS: BP 117/79; PULSE 87
[2023-06-26] MEDS: POTASSIUM CHLORIDE ER 20 MEQ TAB.ER PO STA (01:05)
[2023-06-26] MEDS: MAG HYDROX/AL HYDROX/SIMETH 30 ML CUP PO PRN (01:12)
== END 2023-06-26 01:26 | disposition home or self-care (01) ==
LOC: EC 22:24
DX: O21.9 Vomiting of pregnancy, unspecified (principal); O99.511 Diseases of the respiratory system complicating pregnancy, first trimester; J45.909 Unspecified asthma, uncomplicated; O99.351 Diseases of the nervous system complicating pregnancy, first trimester; F90.9 Attention-deficit hyperactivity disorder, unspecified type; O99.331 Smoking (tobacco) complicating pregnancy, first trimester; F17.290 Nicotine dependence, other tobacco product, uncomplicated; O99.321 Drug use complicating pregnancy, first trimester; F12.90 Cannabis use, unspecified, uncomplicated; Z91.030 Bee allergy status; Z79.899 Other long term (current) drug therapy; Z3A.01 Less than 8 weeks gestation of pregnancy
CPT/HCPCS: 36415; 80053; 85025; 99284; 96374; 96375; J1200; J2405

== ENCOUNTER → 2023-06-25 | Outpatient (CLI) | payer BC, OTHER | END | disposition home or self-care (01) | LOC: LABWHC1 10:35 | PROVIDERS: ATTEND Obstetrics & Gynecology Obstetrics | DX: O20.0 Threatened abortion (principal); Z3A.00 Weeks of gestation of pregnancy not specified | CPT/HCPCS: 36415; 84702 ==

== ENCOUNTER 2023-07-13 12:40 | Observation (INO) | payer BC, OTHER ==
[2023-07-13] MEDS: LACTATED RINGERS 1,000 ML IV SCH ×2 (13:00→14:04)
[2023-07-13 13:26] LABS: Basophils % (A) 0 %; Eosinophils # (A) 0.1 k/uL (0-0.7); Eosinophils % (A) 1 %; HCT 41.3 % (34.0-46.0); HGB 14.1 gm/dL (11.4-16.0); Lymphocytes # (A) 0.8 k/uL (1.0-4.8); Lymphocytes % (A) 9 %; MCH 30.6 pg (25.0-35.0); MCHC 34.1 g/dL (31.0-37.0); MCV 89.9 fL (80.0-100.0); Mean Platelet Volume 7.9; Monocytes # (A) 0.3 k/uL (0-1.0); Monocytes % (A) 3 %; Neutrophils # (A) 7.4 k/uL (1.3-7.7); Neutrophils % (A) 85 %; Platelet Count 311 k/uL (150-450); RDW 12.9 % (11.5-15.5); WBC 8.7 k/uL (3.8-10.6)
[2023-07-13 14:10] LABS: ALT 41 U/L (4-34); AST 48 U/L (14-36); African American GFR (CKD) >90 (>60 ml/min/1.73 sqM); Albumin 4.7 g/dL (3.5-5.0); Alkaline Phosphatase 68 U/L (38-126); Anion Gap 12 mmol/L; Blood Urea Nitrogen 12 mg/dL (7-17); Calcium 9.5 mg/dL (8.4-10.2); Carbon Dioxide 21 mmol/L (22-30); Chloride 101 mmol/L (98-107); Glucose 84 mg/dL (74-99); Non-African American GFR(CKD) >90 (>60 ml/min/1.73 sqM); Potassium 3.9 mmol/L (3.5-5.1); Sodium 134 mmol/L (137-145); Total Bilirubin 0.9 mg/dL (0.2-1.3); Total Protein 7.4 g/dL (6.3-8.2)
[2023-07-13 15:07] LABS: Appearance,Urine Cloudy (Clear); Bilirubin,Urine Negative (Negative); Blood,Urine Negative (Negative); Color,Urine Yellow; Glucose,Urine (UA) Negative (Negative); Ketones,Urine 4+ (Negative); Leukocyte Esterase,Urine Moderate (Negative); Mucus,Urine Many /hpf; Nitrite,Urine Negative (Negative); Protein,Urine 1+ (Negative); RBC,Urine 6 /hpf (0-5); Specific Gravity,Urine 1.026 (1.001-1.035); Squamous Epithelial Cell,Urine 18 /hpf (0-4); WBC,Urine 42 /hpf (0-5)
[2023-07-13 16:00] LABS: Amylase 62 U/L (30-110); Lipase 61 U/L (23-300)
[2023-07-13] MEDS: ACETAMINOPHEN IV (For NPO) 1,000 MG in EMPTY BAG 1 BAG IVPB SCH (16:24)
--- NOTE | 2023-07-13 17:28 | P.HPOB ---
History of Present Illness H&P Date: 07/13/23 Chief Complaint: IUP 9 weekausea/vomitting of 23 yo at 9 weeks of based on US today with noted n/v of . she states she has been unable to keep anything down for about 5 days. she has tried po zofran without relief of her nausea and vomiting. she was prescribed phenergan suppositories but hasnt picked them up yet. she denies any VB she has been seen multiple times for hydration and different hospitals. the last one said she had a UTI but she has been unable to keep down the antibiotic. Review of Systems Constitutional: Reports fatigue, Denies chills, Denies fever Ears, nose, mouth and throat: Denies headache Cardiovascular: Denies leg edema Respiratory: Denies dyspnea Gastrointestinal: Reports nausea, Reports vomiting Genitourinary: Reports Past Medical History Past Medical History: Asthma Additional Past Medical History / Comment(s): dx with anuja at 8-9 y/o on synthroid for a while and saw environmental health technologist. Then blood levels came back and lowered, didnt feel high enough to keep on the synthroid. Off of synthroid since she was about 9 y/o. History of Any Multi-Drug Resistant Organisms: None Reported Past Surgical History: No Surgical Hx Reported Additional Past Surgical History / Comment(s): PT HAD BEEN IN HOSPITAL COUPLE TIMES AND WAS DX WITH ASTHMA IN 2006. PT HAS HX OF AN ENDOSCOPY AT [facility] AND DID FINE WITH ANESTHESIA Past Anesthesia/Blood Transfusion Reactions: No Reported Reaction Additional Past Anesthesia/Blood Transfusion Reaction / Comment(s): NO BLOOD TRANSFUSION Smoking Status: Former smoker - Past Family History Brother(s) Family Medical History: Asthma Additional Family Medical History / Comment(s): BIO BROTHER WAS DX W/ASTHMA BUT GREW OUT OF IT BY AGE 3. Medications and Allergies Home Medications Medication Instructions Recorded Confirmed Type No Known Home Medications 07/13/23 07/13/23 History Allergies Allergy/AdvReac Type Severity Reaction Status Date / Time venom-honey bee Allergy Swelling Verified 07/13/23 13:11 [bee venom (honey bee)] Exam Osteopathic Statement: *. No significant issues noted on an osteopathic structural exam other than those noted in the History and Physical/Consult. Vital Signs Temp Pulse Resp BP Pulse Ox 07/13/23 13:09 98 F 92 18 117/72 97 Intake and Output 07/13/23 07/13/23 07/13/23 06:59 14:59 22:59 Other: Weight 51.256 kg target exam, ill appearing female in NAD, breathing is non labored, heart has a RRR Results Result Diagrams: 07/13/23 13:14 07/13/23 13:14 Abnormal Lab Results - Last 24 Hours (Table) 07/13/23 07/13/23 07/13/23 Range/Units 13:14 13:14 14:57 Lymphocytes # 0.8 L (1.0-4.8) k/uL Sodium 134 L (137-145) mmol/L Carbon Dioxide 21 L (22-30) mmol/L Creatinine 0.38 L (0.52-1.04) mg/dL AST 48 H (14-36) U/L ALT 41 H (4-34) U/L Urine Appearance Cloudy H (Clear) Urine Protein 1+ H (Negative) Urine Ketones 4+ H (Negative) Ur Leukocyte Esterase Moderate H (Negative) Urine RBC 6 H (0-5) /hpf Urine WBC 42 H (0-5) /hpf Ur Squamous Epith Cells 18 H (0-4) /hpf Urine Mucus Many H (None) /hpf Assessment and Plan (1) 9 weeks gestation of Current Visit: Yes Status: Acute Code(s): Z3A.09 - 9 WEEKS GESTATION OF SNOMED Code(s): 272267 (2) Nausea/vomiting in Current Visit: Yes Status: Acute Code(s): O21.9 - VOMITING OF , UNSPECIFIED SNOMED Code(s): 08761589 Plan: 23 yo at 9 weeks is admitted for IV hydration given her inability to tolerate po liquids. IVF begun, LR at 125 after a 1 L bolus, UA once able to urinate CBC, CMP phenergan suppositories vs IV zofran per pt choice.
--- NOTE | 2023-07-13 17:30 | P.PN ---
Progress Note - Text Progress Note Date: 07/13/23 labs reviewed with elevated LFTS, on discussion with the RN, she states she has had pain in her upper back for weeks now as well. will order amylase and lipase along with gallbladder US to r/o gallbladder disease. continue with IV hydration and antiemetic as needed. await gallbladder US for further recommendations. clear liquids for now until able to tolerate BRAT diet.
--- NOTE | 2023-07-13 17:34 | US ---
EXAMINATION TYPE: US gallbladder DATE OF EXAM: 07/13/2023 COMPARISON: US 2021 CLINICAL INDICATION: Female, 23 years old with history of pain, elevated liver enzymes, 9 weeks pregn ant; Elevated liver enzymes TECHNIQUE: Multiple sonographic images of the right upper quadrant are obtained. FINDINGS: EXAM MEASUREMENTS: Liver Length: 15.4 cm Gallbladder Wall: 0.2 cm CBD: 0.3 cm Right Kidney: 11.0 x 5.1 x 4.1 cm RAMP AGENT NOTES: Exam is limited due to gas. Pancreas: Limited visibility. Liver: Appears coarse in echotexture. Gallbladder: Appear wnl Evidence for sonographic Kaur's sign: No CBD: Appears wnl Right Kidney: Renal pelvis appears prominent. IMPRESSION: No evidence for acute process.
[2023-07-13] MEDS: ONDANSETRON 4 MG/2 ML VIAL IVP PRN (17:45)
[2023-07-13] MEDS: PROMETHAZINE SUPPOSITORY 12.5 MG SUPP RECTAL PRN (17:58)
[2023-07-13] MEDS ORDERED: diphenhydrAMINE 50 MG/ML 1 ML VIAL IVP PRN (19:24)
[2023-07-13] MEDS ORDERED: PROMETHAZINE SUPPOSITORY 12.5 MG SUPP RECTAL SCH (21:00)
[2023-07-14] MEDS: ceFAZolin 1 GM in DEXTROSE/WATER 1 50ML.BAG IVPB SCH (00:50)
[2023-07-14 07:27] LABS: ALT 49 U/L (4-34); AST 58 U/L (14-36)
--- NOTE | 2023-07-14 13:10 | P.PN ---
Progress Note - Text Progress Note Date: 07/14/23 Patient is feeling slightly improved this morning. Liver enzymes are slightly elevated this morning. Patient has noted no vomiting since last evening. She denies vaginal bleeding. Assessment IUP at 9 weeks Nausea and vomiting of Plan Continue IV fluids Antiemetics as needed Will repeat liver enzymes this evening, discontinue Tylenol products
[2023-07-14 17:16] LABS: ALT 42 U/L (4-34); AST 42 U/L (14-36)
[2023-07-15] MEDS ORDERED: ONDANSETRON 4 MG TAB PO PRN
[2023-07-15] MEDS: ONDANSETRON 4 MG TAB PO SCH (08:10)
[2023-07-15 08:52] VITALS: BP 130/87; PULSE 96; RESP 14; TEMP 98.7
--- NOTE | 2023-07-15 09:01 | P.DS ---
Providers Date of admission: 07/13/23 15:00 Expected date of discharge: 07/15/23 Attending physician: Kelsey Holman Primary care physician: Stated None - Discharge Diagnosis(es) (1) 9 weeks gestation of Current Visit: Yes Status: Acute (2) Nausea/vomiting in Current Visit: Yes Status: Acute (3) Elevated liver function tests Current Visit: Yes Status: Acute Hospital Course: 23-year-old 4 para 0-0-3-0 at approximately 9 weeks of that was admitted for nausea and vomiting of . Patient was seen in the office on Tuesday with complaints of increasing nausea and vomiting and inability to keep any food or water down. Patient at that time stated had been approximately 5 days without food. Patient was able to urinate and bring in a sample. Patient was sent to OB triage for IV hydration. On laboratory evaluation elevated liver function tests were noted along with ketones in the urine. The urine was suspicious for urinary tract infection and culture was ordered. Patient was hydrated with IV fluids and antiemetics were given. Patient to this hospital day #2 is tolerating some food and antiemetics are given scheduled. Patient is seeing good relief with Phenergan suppositories. Patient is nervous about going home and some concern about resources at home is made by the nurse. nutrition services associate is asked to see this patient prior to discharge. Discharge instructions are reviewed with patient small meals, brat diet are reviewed. Patient is given prescriptions for Zofran to be taken 3 times daily and Phenergan suppositories in addition. Patient Condition at Discharge: Good Plan - Discharge Summary New Discharge Prescriptions: No Action No Known Home Medications Discharge Medication List No Known Home Medications 07/13/23 [History] Follow up Appointment(s)/Referral(s): Kelsey Holman DO [Doctor of Osteopathic Medicine] - 1 Week Activity/Diet/Wound Care/Special Instructions: Small meals throughout the day are encouraged, brat diet. Social work to see patient prior to discharge. Zofran prescription and Phenergan prescription is given to patient. Patient is to follow-up in 1 week for close follow-up. Discharge Disposition: HOME SELF-CARE
--- NOTE | 2023-07-15 10:09 | P.MSEPDOC ---
Presenting Problems - Arrival Data Date of Arrival on Unit: 07/13/23 Time of Arrival on Unit: 12:40 Mode of Transport: Portable - Complaint OB-Reason for Admission/Chief Complaint: Hyperemesis, Signs/Symptoms UTI Medical History - Information : 1 Para: 0 Term: 0 : 0 Abortions: Spontaneous or Elective: 0 Number of Living Children: 0 - Gestational Age Gestational Age by FRANCI (wks/days): 9 Weeks and 0 Days Review of Systems - Review of Systems Constitutional: Recent weight loss Breast: No problems ENT: No problems Cardiovascular: No problems Respiratory: No problems Gastrointestinal: No problems Genitourinary: Dysuria, Urgency, Increased frequency Musculoskeletal: No problems Neurological: Dizziness Skin: No problems Vital Signs - Temperature Temperature: 98.7 F Temperature Source: Oral - Pulse Right Brachial Pulse Rate: 96 Pulse Assessment Method: Automatic Cuff - Respirations Respiratory Rate: 14 Oxygen Delivery Method: Room Air - Blood Pressure Right Arm Blood Pressure: 130/87 Blood Pressure Mean: 101 Blood Pressure Source: Automatic Cuff Physician Notification - Physician Notified Physician Notified Date: 07/13/23 Physician Notified Time: 12:45 Physician: Kelsey Holman New Order Received: Yes (Written orders for UA IV hydration bloodwork) Maternal Triage Index - Maternal Triage Index Presenting for scheduled procedure w/no complaint: No - Stat/Priority 1 Stat Priority 1: No - Urgent/Priority 2 Urgent Priority 2: Yes Provider Notified: Kelsey Holman Provider Notified Time: 12:45 Criteria Met for Priority 2: 9 weeks, pain in left back 8/10 Disposition - Disposition OB Disposition: Admit, Triage Discharge Date: 07/15/23 Discharge Time: 09:45 I agree with the RN Medical Screening Exam: Yes Case reviewed; plan agreed upon as documented in EMR&OBIX.: Yes Diagnosis: RELATED CONDITIONS, UNSPECIFIED, FIRST TRIMESTER
== END 2023-07-15 09:45 | disposition home or self-care (01) ==
LOC: FBPOP 12:40 → 4FBP 15:00
PROVIDERS: ADMIT Obstetrics & Gynecology Obstetrics; ATTEND Obstetrics & Gynecology Obstetrics
DX: O21.9 Vomiting of pregnancy, unspecified (principal); O26.891 Other specified pregnancy related conditions, first trimester; R79.89 Other specified abnormal findings of blood chemistry; O99.511 Diseases of the respiratory system complicating pregnancy, first trimester; J45.909 Unspecified asthma, uncomplicated; Z3A.09 9 weeks gestation of pregnancy; Z87.891 Personal history of nicotine dependence
CPT/HCPCS: 96376 ×2; 96361 ×2; 96365; 96366 ×2; 96367; 96375; 80053; 82150; 83690; 84450; 84460; 85025; 81001; 87086; 76705; G0378 ×3; G0379; J0690 ×3; J2405; J0131 ×2; 96360

== ENCOUNTER 2023-10-10 20:05 | Outpatient (CLI) | payer BC, OTHER ==
[2023-10-10 21:36] LABS: Amorphous Sediment,Urine Rare /hpf; Appearance,Urine Cloudy (Clear); Bacteria,Urine Moderate /hpf; Bilirubin,Urine Negative (Negative); Blood,Urine Negative (Negative); Color,Urine Yellow; Glucose,Urine (UA) Negative (Negative); Ketones,Urine Negative (Negative); Leukocyte Esterase,Urine Large (Negative); Mucus,Urine Occasional /hpf; Nitrite,Urine Negative (Negative); Protein,Urine Trace (Negative); RBC,Urine 2 /hpf (0-5); Specific Gravity,Urine 1.019 (1.001-1.035); Squamous Epithelial Cell,Urine 3 /hpf (0-4); WBC,Urine 5 /hpf (0-5)
[2023-10-10 22:40] VITALS: BP 116/65; PULSE 106; RESP 18; TEMP 97.9
--- NOTE | 2023-10-24 09:35 | P.MSEPDOC ---
Presenting Problems - Arrival Data Date of Arrival on Unit: 10/10/23 Time of Arrival on Unit: 20:05 Mode of Transport: Ambulatory - Complaint OB-Reason for Admission/Chief Complaint: Pain Comment: left back, ar groin and down right leg, left breast states most intense is 5-6, currently 2-3/10 Medical History - Information : 1 Para: 0 Term: 0 : 0 Abortions: Spontaneous or Elective: 0 Number of Living Children: 0 - Gestational Age Gestational Age by FRANCI (wks/days): 21 Weeks and 5 Days Review of Systems - Review of Systems Constitutional: No problems Breast: No problems ENT: No problems Cardiovascular: No problems Respiratory: No problems Gastrointestinal: No problems Genitourinary: No problems Musculoskeletal: No problems Neurological: No problems Skin: No problems Vital Signs - Temperature Temperature: 97.9 F Temperature Source: Temporal Artery Scan - Pulse Right Pulse Rate: 106 Pulse Assessment Method: Pulse Oximetry - Respirations Respiratory Rate: 18 Oxygen Delivery Method: Room Air - Blood Pressure Right Arm Blood Pressure: 116/65 Blood Pressure Mean: 82 Blood Pressure Source: Automatic Cuff Medical Screen Scoring - Assessment - Baby A Baseline FHR: 135-145 Physician Notification - Physician Notified Physician Notified Date: 10/10/23 Physician Notified Time: 20:30 Physician: Kelsey Holman New Order Received: Yes (urinalysis) - Notification Comment Comment: [phone] called Manda with U/A results, okay to d/c to home Maternal Triage Index - Maternal Triage Index Presenting for scheduled procedure w/no complaint: No - Stat/Priority 1 Stat Priority 1: No - Urgent/Priority 2 Urgent Priority 2: No - Prompt/Priority 3 Prompt Priority 3: No - Non-Urgent/Priority 4 Non-Urgent Priority 4: Yes Criteria Met for Priority 4: common discomforts of Disposition - Disposition OB Disposition: Discharge to home Discharge Date: 10/10/23 Discharge Time: 21:46 I agree with the RN Medical Screening Exam: Yes Case reviewed; plan agreed upon as documented in EMR&OBIX.: Yes Diagnosis: RELATED CONDITIONS, UNSPECIFIED, SECOND TRIMESTER
== END 2023-10-10 21:46 | disposition home or self-care (01) ==
LOC: FBPOP 20:05
PROVIDERS: ATTEND Obstetrics & Gynecology Obstetrics
DX: O26.892 Other specified pregnancy related conditions, second trimester (principal); M54.9 Dorsalgia, unspecified; R10.30 Lower abdominal pain, unspecified; Z3A.21 21 weeks gestation of pregnancy; Z91.030 Bee allergy status
CPT/HCPCS: 81001; 99213

== ENCOUNTER 2024-02-08 17:16 | Outpatient (CLI) | payer BC, OTHER ==
[2024-02-08 19:07] VITALS: BP 125/71; PULSE 78; RESP 16; TEMP 98.2
--- NOTE | 2024-03-18 02:00 | P.MSEPDOC ---
Presenting Problems - Arrival Data Date of Arrival on Unit: 02/08/24 Time of Arrival on Unit: 17:16 Mode of Transport: Ambulatory - Complaint OB-Reason for Admission/Chief Complaint: Other Comment: Patient of Dr Holman presents to L&D stating she missed her appointment and wants to be checked to see what she's dialated. Patient denies feeling contractins. Denies bleeding or loss of fluid Medical History - Information : 1 Para: 0 Term: 0 : 0 Abortions: Spontaneous or Elective: 0 Number of Living Children: 0 - Gestational Age Gestational Age by FRANCI (wks/days): 39 Weeks and 0 Days Review of Systems - Review of Systems Constitutional: No problems Breast: No problems ENT: No problems Cardiovascular: No problems Respiratory: No problems Gastrointestinal: No problems Genitourinary: No problems Musculoskeletal: No problems Neurological: No problems Skin: No problems Vital Signs - Temperature Temperature: 98.2 F Temperature Source: Temporal Artery Scan - Pulse Pulse Oximetery Pulse Rate: 78 Pulse Assessment Method: Pulse Oximetry - Respirations Respiratory Rate: 16 Oxygen Delivery Method: Room Air O2 Sat by Pulse Oximetry: 100 - Blood Pressure Sitting Blood Pressure: 125/71 Blood Pressure Mean: 89 Blood Pressure Source: Automatic Cuff Medical Screen Scoring - Cervical Exam Dilation (cm): 0 Station: -2 Membranes: Intact - Uterine Contractions Frequency From (mins): 3 Frequency To (mins): 5 Duration From (seconds): 90 Duration To (seconds): 120 Intensity: Mild Resting: Soft to palpation - Assessment - Baby A Baseline FHR: 125 Heart Rate - NICHD Category: Category I (Normal) NST: Reactive Physician Notification - Physician Notified Physician Notified Date: 02/08/24 Physician Notified Time: 18:44 Physician: Laurent Mckinley New Order Received: Yes - Notification Comment Comment: call to Dr Mckinley, report given, no cervical change, contractions were noted but patient did not feel them, orders received to discharge patient home at this time. Patient to schedule appointment with Dr Holman Maternal Triage Index - Non-Urgent/Priority 4 Non-Urgent Priority 4: Yes Criteria Met for Priority 4: Patient of Dr Holman presents to L&D stating she missed her appointment and wants to be checked to see what she's dialated. Patient denies feeling contractins. Denies bleeding or loss of fluid Disposition - Disposition OB Disposition: Discharge to home Discharge Date: 02/08/24 Discharge Time: 19:00 I agree with the RN Medical Screening Exam: Yes Physician's MSE Comment: I have neither seen nor examined the patient. Case reviewed; plan agreed upon as documented in EMR&OBIX.: Yes Diagnosis: RELATED CONDITIONS, UNSPECIFIED, THIRD TRIMESTER
== END 2024-02-08 19:00 ==
LOC: FBPOP 17:16
PROVIDERS: ATTEND Obstetrics & Gynecology
CPT/HCPCS: 99213

== ENCOUNTER 2024-02-18 09:49 | Inpatient (IN) | payer BC, OTHER ==
[2024-02-18 10:41] LABS: Creatinine,Urine Random 61.3 mg/dL; Protein/Creatinine Ratio,Urine 3.083
[2024-02-18 10:45] LABS: Appearance,Urine Cloudy (Clear); Bacteria,Urine Few /hpf; Bilirubin,Urine Negative (Negative); Blood,Urine Trace (Negative); Color,Urine Colorless; Glucose,Urine (UA) Negative (Negative); Ketones,Urine Negative (Negative); Leukocyte Esterase,Urine Large (Negative); Mucus,Urine Occasional /hpf; Nitrite,Urine Negative (Negative); PH, Urine 7.5 (5.0-8.0); Protein,Urine 2+ (Negative); RBC,Urine 11 /hpf (0-5); Specific Gravity,Urine 1.015 (1.001-1.035); Squamous Epithelial Cell,Urine 3 /hpf (0-4); Urobilinogen,Urine <2.0 mg/dL (<2.0); WBC,Urine 24 /hpf (0-5)
[2024-02-18 10:46] LABS: Amphetamine Screen,Urine Not Detected (NotDetected); Barbiturate Screen,Urine Not Detected (NotDetected); Benzodiazepines Screen,Urine Not Detected (NotDetected); Cocaine Screen,Urine Not Detected (NotDetected); Methadone Screen, Urine Not Detected (NotDetected); Opiate Screen,Urine Not Detected (NotDetected); Oxycodone Screen, Urine Not Detected (NotDetected); Phencyclidine Screen,Urine Not Detected (NotDetected); Tricyclic Antidepressant,Urine Not Detected (NotDetected); Urn Cannabinoid Scrn Not Detected (NotDetected)
[2024-02-18 11:07] LABS: Basophils % (A) 0 %; Eosinophils # (A) 0.1 k/uL (0-0.7); Eosinophils % (A) 2 %; HCT 31.7 % (34.0-46.0); HGB 10.3 gm/dL (11.4-16.0); Lymphocytes # (A) 1.1 k/uL (1.0-4.8); Lymphocytes % (A) 16 %; MCH 28.4 pg (25.0-35.0); MCHC 32.5 g/dL (31.0-37.0); MCV 87.3 fL (80.0-100.0); Mean Platelet Volume 8.5; Monocytes # (A) 0.3 k/uL (0-1.0); Monocytes % (A) 5 %; Neutrophils # (A) 4.9 k/uL (1.3-7.7); Neutrophils % (A) 74 %; Platelet Count 290 k/uL (150-450); RBC 3.63 m/uL (3.80-5.40); RDW 14.8 % (11.5-15.5); WBC 6.6 k/uL (3.8-10.6)
[2024-02-18] MEDS: DINOPROSTONE 10 MG INSERT.ER VAGINAL ONE (11:10)
[2024-02-18 11:31] LABS: ALT 8 U/L (4-34); AST 15 U/L (14-36); African American GFR (CKD) >90 (>60 ml/min/1.73 sqM); Blood Urea Nitrogen 8 mg/dL (7-17); LDH 179 U/L (120-246); Non-African American GFR(CKD) >90 (>60 ml/min/1.73 sqM); Uric Acid 4.3 mg/dL (3.7-7.4)
[2024-02-18] MEDS ORDERED: TERBUTALINE 1 MG/ML VIAL SQ PRN (11:55)
[2024-02-18] MEDS ORDERED: LIDOCAINE 0.5% (PF) 5 MG/ML (50 ML SDV) SQ PRN (11:55)
[2024-02-18] MEDS ORDERED: METHYLERGONOVINE 0.2 MG/ML 1 ML AMP IM PRN (11:55)
[2024-02-18] MEDS ORDERED: CARBOPROST TROMETHAMINE 250 MCG/ML 1 ML AMP IM PRN (11:55)
[2024-02-18] MEDS ORDERED: TRANEXAMIC 1,000 MG/100ML-NACL 1,000 MG in EMPTY BAG 1 BAG IV PRN (11:55)
[2024-02-18] MEDS ORDERED: miSOPROStoL 200 MCG TAB PO PRN (11:55)
[2024-02-18] MEDS ORDERED: OXYTOCIN 10 UNIT/ML 1 ML VIAL IM PRN (11:55)
[2024-02-18] MEDS ORDERED: miSOPROStoL 200 MCG TAB RECTAL PRN (11:55)
[2024-02-18] MEDS ORDERED: OXYTOCIN 30 UNITS/500 ML NS 30 UNIT in SALINE 1 500ML.BAG IV SCH (12:00)
[2024-02-18] MEDS: LACTATED RINGERS 1,000 ML IV SCH (14:38)
[2024-02-18] MEDS: AMPICILLIN 2,000 MG in SODIUM CHLORIDE 0.9% 100 ML IVPB STA (14:38)
[2024-02-18] MEDS ORDERED: AMPICILLIN 1,000 MG in SODIUM CHLORIDE 0.9% 50 ML IVPB SCH (16:15)
[2024-02-18] MEDS: NALBUPHINE 10 MG/ML (10 ML MDV) IV PRN (21:20)
[2024-02-18] MEDS: AMPICILLIN 2,000 MG in SODIUM CHLORIDE 0.9% 100 ML IVPB ONE (23:13)
[2024-02-19] MEDS ORDERED: ROPIVACAINE 5 MG/ML 30 ML VIAL ONE (00:49)
[2024-02-19] MEDS ORDERED: fentaNYL (PF) 50 MCG/ML 5 ML AMP ONE (00:49)
[2024-02-19] MEDS ORDERED: SODIUM CHLORIDE 0.9% 250 ML BAG ONE (00:49)
[2024-02-19] MEDS: OXYTOCIN 30 UNITS/500 ML NS 30 UNIT in SALINE 1 500ML.BAG IV SCH (02:03)
[2024-02-19] MEDS: AMPICILLIN 1,000 MG in SODIUM CHLORIDE 0.9% 50 ML IVPB SCH (03:02)
[2024-02-19] MEDS ORDERED: METHYLERGONOVINE 0.2 MG/ML 1 ML AMP IM PRN (07:18)
[2024-02-19] MEDS ORDERED: miSOPROStoL 200 MCG TAB PO PRN (07:18)
[2024-02-19] MEDS ORDERED: MORPHINE SULFATE (PF) 0.3 MG/0.3 ML SYR ONE (07:25)
[2024-02-19] MEDS ORDERED: fentaNYL (PF) 50 MCG/ML 2 ML AMP ONE (07:25)
[2024-02-19] MEDS ORDERED: OXYTOCIN 30 UNITS/500 ML NS BAG IV ONE (07:25)
[2024-02-19] MEDS ORDERED: ONDANSETRON 4 MG/2 ML VIAL ONE (07:25)
[2024-02-19] MEDS: CITRIC ACID-SODIUM CITRATE 15 ML CUP PO ONE (07:28)
--- NOTE | 2024-02-19 08:14 | P.OP ---
Date of Procedure: 02/19/24 Preoperative Diagnosis: IUP at 40-3/7 weeks, arrest of descent Postoperative Diagnosis: Same, plus OP presentation Procedure(s) Performed: Primary low-transverse section Anesthesia: epidural Surgeon: Kelsey Holman Contact Assembler #1: Torie Galindo Estimated Blood Loss (ml): 730 IV fluids (ml): 800 Urine output (ml): 50 Pathology: none sent Condition: stable Disposition: observation Indications for Procedure: 23-year-old 1 para 0 at 40-3/7 weeks that presented to labor and delivery yesterday with complaints of contractions. Patient was having regular contractions but blood pressures were noted to be elevated 150s over 90s to 100. Patient denies signs or symptoms of preeclampsia. Preeclampsia labs were negative. She did have an elevated protein creatinine ratio. Patient was counseled on the need for induction of labor secondary to gestational hypertension. Patient was admitted and Cervidil induction of labor was commenced. Patient progressed through labor eventually becoming uncomfortable and requesting epidural. Patient had the Cervidil removed and was noted to be 4 cm. Epidural was placed without difficulty by anesthesia. Patient progressed to complete began pushing after 2 and half hours of pushing no descent of the head was appreciated with increasing caput formation, suspected occiput posterior presentation was noted. In addition infant had a decel in the heart tones down to the 80s, it did return to baseline with moderate variability, category 2. Patient was counseled on arrest of descent and heart tones status. Recommendation for primary was discussed after all questions were answered patient and significant other agreed. Anesthesia into see patient, and taken back to the operating room Operative Findings: Viable female infant delivered in occiput posterior presentation, weight of 8 pounds 7 ounces. Description of Procedure: The patient was prepped and draped in the usual fashion after epidural anesthesia was administered by the anesthesia department. A Pfannenstiel incision was made and extended of the abdominal cavity without difficulty. The bladder peritoneum was elevated and incised and reflected distally. A 2 cm incision was made in the transverse plane of the lower uterine segment to enter the uterus at which time clear fluid was noted. The incision was extended in both directions using the bandage scissors. The head was encountered within the field and delivered up and through the incision where the nose and mouth were thoroughly suctioned. Remainder of the was delivered onto the surgical field where the cord was doubly clamped, cut, and the infant was passed for resuscitative measures with weight and Apgars as noted above. The placenta was delivered manually, intact, and was grossly normal with a grossly normal three-vessel cord. The uterus was exteriorized and the interior cavity of the uterus swept of any remaining placental and membranous fragments with a laparotomy sponge. The margins of the incision were grasped with Allis clamps and the incision closed in 2 layers. First layer was a running locking layer of 0 Vicryl from margin to margin followed by a second layer of imbricating 0 Vicryl from margin to margin. Any small points of bleeding were then made hemostatic with the Bovie. Once hemostasis was achieved, the posterior cul-de-sac was suctioned with a guard and the uterine and ovarian findings are as noted above. The uterus was replaced within the abdominal cavity and the gutters swept of any remaining blood fluid or clot. The incision was again reexamined and hemostasis was noted to be excellent. Any small point of bleeding were made hemostatic with the Bovie. Once hemostasis was achieved the parietal peritoneum was loosely reapproximated. The layer of muscles were examined and made hemostatic with the Bovie. Attention was then turned to the fascia which was closed with 0 Vicryl in a running fashion from 1 lateral edge to the other.. The subcutaneous tissues were irrigated, made hemostatic with the Bovie, and reapproximated with a running stitch of 30 Vicryl. The skin was reapproximated with 4-0 Vicryl. Estimated blood loss for the case was approximately 730 mL. All sponge instrument and needle counts are correct. There were no complications. The patient tolerated the procedure well and proceeded to the recovery room in stable condition. Both mother and infant are resting comfortably in recovery.
--- NOTE | 2024-02-19 08:14 | P.HPOB ---
History of Present Illness H&P Date: 02/18/24 Chief Complaint: IUP at 40 3/7 seeks gestational HTN 23-year-old 1 para 0 at 40-3/7 weeks that presents to labor and delivery with complaints of contractions. Patient was seen in triage for elevated blood pressures 150s over high 90s were noted. Patient denies signs or symptoms of preeclampsia. Patient is noted to be tamiko irregularly. Patient notes good movement. Patient has been receiving essentially routine care with myself. She has had a couple of lapses throughout care but has always returned. Patient has known blood type of O+, grew beta strep cultures positive. 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 Then blood levels came back and lowered, didnkatharine feel high enough to keep on the synthroid. Off of synthroid since she was about 9 y/o. History of Any Multi-Drug Resistant Organisms: None Reported Past Surgical History: No Surgical Hx Reported Additional Past Surgical History / Comment(s): PT HAD BEEN IN HOSPITAL COUPLE TIMES AND WAS DX WITH ASTHMA IN 2006. PT HAS HX OF AN ENDOSCOPY AT [facility] AND DID FINE WITH ANESTHESIA Past Anesthesia/Blood Transfusion Reactions: No Reported Reaction Additional Past Anesthesia/Blood Transfusion Reaction / Comment(s): NO BLOOD TRANSFUSION Smoking Status: Vaper - Past Family History Brother(s) Family Medical History: Asthma Additional Family Medical History / Comment(s): BIO BROTHER WAS DX W/ASTHMA INFANT BUT GREW OUT OF IT BY AGE 3. Medications and Allergies Home Medications Medication Instructions Recorded Confirmed Type Vit No.179/Iron/Folic 1 each PO DAILY 10/10/23 02/18/24 History [ Tablet] Ferrous Sulfate [Iron] 325 mg PO DAILY 02/18/24 02/18/24 History Allergies Allergy/AdvReac Type Severity Reaction Status Date / Time venom-honey bee Allergy Swelling Verified 02/18/24 10:16 [bee venom (honey bee)] Exam Osteopathic Statement: *. No significant issues noted on an osteopathic structural exam other than those noted in the History and Physical/Consult. Vital Signs Temp Pulse Resp BP Pulse Ox 02/18/24 10:16 97.7 F 71 16 151/98 97 Intake and Output 02/17/24 02/18/24 02/18/24 22:59 06:59 14:59 Other: Weight 76.204 kg Targeted physical exam is performed this date General Is well-nourished well-developed female in no acute distress, breathing is nonlabored, heart has a regular rhythm, abdomen is gravid, on cervical exam per RN she is closed, 50, -3 station, vertex presentation heart tones noted to be category 1 and she is tamiko irregularly. Results Result Diagrams: 02/18/24 10:57 02/18/24 10:57 Abnormal Lab Results - Last 24 Hours (Table) 02/18/24 02/18/24 Range/Units 10:21 10:57 RBC 3.63 L (3.80-5.40) m/uL Hgb 10.3 L (11.4-16.0) gm/dL Hct 31.7 L (34.0-46.0) % Urine Appearance Cloudy H (Clear) Urine Protein 2+ H (Negative) Urine Blood Trace H (Negative) Ur Leukocyte Esterase Large H (Negative) Urine RBC 11 H (0-5) /hpf Urine WBC 24 H (0-5) /hpf Urine Bacteria Few H (None) /hpf Urine Mucus Occasional H (None) /hpf Assessment and Plan (1) Post-dates Current Visit: Yes Status: Acute Code(s): O48.0 - POST-TERM SNOMED Code(s): 57388271 (2) Gestational hypertension Current Visit: Yes Status: Acute Code(s): O13.9 - GESTATIONAL HTN W/O SIGNIFICANT PROTEINURIA, UNSP TRIMESTER SNOMED Code(s): 15783819 Plan: 23-year-old 1 para 0 at 40-3/7 weeks noted elevated blood pressures in triage. Patient initially presented with complaints of contractions. Patient is not deemed to be in labor but with elevated blood pressures is admitted to labor and delivery for induction of labor secondary to gestational hypertension. Patient's cervix is very unfavorable and Cervidil is placed. Will monitor blood pressure and institute labetalol protocol if necessary. Plan is reviewed with patient and patient's significant other, all questions are answered
[2024-02-19] MEDS ORDERED: ONDANSETRON 4 MG/2 ML VIAL IVP PRN (08:27)
[2024-02-19] MEDS ORDERED: diphenhydrAMINE 50 MG/ML 1 ML VIAL IVP PRN ×2 (08:27)
[2024-02-19] MEDS ORDERED: OXYTOCIN 30 UNITS/500 ML NS 30 UNIT in SALINE 1 500ML.BAG IV SCH (08:27)
[2024-02-19] MEDS ORDERED: SIMETHICONE 80 MG CHEWABLE PO PRN (08:27)
[2024-02-19] MEDS ORDERED: diphenhydrAMINE 50 MG CAP PO PRN (08:27)
[2024-02-19] MEDS ORDERED: ZOLPIDEM 5 MG TAB PO PRN (08:27)
[2024-02-19] MEDS ORDERED: METOCLOPRAMIDE 5 MG/ML 2 ML VIAL IVP PRN (08:27)
[2024-02-19] MEDS ORDERED: NALOXONE 0.4 MG/ML 1 ML VIAL IV PRN (08:27)
[2024-02-19] MEDS: ACETAMINOPHEN IV (For NPO) 1,000 MG in EMPTY BAG 1 BAG IVPB SCH (08:51)
[2024-02-19] MEDS: LACTATED RINGERS 1,000 ML IV SCH (08:56)
[2024-02-19] MEDS: SENNOSIDES-DOCUSATE SODIUM 1 EACH TAB PO SCH (08:56)
[2024-02-19] MEDS: PRENATAL VIT-IRON-FOLIC ACID 1 EACH TABLET PO SCH (08:56)
[2024-02-19] MEDS: ACETAMINOPHEN TAB 500 MG TAB PO SCH (09:13)
[2024-02-19] MEDS: IBUPROFEN IV 800 MG in SODIUM CHLORIDE 0.9% 250 ML IV SCH (12:23)
[2024-02-19] MEDS: IBUPROFEN 600 MG TAB PO SCH (12:24)
[2024-02-19] MEDS: diphenhydrAMINE 25 MG CAP PO PRN (21:03)
[2024-02-20] MEDS ORDERED: OXYTOCIN 30 UNITS/500 ML NS 30 UNIT in SALINE 1 500ML.BAG IV SCH
--- NOTE | 2024-02-20 06:27 | P.PN ---
Progress Note - Text Progress Note Date: 02/20/24 Patient doing well. Moderate pain despite multimodal analgesia. Mild pruritis. Has not ambulated, but denies paresthesia or weakness. Denies headache. Back - epidural site clean and dry. A/P POD #1 s/p w/ epidural duramorph - continue multimodal analgesia
[2024-02-20 06:41] LABS: Basophils # (A) 0.1 k/uL (0-0.2); Basophils % (A) 1 %; Eosinophils # (A) 0.1 k/uL (0-0.7); Eosinophils % (A) 1 %; Lymphocytes # (A) 1.1 k/uL (1.0-4.8); Lymphocytes % (A) 16 %; MCH 28.9 pg (25.0-35.0); MCHC 33.1 g/dL (31.0-37.0); MCV 87.3 fL (80.0-100.0); Mean Platelet Volume 9.2; Monocytes # (A) 0.3 k/uL (0-1.0); Monocytes % (A) 4 %; Neutrophils # (A) 5.6 k/uL (1.3-7.7); Neutrophils % (A) 78 %; Platelet Count 196 k/uL (150-450); RBC 2.25 m/uL (3.80-5.40); RDW 15.3 % (11.5-15.5); WBC 7.1 k/uL (3.8-10.6)
[2024-02-20 06:46] LABS: HCT 19.6 % (34.0-46.0); HGB 6.5 gm/dL (11.4-16.0)
--- NOTE | 2024-02-20 08:39 | P.PNOBGPC ---
Subjective - Subjective Principal diagnosis: Postop day 1, primary Interval history: Patient essentially did well overnight, Barragan catheter remains due to vaginal swelling. Patient's lochia has been moderate. She is tolerating clear liquids without nausea or vomiting. Barragan catheter is noted to be draining clear yellow urine. Pain has been moderately well-controlled. She is bottlefeeding. Patient reports: Reports appetite normal (Barragan catheter remains) : doing well, bottle feeding Objective - Vital Signs Latest vital signs: Vital Signs Temp Pulse Resp BP Pulse Ox 02/20/24 03:43 98.6 F 84 18 119/72 02/19/24 20:20 128/83 02/19/24 16:00 98 F 77 15 138/97 98 02/19/24 12:28 97.7 F 90 16 139/91 97 02/19/24 10:20 98.3 F 84 16 131/65 99 02/19/24 10:05 83 16 118/59 99 02/19/24 09:50 86 16 118/59 98 02/19/24 09:35 93 16 135/68 98 02/19/24 09:20 86 16 132/69 99 02/19/24 09:05 85 16 137/74 100 02/19/24 08:50 83 16 155/75 100 Intake and Output 02/19/24 02/20/24 02/20/24 22:59 06:59 14:59 Output Total 2200 Balance -2200 Output: Urine 1800 Uretheral (Barragan) 900 Output, Quantitative 400 Blood Loss Other: # Voids 0 - Exam Extremities: Present: normal Abdomen: Present: normal appearance, soft Incision: Present: normal, intact Uterus: Present: normal, firm Comments: Vulvar swelling is appreciated. Decreased from yesterday. - Labs Labs: Abnormal Lab Results - Last 24 Hours (Table) 02/20/24 Range/Units 06:09 RBC 2.25 L (3.80-5.40) m/uL Hgb 6.5 L* D (11.4-16.0) gm/dL Hct 19.6 L* (34.0-46.0) % Assessment and Plan (1) Post-dates Current Visit: Yes Status: Acute Code(s): O48.0 - POST-TERM SNOMED Code(s): 51003620 (2) Gestational hypertension Current Visit: Yes Status: Acute Code(s): O13.9 - GESTATIONAL HTN W/O SIGNIFICANT PROTEINURIA, UNSP TRIMESTER SNOMED Code(s): 08931416 (3) Arrest of descent, delivered, current hospitalization Current Visit: Yes Status: Acute Code(s): O62.1 - SECONDARY UTERINE INERTIA SNOMED Code(s): 19892651 (4) Status post section Current Visit: Yes Status: Acute Code(s): Z98.891 - HISTORY OF UTERINE SCAR FROM PREVIOUS SURGERY SNOMED Code(s): 435018477 Plan: 23-year-old G1 now P1 status post primary for arrest of descent. Patient has noted vulvar swelling so Barragan catheter was left in place overnight. Will plan to discontinue Barragan this afternoon. Advance diet to regular. Encourage increase ambulation.
[2024-02-20] MEDS: FERROUS SULFATE 325 MG TAB PO SCH (08:43)
--- NOTE | 2024-02-21 08:44 | P.DS ---
Providers Date of admission: 02/18/24 11:25 Expected date of discharge: 02/21/24 Attending physician: Kelsey Holman Primary care physician: Stated None - Discharge Diagnosis(es) (1) Post-dates Current Visit: Yes Status: Acute (2) Gestational hypertension Current Visit: Yes Status: Acute (3) Arrest of descent, delivered, current hospitalization Current Visit: Yes Status: Acute (4) Status post section Current Visit: Yes Status: Acute Hospital Course: 23-year-old 1 now para 1 that presented to labor and delivery on 02/17 with complaints of painful contractions. Patient's blood pressure was noted to be elevated through her stay in triage. Patient was not in labor but was admitted for induction of labor secondary to gestational hypertension and postdates. Patient had Cervidil placed around 11 AM on 02/17. Patient did well with the Cervidil it was removed and patient was tamiko and painful. Around midnight the patient was noted to be 4 cm and requested epidural. Epidural was placed without difficulty by the anesthesia department. Patient made good progress toward complete dilation. Once completely dilated patient began pushing. After approximately 2-1/2 hours plus of pushing no descent of the head was appreciated and significant vulvar swelling was appreciated. Heart tones had noted deceleration down to the 80s x 2 in addition, return to category 2 heart tones was noted. Patient was counseled on exam and recommendation of primary . Patient stated understanding and wished to proceed with primary . Patient delivered a viable female at 743, weight of 8 pounds 7 ounces, Apgars of 9 and 9 at 1 and 5 minutes respectively. For full details on the please see the dictated operative report. Patient's postoperative course was essentially uncomplicated. Barragan was in place for approximately 24 hours secondary to vulvar swelling. Once removed patient had spontaneous void without difficulty. Today on this postoperative day #2 she is ambulating and voiding without difficulty. She is tolerating a regular diet without nausea or vomiting. She states her pain is well- controlled. She denies concerns and would like discharge home. Patient Condition at Discharge: Good Plan - Discharge Summary New Discharge Prescriptions: No Action Vit No.179/Iron/Folic [ Tablet] 1 each PO DAILY Ferrous Sulfate [Iron] 325 mg PO DAILY Discharge Medication List Vit No.179/Iron/Folic [ Tablet] 1 each PO DAILY 10/10/23 [History] Ferrous Sulfate [Iron] 325 mg PO DAILY 02/18/24 [History] Follow up Appointment(s)/Referral(s): Kelsey Holman DO [Doctor of Osteopathic Medicine] - 03/01/24 2:15 pm (Post appointment 04-02-2024 at 11am) Patient Instructions/Handouts: (DC), (GEN) Activity/Diet/Wound Care/Special Instructions: No intercourse, tampons or baths. No driving for two weeks. Call with any fever, shakes or chills, with any pain not alleviated by over the counter meds, or with any questions or concerns. Qytx-lll-mpiooon ibuprofen 600 mg or 3 tablets every 6 hours as needed for pain. Discharge Disposition: HOME SELF-CARE
[2024-02-21 10:19] LABS: MCH 28.3 pg (25.0-35.0); MCHC 32.1 g/dL (31.0-37.0); Mean Platelet Volume 10.4; Platelet Count 203 k/uL (150-450); RBC 1.97 m/uL (3.80-5.40); RDW 15.5 % (11.5-15.5); WBC 5.6 k/uL (3.8-10.6)
[2024-02-21 10:23] LABS: HGB 5.6 gm/dL (11.4-16.0)
[2024-02-21 10:24] LABS: HCT 17.4 % (34.0-46.0)
[2024-02-21 20:21] LABS: Basophils % (A) 0 %; Eosinophils # (A) 0.1 k/uL (0-0.7); Eosinophils % (A) 2 %; HCT 22.4 % (34.0-46.0); Hypochromasia Slight; Lymphocytes # (A) 1.1 k/uL (1.0-4.8); Lymphocytes % (A) 19 %; MCH 29.3 pg (25.0-35.0); MCHC 32.5 g/dL (31.0-37.0); MCV 90.2 fL (80.0-100.0); Mean Platelet Volume 9.4; Monocytes # (A) 0.3 k/uL (0-1.0); Monocytes % (A) 4 %; Neutrophils # (A) 4.1 k/uL (1.3-7.7); Neutrophils % (A) 72 %; Platelet Count 266 k/uL (150-450); RBC 2.48 m/uL (3.80-5.40); RDW 15.3 % (11.5-15.5); WBC 5.8 k/uL (3.8-10.6)
[2024-02-21 20:39] LABS: HGB 7.3 gm/dL (11.4-16.0)
[2024-02-22] MEDS: LABETALOL 100 MG TAB PO SCH ×2 (02:25→13:25)
--- NOTE | 2024-02-22 08:36 | P.PNOBGVD ---
Subjective - Subjective Principal diagnosis: Day #3, gestational hypertension status post primary C- section Interval history: Patient is feeling well this morning. She is ambulating and voiding without difficulty. She did have an elevated blood pressure in the evening highest 160/1 teens. Patient at the time had noted headache. Labetalol was begun. Blood pressures came down nicely with 100 mg. Patient denies signs or symptoms of preeclampsia this morning. Patient reports: Reports appetite normal, Reports voiding normally, Reports pain well controlled, Reports ambulating normally Ada: doing well, bottle feeding Objective - Latest Vital Signs Latest vital signs: Vital Signs Temp Pulse Pulse Resp BP BP BP 02/22/24 06:03 87 142/88 02/22/24 03:00 76 137/89 02/22/24 02:01 79 164/115 159/99 02/22/24 00:00 98.3 F 79 18 146/90 02/21/24 20:25 86 146/94 147/95 02/21/24 16:00 97.9 F 71 14 139/93 02/21/24 14:35 98.1 F 89 14 135/82 02/21/24 13:45 81 14 138/82 02/21/24 12:47 98.2 F 72 15 144/93 02/21/24 12:27 98.3 F 74 15 135/88 02/21/24 12:17 98.0 F 76 13 133/88 Pulse Ox 02/22/24 06:03 02/22/24 03:00 02/22/24 02:01 02/22/24 00:00 98 02/21/24 20:25 02/21/24 16:00 02/21/24 14:35 99 02/21/24 13:45 98 02/21/24 12:47 98 02/21/24 12:27 98 02/21/24 12:17 99 Intake and Output 02/21/24 02/22/24 02/22/24 22:59 06:59 14:59 Intake Total 740 Balance 740 Intake: Oral 740 Other: # Voids 1 1 # Bowel Movements 1 - Exam Extremities: Present: normal, edema Abdomen: Present: normal appearance, soft Uterus: Present: normal, firm - Labs Labs: Abnormal Lab Results - Last 24 Hours (Table) 02/18/24 02/21/24 02/21/24 Range/Units 11:23 10:03 20:08 RBC 1.97 L 2.48 L (3.80-5.40) m/uL Hgb 5.6 L* 7.3 L D (11.4-16.0) gm/dL Hct 17.4 L* 22.4 L (34.0-46.0) % Crossmatch See Detail Assessment and Plan (1) Post-dates Current Visit: Yes Status: Acute Code(s): O48.0 - POST-TERM SNOMED Code(s): 72878427 (2) Gestational hypertension Current Visit: Yes Status: Acute Code(s): O13.9 - GESTATIONAL HTN W/O SIGNIFICANT PROTEINURIA, UNSP TRIMESTER SNOMED Code(s): 44101175 (3) Arrest of descent, delivered, current hospitalization Current Visit: Yes Status: Acute Code(s): O62.1 - SECONDARY UTERINE INERTIA SNOMED Code(s): 63925934 (4) Status post section Current Visit: Yes Status: Acute Code(s): Z98.891 - HISTORY OF UTERINE SCAR FROM PREVIOUS SURGERY SNOMED Code(s): 018213374 (5) Acute blood loss anemia Current Visit: Yes Status: Acute Code(s): D62 - ACUTE POSTHEMORRHAGIC ANEMIA SNOMED Code(s): 614047745 Plan: Patient is feeling well this morning. She had a subsequent 1 unit of packed red blood cells yesterday after hemoglobin was noted to be 5.6. Patient had good response to blood transfusion elevated to over 7. Patient did have noted elevated blood pressures after the transfusion 140s over 90s highest around 2 AM, 160s over 112. Patient was given 100 mg of labetalol which she responded to nicely. Blood pressures 130s over 80s to 90s this morning. Plan to continue to monitor blood pressures throughout the day, patient is anxious to get home. Discussed importance of monitoring blood pressures while in the hospital given her diagnose of gestational hypertension at admission.
[2024-02-22 13:00] VITALS: RESP 16
[2024-02-22] MEDS: LABETALOL 200 MG TAB PO STA (20:43)
[2024-02-22] MEDS: hydrALAZINE HCL 20 MG/ML 1 ML VIAL IVP STA (21:54)
[2024-02-23] MEDS: LABETALOL 200 MG TAB PO SCH (03:57)
[2024-02-23] MEDS: NIFEdipine 10 MG CAP PO STA (06:44)
--- NOTE | 2024-02-23 11:26 | P.DS ---
Providers Date of admission: 02/18/24 11:25 Expected date of discharge: 02/23/24 Attending physician: Kelsey Holman Primary care physician: Stated None - Discharge Diagnosis(es) (1) Post-dates Current Visit: Yes Status: Acute (2) Gestational hypertension Current Visit: Yes Status: Acute (3) Arrest of descent, delivered, current hospitalization Current Visit: Yes Status: Acute (4) Status post section Current Visit: Yes Status: Acute (5) Acute blood loss anemia Current Visit: Yes Status: Acute Hospital Course: 23-year-old 1 now para 1 that presented to labor and delivery on 02/17 with complaints of contractions. Patient was not noted to be in labor but did have elevated blood pressures 150s over 90s to 100. Patient was without signs of preeclampsia. Initial preeclampsia labs were drawn and found to be negative. Patient was admitted for Cervidil induction of labor. Patient made good progress through labor after Cervidil was removed she was noted to be 4 cm. Patient did request epidural, epidural was placed without difficulty by the ane sthesia department. Patient made good progress toward complete dilation. Once completely dilated amniotomy was performed and clear fluid was obtained. Patient began pushing once completely dilated. After approximately 2-1/2 hours of pushing no descent of the head was appreciated in occiput posterior presentation was suspected. Patient was counseled on findings and questions were answered. Patient and agreed to proceed with primary low- transverse section. was performed without difficulty, for full details on the please see the dictated operative report. Patient delivered a viable female at 743, weight of 8 pounds 7 ounces. Her postop course has been complicated by acute blood loss anemia for which she received 1 unit of packed red blood cells, increasing blood pressure was noted in addition on postoperative day #2. Labetalol p.o. was begun. Patient has been without signs or symptoms of preeclampsia throughout this admission. On this postoperative day #4 blood pressures are reasonably well-controlled with 200 mg of labetalol 3 times a day. Patient is very anxious to be discharged home. She is ambulating and voiding without difficulty, she denies signs or symptoms of preeclampsia, her lochia is minimal. She has been feeding. She has good family support. Patient Condition at Discharge: Good Plan - Discharge Summary New Discharge Prescriptions: No Action Vit No.179/Iron/Folic [ Tablet] 1 each PO DAILY Ferrous Sulfate [Iron] 325 mg PO DAILY Discharge Medication List Vit No.179/Iron/Folic [ Tablet] 1 each PO DAILY 10/10/23 [History] Ferrous Sulfate [Iron] 325 mg PO DAILY 02/18/24 [History] Follow up Appointment(s)/Referral(s): Kelsey Holman DO [Doctor of Osteopathic Medicine] - 03/01/24 2:15 pm (Post appointment 04-02-2024 at 11am) Patient Instructions/Handouts: (DC), (GEN) Activity/Diet/Wound Care/Special Instructions: No intercourse, tampons or baths. No driving for two weeks. Call with any fever, shakes or chills, with any pain not alleviated by over the counter meds, or with any questions or concerns. Mlks-zju-ditsfso ibuprofen 600 mg or 3 tablets every 6 hours as needed for pain. Patient is to check her blood pressures 1 hour after medication and follow-up on Tuesday for blood pressure check. Discharge Disposition: HOME SELF-CARE
[2024-02-23 12:24] VITALS: BP 148/94; PULSE 72; TEMP 98.1
[2024-02-23] MEDS: LABETALOL 100 MG TAB PO SCH (13:27)
== END 2024-02-23 15:30 | disposition home or self-care (01) | DRG 787 ==
LOC: FBPOP 09:49 → 4FBP 11:25
PROVIDERS: ADMIT Obstetrics & Gynecology Obstetrics; ATTEND Obstetrics & Gynecology Obstetrics
PROC: 3E0P7VZ Introduction of Hormone into Female Reproductive, Via Natural or Artificial Opening (ICD-10-PCS; 2024-02-19)
PROC: 10D00Z1 Extraction of Products of Conception, Low, Open Approach (ICD-10-PCS; principal; 2024-02-19 07:30)
PROC: 30233N1 Transfusion of Nonautologous Red Blood Cells into Peripheral Vein, Percutaneous Approach (ICD-10-PCS; 2024-02-21)
DX: O13.4 Gestational [pregnancy-induced] hypertension without significant proteinuria, complicating childbirth (principal); D62 Acute posthemorrhagic anemia; O48.0 Post-term pregnancy; O12.14 Gestational proteinuria, complicating childbirth; O62.1 Secondary uterine inertia; O90.81 Anemia of the puerperium; L29.9 Pruritus, unspecified; Z37.0 Single live birth; Z3A.40 40 weeks gestation of pregnancy
CPT/HCPCS: 59025; 80306; 81001; 82565; 82570; 83615; 84112; 84156; 84450; 84460; 84520; 84550; 85025; 85027; 86850; 86900; 86901; 86920; 99215